=== PATIENT | female | born 1980 | race Caucasian/White ===

== ENCOUNTER 2017-11-20 10:48 | Day surgery (SDC) | payer MEDICAID ==
[~2017-11-20 10:48] MED LIST: ARIP30TA7 PO; BUSP10TA11 PO; GABA600T2 PO; LISI-600 PO; METF500T7 PO; NYST15PO4 TOP
[2017-11-20] MEDS ORDERED: LIDOcaine 2% 5ml jelly ONE (11:16)
[2017-11-20] MEDS ORDERED: TRAM50TA2 PO (14:11)
== END 2017-11-20 11:56 | disposition home or self-care (01) ==
LOC: WOUND CARE 10:48
PROVIDERS: ATTEND Surgery
DX: T81.89XD Other complications of procedures, not elsewhere classified, subsequent encounter (principal); L98.491 Non-pressure chronic ulcer of skin of other sites limited to breakdown of skin; M19.90 Unspecified osteoarthritis, unspecified site; I25.10 Atherosclerotic heart disease of native coronary artery without angina pectoris; I10 Essential (primary) hypertension; E66.9 Obesity, unspecified; F41.9 Anxiety disorder, unspecified; F32.9 Major depressive disorder, single episode, unspecified; F20.9 Schizophrenia, unspecified; F10.10 Alcohol abuse, uncomplicated; F17.200 Nicotine dependence, unspecified, uncomplicated; Z86.73 Personal history of transient ischemic attack (TIA), and cerebral infarction without residual deficits; Y83.8 Other surgical procedures as the cause of abnormal reaction of the patient, or of later complication, without mention of misadventure at the time of the procedure
CPT/HCPCS: 97597; A6021; A6206; A6213

== ENCOUNTER 2017-12-04 10:44 | Outpatient (CLI) | payer MEDICAID ==
[~2017-12-04 10:44] MED LIST changes: +TRAM50TA2 PO
== END 2017-12-04 11:35 | disposition home or self-care (01) ==
LOC: WOUND CARE 10:44 → EDSTATUS 11:00 → WOUND CARE 11:35
PROVIDERS: ATTEND Surgery
DX: T81.89XD Other complications of procedures, not elsewhere classified, subsequent encounter (principal); L98.491 Non-pressure chronic ulcer of skin of other sites limited to breakdown of skin; M19.90 Unspecified osteoarthritis, unspecified site; I25.10 Atherosclerotic heart disease of native coronary artery without angina pectoris; I10 Essential (primary) hypertension; E66.9 Obesity, unspecified; F41.9 Anxiety disorder, unspecified; F32.9 Major depressive disorder, single episode, unspecified; F20.9 Schizophrenia, unspecified; F10.10 Alcohol abuse, uncomplicated; F17.200 Nicotine dependence, unspecified, uncomplicated; Z86.73 Personal history of transient ischemic attack (TIA), and cerebral infarction without residual deficits; Y83.8 Other surgical procedures as the cause of abnormal reaction of the patient, or of later complication, without mention of misadventure at the time of the procedure
CPT/HCPCS: 99215; A6213; A6223

== ENCOUNTER 2018-01-29 10:49 | Outpatient (CLI) | payer MEDICAID | END 2018-01-29 12:17 | disposition home or self-care (01) | LOC: WOUND CARE 10:49 → EDSTATUS 11:00 → WOUND CARE 12:17 | PROVIDERS: ATTEND Surgery | DX: T81.89XD Other complications of procedures, not elsewhere classified, subsequent encounter (principal); L98.491 Non-pressure chronic ulcer of skin of other sites limited to breakdown of skin; M19.90 Unspecified osteoarthritis, unspecified site; I25.10 Atherosclerotic heart disease of native coronary artery without angina pectoris; I10 Essential (primary) hypertension; E66.9 Obesity, unspecified; F41.9 Anxiety disorder, unspecified; F32.9 Major depressive disorder, single episode, unspecified; F20.9 Schizophrenia, unspecified; F10.10 Alcohol abuse, uncomplicated; F17.200 Nicotine dependence, unspecified, uncomplicated; Z86.73 Personal history of transient ischemic attack (TIA), and cerebral infarction without residual deficits; Y83.8 Other surgical procedures as the cause of abnormal reaction of the patient, or of later complication, without mention of misadventure at the time of the procedure | CPT/HCPCS: 99215; A6021; A6206; A6212; A6213 ==

== ENCOUNTER 2018-02-26 10:50 | Day surgery (SDC) | payer MEDICAID ==
[2018-02-26] MEDS ORDERED: LIDOcaine 2% 5ml jelly ONE (11:13)
== END 2018-02-26 12:02 | disposition home or self-care (01) ==
LOC: WOUND CARE 10:50
PROVIDERS: ATTEND Surgery
DX: T81.89XD Other complications of procedures, not elsewhere classified, subsequent encounter (principal); L98.491 Non-pressure chronic ulcer of skin of other sites limited to breakdown of skin; M19.90 Unspecified osteoarthritis, unspecified site; I25.10 Atherosclerotic heart disease of native coronary artery without angina pectoris; I10 Essential (primary) hypertension; E66.9 Obesity, unspecified; F41.9 Anxiety disorder, unspecified; F32.9 Major depressive disorder, single episode, unspecified; F20.9 Schizophrenia, unspecified; F10.10 Alcohol abuse, uncomplicated; F17.200 Nicotine dependence, unspecified, uncomplicated; Z86.73 Personal history of transient ischemic attack (TIA), and cerebral infarction without residual deficits; Y83.8 Other surgical procedures as the cause of abnormal reaction of the patient, or of later complication, without mention of misadventure at the time of the procedure
CPT/HCPCS: 97597; 97598; A6021; A6212

== ENCOUNTER 2018-03-03 16:19 | Emergency (ER) | payer MEDICAID ==
[~2018-03-03] VITALS: Ht 160 cm; Wt 191.0 kg
[2018-03-03] MEDS ORDERED: CefTRIAXone 2gm/D5W 50ml 50 ML IV ONE (18:20)
[2018-03-03] MEDS ORDERED: CEPH-572 PO (18:47)
[2018-03-03 18:53] LABS: BASOPHILS % (AUTO) 0.3 % (0-1); EOSINOPHILS # (AUTO) 0.4 X10'3 (0-0.9); EOSINOPHILS % (AUTO) 3.2 % (0-6); HEMATOCRIT 25.9 % (35.0-45.0); HEMOGLOBIN 8.4 g/dl (12.0-16.0); LYMPHOCYTES # (AUTO) 1.6 X10'3 (1.1-4.8); MEAN CORPUSCULAR HEMOGLOBIN 27.2 PG (27.0-31.0); MEAN CORPUSCULAR HGB CONC 32.4 % (33.0-36.5); MEAN CORPUSCULAR VOLUME 83.9 FL (78-98); MEAN PLATELET VOLUME 7.3 FL (7.4-10.4); MONOCYTES # (AUTO) 0.7 X10'3 (0-0.9); MONOCYTES % (AUTO) 5.5 % (2-12); NEUTROPHILS # (AUTO) 9.9 X10'3 (1.8-7.7); PLATELET COUNT 404 X10'3 (140-440); RED BLOOD COUNT 3.08 X10'6 (4.20-5.60); RED CELL DISTRIBUTION WIDTH 19.9 % (11.5-14.5); WHITE BLOOD COUNT 12.6 X10'3 (4.5-11.0)
[2018-03-03 19:02] LABS: ANION GAP 12 (8-16); BLOOD UREA NITROGEN 16 MG/DL (7-18); BUN/CREATININE RATIO 14.2 (6.6-38.0); CALCIUM 8.8 MG/DL (8.5-10.1); CHLORIDE 102 MMOL/L (99-107); CREATININE 1.13 MG/DL (0.40-0.90); GLUCOSE 126 MG/DL (70-104); POTASSIUM 3.7 MMOL/L (3.5-5.1); SODIUM 140 MMOL/L (135-145); TOTAL CARBON DIOXIDE 26.1 MMOL/L (24-32); eGFR 53 ML/MIN
[2018-03-03 19:03] VITALS: BP 161/92
== END 2018-03-03 22:14 | disposition home or self-care (01) ==
LOC: ER 16:19
DX: L03.115 Cellulitis of right lower limb (principal); F17.210 Nicotine dependence, cigarettes, uncomplicated; D64.9 Anemia, unspecified; I10 Essential (primary) hypertension; Z98.890 Other specified postprocedural states; Z79.899 Other long term (current) drug therapy
CPT/HCPCS: 36415; 80048; 85025; 93971; 96365; 99285; J0696

== ENCOUNTER 2018-04-21 10:11 | Day surgery (SDC) | payer MEDICAID ==
[2018-04-21] MEDS ORDERED: LIDOcaine 2% 5ml jelly ONE (11:47)
[2018-04-21] MEDS ORDERED: CARI4.5C PO (16:46)
[2018-04-21] MEDS ORDERED: HYDR-569 PO (16:46)
== END 2018-04-21 12:57 | disposition home or self-care (01) ==
LOC: WOUND CARE 10:11
PROVIDERS: ATTEND Surgery
DX: T81.31XD Disruption of external operation (surgical) wound, not elsewhere classified, subsequent encounter (principal); L98.491 Non-pressure chronic ulcer of skin of other sites limited to breakdown of skin; M19.90 Unspecified osteoarthritis, unspecified site; I25.10 Atherosclerotic heart disease of native coronary artery without angina pectoris; I10 Essential (primary) hypertension; E66.9 Obesity, unspecified; F41.9 Anxiety disorder, unspecified; F32.9 Major depressive disorder, single episode, unspecified; F20.9 Schizophrenia, unspecified; F10.10 Alcohol abuse, uncomplicated; F17.200 Nicotine dependence, unspecified, uncomplicated; Z86.73 Personal history of transient ischemic attack (TIA), and cerebral infarction without residual deficits; Y83.8 Other surgical procedures as the cause of abnormal reaction of the patient, or of later complication, without mention of misadventure at the time of the procedure
CPT/HCPCS: 11042; 87070; 87075; 87102; 87176; 97605; A4461; A6243; A6266

== ENCOUNTER 2018-04-23 10:35 | Day surgery (SDC) | payer MEDICAID ==
[~2018-04-23 10:35] MED LIST changes: +CARI4.5C PO; +HYDR-569 PO
[2018-04-23] MEDS ORDERED: LIDOcaine 2% 5ml jelly ONE (11:20)
== END 2018-04-23 12:27 | disposition home or self-care (01) ==
LOC: WOUND CARE 10:35
PROVIDERS: ATTEND Surgery
DX: T81.31XD Disruption of external operation (surgical) wound, not elsewhere classified, subsequent encounter (principal); L98.491 Non-pressure chronic ulcer of skin of other sites limited to breakdown of skin; M19.90 Unspecified osteoarthritis, unspecified site; I25.10 Atherosclerotic heart disease of native coronary artery without angina pectoris; I10 Essential (primary) hypertension; E66.9 Obesity, unspecified; F41.9 Anxiety disorder, unspecified; F32.9 Major depressive disorder, single episode, unspecified; F20.9 Schizophrenia, unspecified; F10.10 Alcohol abuse, uncomplicated; F17.200 Nicotine dependence, unspecified, uncomplicated; Z86.73 Personal history of transient ischemic attack (TIA), and cerebral infarction without residual deficits; Y83.8 Other surgical procedures as the cause of abnormal reaction of the patient, or of later complication, without mention of misadventure at the time of the procedure
CPT/HCPCS: 97597; 97598; A6212; 97605; A4456

== ENCOUNTER 2018-05-01 10:58 | Day surgery (SDC) | payer MEDICAID ==
[2018-05-01] MEDS ORDERED: LIDOcaine 2% 5ml jelly ONE (12:07)
== END 2018-05-01 13:43 | disposition home or self-care (01) ==
LOC: WOUND CARE 10:58
PROVIDERS: ATTEND Surgery
DX: T81.31XD Disruption of external operation (surgical) wound, not elsewhere classified, subsequent encounter (principal); L98.491 Non-pressure chronic ulcer of skin of other sites limited to breakdown of skin; M19.90 Unspecified osteoarthritis, unspecified site; I25.10 Atherosclerotic heart disease of native coronary artery without angina pectoris; I10 Essential (primary) hypertension; E66.9 Obesity, unspecified; F41.9 Anxiety disorder, unspecified; F32.9 Major depressive disorder, single episode, unspecified; F20.9 Schizophrenia, unspecified; F10.10 Alcohol abuse, uncomplicated; F17.200 Nicotine dependence, unspecified, uncomplicated; Z86.73 Personal history of transient ischemic attack (TIA), and cerebral infarction without residual deficits; Y83.8 Other surgical procedures as the cause of abnormal reaction of the patient, or of later complication, without mention of misadventure at the time of the procedure
CPT/HCPCS: 11045; 97606

== ENCOUNTER 2018-05-03 15:54 | Emergency (ER) | payer MEDICAID ==
[~2018-05-03] VITALS: Ht 160 cm; Wt 195.0 kg
[2018-05-03 16:17] LABS: BASOPHILS % (AUTO) 0.4 % (0-1); EOSINOPHILS # (AUTO) 0.5 X10'3 (0-0.9); EOSINOPHILS % (AUTO) 4.3 % (0-6); HEMOGLOBIN 7.7 g/dl (12.0-16.0); LYMPHOCYTES # (AUTO) 2.4 X10'3 (1.1-4.8); LYMPHOCYTES % (AUTO) 20.8 % (21-51); MEAN CORPUSCULAR HEMOGLOBIN 27.3 PG (27.0-31.0); MEAN CORPUSCULAR HGB CONC 32.1 % (33.0-36.5); MEAN CORPUSCULAR VOLUME 85.3 FL (78-98); MEAN PLATELET VOLUME 6.6 FL (7.4-10.4); MONOCYTES # (AUTO) 0.7 X10'3 (0-0.9); NEUTROPHILS # (AUTO) 7.8 X10'3 (1.8-7.7); NEUTROPHILS % (AUTO) 68.5 % (42-75); PLATELET COUNT 533 X10'3 (140-440); RED BLOOD COUNT 2.82 X10'6 (4.20-5.60); RED CELL DISTRIBUTION WIDTH 19.1 % (11.5-14.5); WHITE BLOOD COUNT 11.4 X10'3 (4.5-11.0)
[2018-05-03 16:26] LABS: PARTIAL THROMBOPLASTIN TIME 29 SECONDS (22-32); PROTHROMBIN TIME 9.9 SECONDS (9.0-12.0)
[2018-05-03 16:31] LABS: ALANINE AMINOTRANSFERASE 11 U/L (12-78); ALBUMIN 2.9 G/DL (3.4-5.0); ALBUMIN/GLOBULIN RATIO 0.6 (1.1-1.5); ALKALINE PHOSPHATASE 89 IU/L (46-116); ANION GAP 10 (8-16); ASPARTATE AMINO TRANSFERASE 5 U/L (10-37); BILIRUBIN,TOTAL 0.3 MG/DL (0.1-1.0); BLOOD UREA NITROGEN 15 MG/DL (7-18); BUN/CREATININE RATIO 13.2 (6.6-38.0); CALCIUM 8.8 MG/DL (8.5-10.1); CHLORIDE 102 MMOL/L (99-107); CREATININE 1.14 MG/DL (0.40-0.90); GLUCOSE 113 MG/DL (70-104); POTASSIUM 3.8 MMOL/L (3.5-5.1); SODIUM 139 MMOL/L (135-145); TOTAL CARBON DIOXIDE 26.6 MMOL/L (24-32); TOTAL PROTEIN 7.6 G/DL (6.4-8.2); eGFR 53 ML/MIN
[2018-05-03 16:54] LABS: PLATELET ESTIMATE INCREASED
[2018-05-03 16:55] LABS: ANISOCYTOSIS 2+; HYPOCHROMASIA 1+; POLYCHROMASIA 2+
[2018-05-03 18:08] LABS: CLARITY,URINE SLIGHTLY CLOUDY (Clear); COLOR,URINE YELLOW (Yellow); GLUCOSE, URINE NEGATIVE (Neg); KETONES,URINE NEGATIVE (Neg); LEUKOCYTE ESTERASE ,URINE TRACE (Neg); NITRITES, URINE NEGATIVE (Neg); OCCULT BLOOD,URINE LARGE (Neg); PH,URINE 5.5 (4.8-8.0); PROTEIN,URINE NEGATIVE (Neg); UROBILINOGEN,URINE 0.2 E.U/dL (0.2-1.0)
[2018-05-03 18:09] LABS: UA COLLECTION TYPE NON-SPECIFIED
[2018-05-03 18:14] LABS: BACTERIA,URINE 1+ /HPF (Neg); COARSE GRANULAR CAST 0-3 /LPF (NEGATIVE); MUCUS STRANDS FEW /LPF (Neg); RBC,URINE 50-100 /HPF (0-2); SQUAMOUS EPITHELIAL CELL,UR FEW /LPF (FEW)
[2018-05-03] MEDS ORDERED: vancomycin/NS 1 GM ADD-VANTAGE 250 ML X 1 DOSE IV ONE (18:35)
[2018-05-03] MEDS ORDERED: ondansetron 4mg rapidly disintigrating tab PO ONE (19:10)
[2018-05-03] MEDS ORDERED: HYDROcodone/acetaminophen 10/325mg tab PO ONE (19:10)
[2018-05-03] MEDS ORDERED: piperacillin/tazo 3.375gm/50ml 50 ML IV ONE (20:00)
[2018-05-03] MEDS ORDERED: BACDS PO (21:19)
[2018-05-03] MEDS ORDERED: CEPH500C2 PO (21:19)
[2018-05-03 22:28] VITALS: BP 105/55
== END 2018-05-03 22:31 | disposition home or self-care (01) ==
LOC: ER 15:54
DX: T81.4XXA Infection following a procedure, initial encounter (principal); S31.109D Unspecified open wound of abdominal wall, unspecified quadrant without penetration into peritoneal cavity, subsequent encounter; I25.10 Atherosclerotic heart disease of native coronary artery without angina pectoris; F17.200 Nicotine dependence, unspecified, uncomplicated; F31.9 Bipolar disorder, unspecified; I10 Essential (primary) hypertension; Z98.890 Other specified postprocedural states; Z79.2 Long term (current) use of antibiotics; Z79.899 Other long term (current) drug therapy; X58.XXXD Exposure to other specified factors, subsequent encounter
CPT/HCPCS: 36415; 71045; 80053; 81001; 83605; 84145; 85025; 85610; 85730; 87040; 87088; 96365; 96366; 96368; 99285; A6253; A6258; A6446; A6449; J2543; J3370; J7030

== ENCOUNTER 2018-05-06 11:06 | Day surgery (SDC) | payer MEDICAID ==
[~2018-05-06 11:06] MED LIST changes: +BACDS PO; +CEPH500C2 PO
[2018-05-06] MEDS ORDERED: LIDOcaine 2% 5ml jelly ONE ×2 (12:14)
== END 2018-05-06 13:53 | disposition home or self-care (01) ==
LOC: WOUND CARE 11:06
PROVIDERS: ATTEND Surgery
DX: T81.31XD Disruption of external operation (surgical) wound, not elsewhere classified, subsequent encounter (principal); L98.491 Non-pressure chronic ulcer of skin of other sites limited to breakdown of skin; M19.90 Unspecified osteoarthritis, unspecified site; I25.10 Atherosclerotic heart disease of native coronary artery without angina pectoris; I10 Essential (primary) hypertension; E66.9 Obesity, unspecified; F41.9 Anxiety disorder, unspecified; F32.9 Major depressive disorder, single episode, unspecified; F20.9 Schizophrenia, unspecified; F10.10 Alcohol abuse, uncomplicated; F17.200 Nicotine dependence, unspecified, uncomplicated; Z86.73 Personal history of transient ischemic attack (TIA), and cerebral infarction without residual deficits; Y83.8 Other surgical procedures as the cause of abnormal reaction of the patient, or of later complication, without mention of misadventure at the time of the procedure
CPT/HCPCS: 11045; 97606

== ENCOUNTER 2018-05-16 11:02 | Day surgery (SDC) | payer MEDICAID ==
[~2018-05-16 11:02] MED LIST changes: -BACDS PO
[2018-05-16] MEDS ORDERED: LIDOcaine 2% 5ml jelly ONE (11:53)
[2018-05-20] MEDS ORDERED: NAPR-1144 (15:34)
[2018-05-20] MEDS ORDERED: Nystatin (15:34)
[2018-05-20] MEDS ORDERED: LISI1TAB13 (15:34)
[2018-05-20] MEDS ORDERED: DOCU-267 (15:34)
[2018-05-20] MEDS ORDERED: HYDR-3973 (15:34)
[2018-05-20] MEDS ORDERED: SENN8.6T19 (15:34)
== END 2018-05-16 13:15 | disposition home or self-care (01) ==
LOC: WOUND CARE 11:02
PROVIDERS: ATTEND Surgery
DX: T81.31XD Disruption of external operation (surgical) wound, not elsewhere classified, subsequent encounter (principal); L98.492 Non-pressure chronic ulcer of skin of other sites with fat layer exposed; M19.90 Unspecified osteoarthritis, unspecified site; I25.10 Atherosclerotic heart disease of native coronary artery without angina pectoris; I10 Essential (primary) hypertension; E66.9 Obesity, unspecified; F41.9 Anxiety disorder, unspecified; F32.9 Major depressive disorder, single episode, unspecified; F20.9 Schizophrenia, unspecified; F10.10 Alcohol abuse, uncomplicated; F17.200 Nicotine dependence, unspecified, uncomplicated; Z86.73 Personal history of transient ischemic attack (TIA), and cerebral infarction without residual deficits; Z79.2 Long term (current) use of antibiotics; Z79.899 Other long term (current) drug therapy; Y83.8 Other surgical procedures as the cause of abnormal reaction of the patient, or of later complication, without mention of misadventure at the time of the procedure
CPT/HCPCS: 11045; 97606; A4456

== ENCOUNTER 2018-05-21 11:47 | Day surgery (SDC) | payer MEDICAID ==
[2018-05-21] VITALS (12 sets, daily range): BP systolic 114–132; BP diastolic 36–72
[~2018-05-21] VITALS: Ht 160 cm; Wt 183.3 kg
[~2018-05-21 11:47] MED LIST changes: -ARIP30TA7 PO; -BUSP10TA11 PO; -CEPH500C2 PO; +DOCU-267; +DOCUMENT DATE & TIME OF BETA-BLOCKER PO ONE; +HYDR-3973; -HYDR-569 PO; -LISI-600 PO; +LISI1TAB13; +NAPR-1144; -NYST15PO4 TOP; +Nystatin; +SENN8.6T19; -TRAM50TA2 PO; +ceFAZolin inj. 3,000 MG in normal saline 100ml IV soln 100 ML IV ONE; +famotidine 20mg tablet PO ONE; +ringers solution, lacted 1,000 ML IV SCH
[2018-05-21 12:44] LABS: BASOPHILS # (AUTO) 0.1 X10'3 (0-0.2); BASOPHILS % (AUTO) 0.9 % (0-1); EOSINOPHILS # (AUTO) 0.1 X10'3 (0-0.9); EOSINOPHILS % (AUTO) 1.3 % (0-6); LYMPHOCYTES # (AUTO) 1.7 X10'3 (1.1-4.8); LYMPHOCYTES % (AUTO) 17.4 % (21-51); MEAN CORPUSCULAR HEMOGLOBIN 27.1 PG (27.0-31.0); MEAN CORPUSCULAR HGB CONC 31.9 % (33.0-36.5); MEAN CORPUSCULAR VOLUME 84.9 FL (78-98); MEAN PLATELET VOLUME 6.7 FL (7.4-10.4); MONOCYTES # (AUTO) 0.7 X10'3 (0-0.9); MONOCYTES % (AUTO) 7.3 % (2-12); NEUTROPHILS # (AUTO) 7.4 X10'3 (1.8-7.7); NEUTROPHILS % (AUTO) 73.1 % (42-75); PRE OP HEMATOCRIT 23.3 % (35.0-45.0); PRE OP PLATELET COUNT 438 X10'3 (140-440); RED BLOOD COUNT 2.75 X10'6 (4.20-5.60); RED CELL DISTRIBUTION WIDTH 18.8 % (11.5-14.5)
[2018-05-21 12:48] LABS: PRE OP HEMOGLOBIN 7.4 g/dL (12.0-16.0)
[2018-05-21 13:00] LABS: ALBUMIN/GLOBULIN RATIO 0.6 (1.1-1.5); ALKALINE PHOSPHATASE 104 IU/L (46-116); ANISOCYTOSIS 2+; BLOOD UREA NITROGEN 15 MG/DL (7-18); BUN/CREATININE RATIO 15.8 (6.6-38.0); CALCIUM 9.1 MG/DL (8.5-10.1); CHLORIDE 100 MMOL/L (99-107); CREATININE 0.95 MG/DL (0.40-0.90); PLATELET ESTIMATE NORMAL; PRE OP ALT 10 U/L (30-65); PRE OP ANION GAP 10 (8-16); PRE OP AST 6 U/L (10-37); PRE OP BILIRUB, TOTAL 0.2 MG/DL (0.0-1.0); PRE OP GLUCOSE 117 MG/DL (70-104); PRE OP POTASSIUM 3.9 MMOL/L (3.4-5.1); PRE OP SODIUM 135 MMOL/L (135-145); TOTAL CARBON DIOXIDE 25.5 MMOL/L (24-32); TOTAL PROTEIN 8.3 G/DL (6.4-8.2); eGFR 65 ML/MIN
[2018-05-21] MEDS ORDERED: LIDOcaine 1% (10mg/ml) 2ml vial ONE (13:07)
[2018-05-21] MEDS ORDERED: albuterol 2.5 MG/3 ML nebule NEB PRN (14:15)
[2018-05-21] MEDS ORDERED: ringers solution, lacted 1,000 ML IV SCH (14:49)
[2018-05-21] MEDS ORDERED: ondansetron/PF 4mg/2ml inj IV PRN (14:50)
[2018-05-21] MEDS ORDERED: fentaNYL/PF 50MCG/1 ML 2ML syringe IV PRN ×2 (14:50)
[2018-05-21] MEDS ORDERED: hydrALAZINE 20mg/ml inj. IV PRN (14:50)
[2018-05-21] MEDS ORDERED: morphine 4 MG/ML inj SYRINge IV PRN ×2 (14:50)
[2018-05-21] MEDS ORDERED: labetalol 5mg/ml 20ml inj. IV PRN (14:50)
[2018-05-21] MEDS ORDERED: ceFAZolin 1000mg inj ONE ×2 (15:16→15:26)
[2018-05-21] MEDS ORDERED: midazolam 2 mg/2 ml injection ONE (15:43)
[2018-05-21] MEDS ORDERED: dexamethasone sod phosphate 10mg/ml inj ONE (15:45)
[2018-05-21] MEDS ORDERED: sevoflurane 250ml liquid IH ONE (15:45)
[2018-05-21] MEDS ORDERED: LIDOcaine 2% (20mg/ml) 5ml vial ONE (15:45)
[2018-05-21] MEDS ORDERED: neostigmine methylsulfate 1 MG/ML 10ml vial ONE (15:45)
[2018-05-21] MEDS ORDERED: propofol inj 20 ML IV ONE ×2 (15:45)
[2018-05-21] MEDS ORDERED: succinylcholine 20mg/ml inj IV ONE (15:45)
[2018-05-21] MEDS ORDERED: naproxen 500mg tablet PO PRN (17:25)
[2018-05-21] MEDS ORDERED: sennosides 8.6mg tablet PO PRN (17:30)
[2018-05-21] MEDS: docusate sod 100mg capsule PO SCH (20:42)
[2018-05-21] MEDS: HYDROcodone/acetaminophen 10/325mg tab PO PRN (20:42)
[2018-05-21] MEDS: gabapentin 300mg capsule PO SCH (20:42)
[2018-05-21] MEDS: nystatin 15 GM powder TP SCH (20:42)
[2018-05-21] MEDS ORDERED: non-formulary drug (Gabapentin 1 TAB) PO SCH (21:00)
[2018-05-22 00:27] VITALS: BP 126/51
[2018-05-22] MEDS: HYDROcodone/acetaminophen 10/325mg tab PO PRN ×2 (02:36→08:25)
[2018-05-22 04:23] VITALS: BP 131/65
[2018-05-22 07:08] VITALS: BP 116/47
[2018-05-22] MEDS ORDERED: CARIPRAZINE HYDROCHLORIDE PO SCH (08:00)
[2018-05-22] MEDS ORDERED: lisinopril 20mg tablet PO SCH (08:00)
[2018-05-22] MEDS ORDERED: CARIPRAZINE 4.5 MG PO SCH (08:00)
[2018-05-22] MEDS ORDERED: non-formulary drug (Metformin Hcl* (Metformin ER*) 1 TAB) PO SCH (08:00)
[2018-05-22] MEDS ORDERED: metFORMIN 500mg tablet PO SCH (08:00)
[2018-05-22] MEDS: docusate sod 100mg capsule PO SCH ×2 (08:00→08:21)
[2018-05-22] MEDS ORDERED: LORazepam 0.5 MG tablet PO PRN (08:05)
[2018-05-22] MEDS ORDERED: mag hydrox/Alum hydrox/simeth 30ml oral suspension PO PRN (08:20)
[2018-05-22] MEDS ORDERED: HYDROcodone/acetaminophen 10/325mg tab PO PRN (08:20)
[2018-05-22] MEDS ORDERED: magnesium hydroxide 30ml (MOM) UD suspension PO PRN (08:20)
[2018-05-22] MEDS: gabapentin 300mg capsule PO SCH ×2 (08:20→13:20)
[2018-05-22] MEDS ORDERED: ondansetron/PF 4mg/2ml inj IV PRN (08:20)
[2018-05-22] MEDS ORDERED: HYDROcodone/acetaminophen 5mg/325mg tablet PO PRN (08:20)
[2018-05-22] MEDS ORDERED: morphine 4 MG/ML inj SYRINge IV PRN ×2 (08:20)
[2018-05-22] MEDS ORDERED: acetaminophen 325mg tablet PO PRN ×2 (08:20)
[2018-05-22] MEDS: nystatin 15 GM powder TP SCH (08:25)
[2018-05-22 11:23] VITALS: BP_SYST 129; BP_SYST 136; BP_DIAS 44; BP_DIAS 75
[2018-05-23] MEDS ORDERED: enoxaparin 40mg/0.4ml syringe SUBCUT SCH (08:00)
== END 2018-05-22 16:08 | disposition home or self-care (01) ==
LOC: PAS 11:47 → SUR 3N 18:09 → PAS 05-22 16:08
PROVIDERS: ATTEND Surgery
DX: T81.4XXA Infection following a procedure, initial encounter (principal); E66.01 Morbid (severe) obesity due to excess calories; I10 Essential (primary) hypertension; F41.8 Other specified anxiety disorders; F25.9 Schizoaffective disorder, unspecified; G47.33 Obstructive sleep apnea (adult) (pediatric); E11.9 Type 2 diabetes mellitus without complications; G89.29 Other chronic pain; M19.90 Unspecified osteoarthritis, unspecified site; F32.9 Major depressive disorder, single episode, unspecified; J44.9 Chronic obstructive pulmonary disease, unspecified; F17.210 Nicotine dependence, cigarettes, uncomplicated; I45.19 Other right bundle-branch block; Z72.89 Other problems related to lifestyle; Z86.73 Personal history of transient ischemic attack (TIA), and cerebral infarction without residual deficits; Z68.45 Body mass index [BMI] 70 or greater, adult; Z79.84 Long term (current) use of oral hypoglycemic drugs; Z79.891 Long term (current) use of opiate analgesic; Z79.899 Other long term (current) drug therapy; Z98.890 Other specified postprocedural states; Z82.3 Family history of stroke; Z82.49 Family history of ischemic heart disease and other diseases of the circulatory system
CPT/HCPCS: 11005; 36415; 80053; 82948; 83036; 85025; 86870; 86885; 86900; 86901; 86902; 86905; 86922; 87070; 93005; 94640; 94660; 94760; J0330; J0690; J1100; J2001; J2250; J2704; J2710; J3490; J7030; J7120; A7000

== ENCOUNTER 2018-06-06 08:20 | Day surgery (SDC) | payer MEDICAID ==
[~2018-06-06 08:20] MED LIST changes: -DOCUMENT DATE & TIME OF BETA-BLOCKER PO ONE; -ceFAZolin inj. 3,000 MG in normal saline 100ml IV soln 100 ML IV ONE; -famotidine 20mg tablet PO ONE; -ringers solution, lacted 1,000 ML IV SCH
[2018-06-06] MEDS ORDERED: LIDOcaine 2% 5ml jelly ONE ×2 (09:50→10:08)
== END 2018-06-06 11:05 | disposition home or self-care (01) ==
LOC: WOUND CARE 08:20
PROVIDERS: ATTEND Surgery
DX: T81.31XD Disruption of external operation (surgical) wound, not elsewhere classified, subsequent encounter (principal); L98.492 Non-pressure chronic ulcer of skin of other sites with fat layer exposed; M19.90 Unspecified osteoarthritis, unspecified site; I25.10 Atherosclerotic heart disease of native coronary artery without angina pectoris; I10 Essential (primary) hypertension; E66.9 Obesity, unspecified; F41.9 Anxiety disorder, unspecified; F32.9 Major depressive disorder, single episode, unspecified; F20.9 Schizophrenia, unspecified; F10.10 Alcohol abuse, uncomplicated; F17.200 Nicotine dependence, unspecified, uncomplicated; Z86.73 Personal history of transient ischemic attack (TIA), and cerebral infarction without residual deficits; Z79.2 Long term (current) use of antibiotics; Z79.899 Other long term (current) drug therapy; Y83.8 Other surgical procedures as the cause of abnormal reaction of the patient, or of later complication, without mention of misadventure at the time of the procedure
CPT/HCPCS: 11045; 97605; 97606; 97608; A4456

== ENCOUNTER 2018-06-13 09:31 | Day surgery (SDC) | payer MEDICAID ==
[2018-06-13] MEDS ORDERED: LIDOcaine 2% 5ml jelly ONE (11:03)
== END 2018-06-13 12:30 | disposition home or self-care (01) ==
LOC: WOUND CARE 09:31
PROVIDERS: ATTEND Surgery
DX: T81.31XD Disruption of external operation (surgical) wound, not elsewhere classified, subsequent encounter (principal); L98.492 Non-pressure chronic ulcer of skin of other sites with fat layer exposed; M19.90 Unspecified osteoarthritis, unspecified site; I25.10 Atherosclerotic heart disease of native coronary artery without angina pectoris; I10 Essential (primary) hypertension; E66.9 Obesity, unspecified; F41.9 Anxiety disorder, unspecified; F32.9 Major depressive disorder, single episode, unspecified; F20.9 Schizophrenia, unspecified; F10.10 Alcohol abuse, uncomplicated; F17.200 Nicotine dependence, unspecified, uncomplicated; Z86.73 Personal history of transient ischemic attack (TIA), and cerebral infarction without residual deficits; Z79.2 Long term (current) use of antibiotics; Z79.899 Other long term (current) drug therapy; Y83.8 Other surgical procedures as the cause of abnormal reaction of the patient, or of later complication, without mention of misadventure at the time of the procedure
CPT/HCPCS: 11042; A6243

== ENCOUNTER 2018-06-30 10:31 | Outpatient (CLI) | payer MEDICAID ==
[2018-06-30] MEDS ORDERED: COLL30OI TP (15:46)
[2018-06-30] MEDS ORDERED: AMOX-318 (15:46)
[2018-06-30] MEDS ORDERED: FLUC100T PO (15:47)
[2018-06-30] MEDS ORDERED: NYST30CR2 TP (15:48)
[2018-06-30] MEDS ORDERED: LACTC PO (15:48)
== END 2018-06-30 12:58 | disposition home or self-care (01) ==
LOC: WOUND CARE 10:31
PROVIDERS: ATTEND Surgery
DX: T81.31XD Disruption of external operation (surgical) wound, not elsewhere classified, subsequent encounter (principal); L98.492 Non-pressure chronic ulcer of skin of other sites with fat layer exposed; L89.892 Pressure ulcer of other site, stage 2; L97.221 Non-pressure chronic ulcer of left calf limited to breakdown of skin; L97.111 Non-pressure chronic ulcer of right thigh limited to breakdown of skin; M19.90 Unspecified osteoarthritis, unspecified site; I25.10 Atherosclerotic heart disease of native coronary artery without angina pectoris; I10 Essential (primary) hypertension; E66.9 Obesity, unspecified; F41.9 Anxiety disorder, unspecified; F32.9 Major depressive disorder, single episode, unspecified; F20.9 Schizophrenia, unspecified; F10.10 Alcohol abuse, uncomplicated; F17.200 Nicotine dependence, unspecified, uncomplicated; Z86.73 Personal history of transient ischemic attack (TIA), and cerebral infarction without residual deficits; Z79.2 Long term (current) use of antibiotics; Z79.899 Other long term (current) drug therapy; Y83.8 Other surgical procedures as the cause of abnormal reaction of the patient, or of later complication, without mention of misadventure at the time of the procedure
CPT/HCPCS: 36415; 83036; 99215; A4456

== ENCOUNTER 2018-07-16 06:50 | Day surgery (SDC) | payer MEDICAID ==
[2018-07-15 15:42] LABS: BASOPHILS % (AUTO) 0.4 % (0-1); EOSINOPHILS # (AUTO) 0.4 X10'3 (0-0.9); EOSINOPHILS % (AUTO) 3.7 % (0-6); LYMPHOCYTES # (AUTO) 1.8 X10'3 (1.1-4.8); LYMPHOCYTES % (AUTO) 15.8 % (21-51); MEAN CORPUSCULAR HEMOGLOBIN 26.8 PG (27.0-31.0); MEAN CORPUSCULAR HGB CONC 32.1 % (33.0-36.5); MEAN CORPUSCULAR VOLUME 83.5 FL (78-98); MEAN PLATELET VOLUME 7.5 FL (7.4-10.4); MONOCYTES # (AUTO) 0.6 X10'3 (0-0.9); MONOCYTES % (AUTO) 4.8 % (2-12); NEUTROPHILS # (AUTO) 8.7 X10'3 (1.8-7.7); NEUTROPHILS % (AUTO) 75.3 % (42-75); PRE OP HEMATOCRIT 27.2 % (35.0-45.0); PRE OP PLATELET COUNT 371 X10'3 (140-440); RED BLOOD COUNT 3.26 X10'6 (4.20-5.60); RED CELL DISTRIBUTION WIDTH 20.5 % (11.5-14.5)
[2018-07-15 15:47] LABS: PRE OP HEMOGLOBIN 8.7 g/dL (12.0-16.0)
[2018-07-15 15:50] LABS: HEMOGLOBIN A1C 5.4 % (4.5-6.2)
[2018-07-15 15:57] LABS: ALBUMIN 3.3 G/DL (3.4-5.0); ALBUMIN/GLOBULIN RATIO 0.8 (1.1-1.5); ALKALINE PHOSPHATASE 93 IU/L (46-116); BLOOD UREA NITROGEN 16 MG/DL (7-18); BUN/CREATININE RATIO 18.8 (6.6-38.0); CALCIUM 8.9 MG/DL (8.5-10.1); CHLORIDE 102 MMOL/L (99-107); CREATININE 0.85 MG/DL (0.40-0.90); PRE OP ALT 11 U/L (30-65); PRE OP ANION GAP 9 (8-16); PRE OP AST 8 U/L (10-37); PRE OP BILIRUB, TOTAL 0.3 MG/DL (0.0-1.0); PRE OP GLUCOSE 116 MG/DL (70-104); PRE OP POTASSIUM 3.6 MMOL/L (3.4-5.1); PRE OP SODIUM 136 MMOL/L (135-145); TOTAL PROTEIN 7.5 G/DL (6.4-8.2); eGFR 74 ML/MIN
[2018-07-15 16:14] LABS: HCG SERUM QL NEGATIVE
[2018-07-15 16:20] LABS: ANISOCYTOSIS 2+; HYPOCHROMASIA 1+; MICROCYTOSIS 1+; PLATELET ESTIMATE NORMAL
[2018-07-15 16:21] LABS: POLYCHROMASIA 1+
[~2018-07-16] VITALS: Ht 160 cm; Wt 182.7 kg
[2018-07-16] VITALS (13 sets, daily range): BP systolic 103–135; BP diastolic 53–74
[~2018-07-16 06:50] MED LIST changes: +BUSP30TA3 PO; +COLL30OI TP; -DOCU-267; +DOCU-267 PO; -HYDR-3973; -LISI1TAB13; +LISI1TAB13 PO; -NAPR-1144; +NAPR-1144 PO; +NYST30CR2 TP; -Nystatin; -SENN8.6T19; +SENN8.6T19 PO; +TRAZ150T78 PO; +albuterol 2.5 MG/3 ML nebule NEB ONE; +ceFAZolin inj. 3,000 MG in normal saline 100ml IV soln 100 ML IV ONE; +famotidine 20mg tablet PO ONE; +ringers solution, lacted 1,000 ML IV SCH
[2018-07-16] MEDS ORDERED: sevoflurane 250ml liquid IH ONE (10:33)
[2018-07-16] MEDS ORDERED: midazolam 2 mg/2 ml injection ONE (10:34)
[2018-07-16] MEDS ORDERED: fentaNYL/PF 50MCG/1 ML 2ML syringe ONE (10:34)
[2018-07-16] MEDS ORDERED: propofol inj 20 ML IV ONE ×2 (10:36→10:46)
[2018-07-16] MEDS ORDERED: rocuronium 10mg/ml inj IV ONE (10:37)
[2018-07-16] MEDS ORDERED: LIDOcaine 2% (20mg/ml) 5ml vial ONE (10:50)
[2018-07-16] MEDS ORDERED: meperidine/PF 25mg/ml syringe IV PRN ×3 (11:00)
[2018-07-16] MEDS ORDERED: ondansetron/PF 4mg/2ml inj IV PRN (11:00)
[2018-07-16] MEDS ORDERED: morphine 4 MG/ML inj SYRINge IV PRN ×2 (11:00)
[2018-07-16] MEDS ORDERED: ringers solution, lacted 1,000 ML IV SCH (11:00)
[2018-07-16] MEDS ORDERED: proCHLORperazine 10 MG/2 ml inj IV PRN (11:00)
[2018-07-16] MEDS ORDERED: ceFAZolin 1000mg inj ONE (11:17)
[2018-07-16] MEDS ORDERED: glycopyrrolate 0.2mg/ml inj ONE (11:23)
[2018-07-16] MEDS ORDERED: neostigmine methylsulfate 1 MG/ML 10ml vial ONE (11:23)
== END 2018-07-16 13:33 | disposition home or self-care (01) ==
LOC: PAS 06:50
PROVIDERS: ATTEND Surgery
DX: T81.89XA Other complications of procedures, not elsewhere classified, initial encounter (principal); Y83.8 Other surgical procedures as the cause of abnormal reaction of the patient, or of later complication, without mention of misadventure at the time of the procedure; Y92.89 Other specified places as the place of occurrence of the external cause; E66.01 Morbid (severe) obesity due to excess calories; G47.33 Obstructive sleep apnea (adult) (pediatric); F17.210 Nicotine dependence, cigarettes, uncomplicated; I10 Essential (primary) hypertension; E11.9 Type 2 diabetes mellitus without complications; M19.90 Unspecified osteoarthritis, unspecified site; F32.9 Major depressive disorder, single episode, unspecified; F41.8 Other specified anxiety disorders; J44.9 Chronic obstructive pulmonary disease, unspecified; F20.89 Other schizophrenia; G89.29 Other chronic pain; F10.10 Alcohol abuse, uncomplicated; Z68.45 Body mass index [BMI] 70 or greater, adult; Z87.442 Personal history of urinary calculi; Z79.891 Long term (current) use of opiate analgesic; Z79.2 Long term (current) use of antibiotics; Z86.73 Personal history of transient ischemic attack (TIA), and cerebral infarction without residual deficits; Z79.4 Long term (current) use of insulin; Z79.899 Other long term (current) drug therapy; Z98.890 Other specified postprocedural states; Z82.3 Family history of stroke; Z82.49 Family history of ischemic heart disease and other diseases of the circulatory system
CPT/HCPCS: 11042; 11045; 36415; 80053; 82948; 83036; 84703; 85025; 86870; 86880; 86885; 86900; 86901; 86902; 86905; 86922; A6253; A6446; J0690; J2001; J2250; J2704; J2710; J3010; J3490; J7030; J7120; A7000

== ENCOUNTER 2018-07-21 10:30 | Day surgery (SDC) | payer MEDICAID ==
[2017-07-03 20:05] VITALS: BP_SYST 90
[~2018-07-21 10:30] MED LIST changes: -albuterol 2.5 MG/3 ML nebule NEB ONE; -ceFAZolin inj. 3,000 MG in normal saline 100ml IV soln 100 ML IV ONE; -famotidine 20mg tablet PO ONE; -ringers solution, lacted 1,000 ML IV SCH
[2018-07-21] MEDS ORDERED: LIDOcaine/PRILOcaine 5gm cream TP ONE ×2 (11:50)
== END 2018-07-21 13:08 | disposition home or self-care (01) ==
LOC: WOUND CARE 10:30
PROVIDERS: ATTEND Surgery
DX: T81.31XD Disruption of external operation (surgical) wound, not elsewhere classified, subsequent encounter (principal); L98.492 Non-pressure chronic ulcer of skin of other sites with fat layer exposed; L89.893 Pressure ulcer of other site, stage 3; L97.221 Non-pressure chronic ulcer of left calf limited to breakdown of skin; L97.111 Non-pressure chronic ulcer of right thigh limited to breakdown of skin; M19.90 Unspecified osteoarthritis, unspecified site; I25.10 Atherosclerotic heart disease of native coronary artery without angina pectoris; I10 Essential (primary) hypertension; E66.9 Obesity, unspecified; F41.9 Anxiety disorder, unspecified; F32.9 Major depressive disorder, single episode, unspecified; F20.9 Schizophrenia, unspecified; F10.10 Alcohol abuse, uncomplicated; F17.200 Nicotine dependence, unspecified, uncomplicated; Z86.73 Personal history of transient ischemic attack (TIA), and cerebral infarction without residual deficits; Z79.2 Long term (current) use of antibiotics; Z79.899 Other long term (current) drug therapy; Y83.8 Other surgical procedures as the cause of abnormal reaction of the patient, or of later complication, without mention of misadventure at the time of the procedure
CPT/HCPCS: 86860; 86870; 97597; 97598; A6021; A6212; A6222

== ENCOUNTER 2018-07-28 09:59 | Day surgery (SDC) | payer MEDICAID ==
[2018-07-28] MEDS ORDERED: nystatin 15 GM powder TP ONE (12:35)
== END 2018-07-28 13:23 | disposition home or self-care (01) ==
LOC: WOUND CARE 09:59
PROVIDERS: ATTEND Surgery
DX: T81.31XD Disruption of external operation (surgical) wound, not elsewhere classified, subsequent encounter (principal); L98.492 Non-pressure chronic ulcer of skin of other sites with fat layer exposed; L97.221 Non-pressure chronic ulcer of left calf limited to breakdown of skin; L97.111 Non-pressure chronic ulcer of right thigh limited to breakdown of skin; M19.90 Unspecified osteoarthritis, unspecified site; I25.10 Atherosclerotic heart disease of native coronary artery without angina pectoris; I10 Essential (primary) hypertension; E66.9 Obesity, unspecified; F41.9 Anxiety disorder, unspecified; F32.9 Major depressive disorder, single episode, unspecified; F20.9 Schizophrenia, unspecified; F10.10 Alcohol abuse, uncomplicated; F17.200 Nicotine dependence, unspecified, uncomplicated; Z86.73 Personal history of transient ischemic attack (TIA), and cerebral infarction without residual deficits; Z79.2 Long term (current) use of antibiotics; Z79.899 Other long term (current) drug therapy; Y83.8 Other surgical procedures as the cause of abnormal reaction of the patient, or of later complication, without mention of misadventure at the time of the procedure
CPT/HCPCS: 87070; 87075; 87077; 87102; 87186; 97597; A6021; A6206; A6212; A6243; 97605

== ENCOUNTER 2018-08-07 10:45 | Outpatient (CLI) | payer MEDICAID ==
[2018-08-07] MEDS ORDERED: LIDOcaine/PRILOcaine 5gm cream TP ONE (12:44)
== END 2018-08-07 14:09 | disposition home or self-care (01) ==
LOC: WOUND CARE 10:45 → EDSTATUS 11:00 → WOUND CARE 14:09
PROVIDERS: ATTEND Surgery
DX: T81.31XD Disruption of external operation (surgical) wound, not elsewhere classified, subsequent encounter (principal); L98.492 Non-pressure chronic ulcer of skin of other sites with fat layer exposed; L97.221 Non-pressure chronic ulcer of left calf limited to breakdown of skin; L97.111 Non-pressure chronic ulcer of right thigh limited to breakdown of skin; M19.90 Unspecified osteoarthritis, unspecified site; I25.10 Atherosclerotic heart disease of native coronary artery without angina pectoris; I10 Essential (primary) hypertension; E66.9 Obesity, unspecified; L89.893 Pressure ulcer of other site, stage 3; F41.9 Anxiety disorder, unspecified; F32.9 Major depressive disorder, single episode, unspecified; F20.9 Schizophrenia, unspecified; F10.10 Alcohol abuse, uncomplicated; F17.200 Nicotine dependence, unspecified, uncomplicated; Z86.73 Personal history of transient ischemic attack (TIA), and cerebral infarction without residual deficits; Z79.2 Long term (current) use of antibiotics; Z79.899 Other long term (current) drug therapy; Y83.8 Other surgical procedures as the cause of abnormal reaction of the patient, or of later complication, without mention of misadventure at the time of the procedure
CPT/HCPCS: 87070; 87075; 87077; 87102; 87186; 97606; A6021; A6212; A6222

== ENCOUNTER 2018-08-14 09:45 | Day surgery (SDC) | payer MEDICAID ==
[2018-08-14] MEDS ORDERED: LIDOcaine/PRILOcaine 5gm cream TP ONE (12:49)
== END 2018-08-14 13:45 | disposition home or self-care (01) ==
LOC: WOUND CARE 09:45
PROVIDERS: ATTEND Surgery
DX: T81.31XD Disruption of external operation (surgical) wound, not elsewhere classified, subsequent encounter (principal); L98.492 Non-pressure chronic ulcer of skin of other sites with fat layer exposed; L97.221 Non-pressure chronic ulcer of left calf limited to breakdown of skin; L97.111 Non-pressure chronic ulcer of right thigh limited to breakdown of skin; M19.90 Unspecified osteoarthritis, unspecified site; I25.10 Atherosclerotic heart disease of native coronary artery without angina pectoris; I10 Essential (primary) hypertension; E66.9 Obesity, unspecified; L89.893 Pressure ulcer of other site, stage 3; F41.9 Anxiety disorder, unspecified; F32.9 Major depressive disorder, single episode, unspecified; F20.9 Schizophrenia, unspecified; F10.10 Alcohol abuse, uncomplicated; F17.200 Nicotine dependence, unspecified, uncomplicated; Z86.73 Personal history of transient ischemic attack (TIA), and cerebral infarction without residual deficits; Z79.2 Long term (current) use of antibiotics; Z79.899 Other long term (current) drug therapy; Y83.8 Other surgical procedures as the cause of abnormal reaction of the patient, or of later complication, without mention of misadventure at the time of the procedure
CPT/HCPCS: 97597; A6021; A6212

== ENCOUNTER 2018-08-22 09:58 | Day surgery (SDC) | payer MEDICAID ==
[2018-08-22] MEDS ORDERED: LIDOcaine 2% 5ml jelly TOP ONE (14:00)
== END 2018-08-22 12:35 | disposition home or self-care (01) ==
LOC: WOUND CARE 09:58
PROVIDERS: ATTEND Surgery
DX: T81.31XD Disruption of external operation (surgical) wound, not elsewhere classified, subsequent encounter (principal); L98.492 Non-pressure chronic ulcer of skin of other sites with fat layer exposed; L97.221 Non-pressure chronic ulcer of left calf limited to breakdown of skin; L97.111 Non-pressure chronic ulcer of right thigh limited to breakdown of skin; M19.90 Unspecified osteoarthritis, unspecified site; I25.10 Atherosclerotic heart disease of native coronary artery without angina pectoris; I10 Essential (primary) hypertension; E66.9 Obesity, unspecified; L89.893 Pressure ulcer of other site, stage 3; F41.9 Anxiety disorder, unspecified; F32.9 Major depressive disorder, single episode, unspecified; F20.9 Schizophrenia, unspecified; F10.10 Alcohol abuse, uncomplicated; F17.200 Nicotine dependence, unspecified, uncomplicated; Z86.73 Personal history of transient ischemic attack (TIA), and cerebral infarction without residual deficits; Z79.2 Long term (current) use of antibiotics; Z79.899 Other long term (current) drug therapy; Y83.8 Other surgical procedures as the cause of abnormal reaction of the patient, or of later complication, without mention of misadventure at the time of the procedure
CPT/HCPCS: 97597; 97598; A6021; A6206; A6212

== ENCOUNTER 2018-08-29 10:23 | Day surgery (SDC) | payer MEDICAID | END 2018-08-29 12:20 | disposition home or self-care (01) | LOC: WOUND CARE 10:23 | PROVIDERS: ATTEND Surgery | DX: T81.31XD Disruption of external operation (surgical) wound, not elsewhere classified, subsequent encounter (principal); L98.492 Non-pressure chronic ulcer of skin of other sites with fat layer exposed; L97.221 Non-pressure chronic ulcer of left calf limited to breakdown of skin; L97.111 Non-pressure chronic ulcer of right thigh limited to breakdown of skin; M19.90 Unspecified osteoarthritis, unspecified site; I25.10 Atherosclerotic heart disease of native coronary artery without angina pectoris; I10 Essential (primary) hypertension; E66.9 Obesity, unspecified; L89.893 Pressure ulcer of other site, stage 3; F41.9 Anxiety disorder, unspecified; F32.9 Major depressive disorder, single episode, unspecified; F20.9 Schizophrenia, unspecified; F10.10 Alcohol abuse, uncomplicated; F17.200 Nicotine dependence, unspecified, uncomplicated; Z86.73 Personal history of transient ischemic attack (TIA), and cerebral infarction without residual deficits; Z79.2 Long term (current) use of antibiotics; Z79.899 Other long term (current) drug therapy; Y83.8 Other surgical procedures as the cause of abnormal reaction of the patient, or of later complication, without mention of misadventure at the time of the procedure | CPT/HCPCS: 97597; 97606; A4456 ==

== ENCOUNTER 2018-09-05 10:22 | Outpatient (CLI) | payer MEDICAID ==
[~2018-09-05 10:22] MED LIST changes: +ARIP30TA7 PO
== END 2018-09-05 11:34 | disposition home or self-care (01) ==
LOC: WOUND CARE 10:22 → EDSTATUS 10:30 → WOUND CARE 11:34
PROVIDERS: ATTEND Surgery
DX: T81.31XD Disruption of external operation (surgical) wound, not elsewhere classified, subsequent encounter (principal); L98.492 Non-pressure chronic ulcer of skin of other sites with fat layer exposed; L97.221 Non-pressure chronic ulcer of left calf limited to breakdown of skin; L97.111 Non-pressure chronic ulcer of right thigh limited to breakdown of skin; M19.90 Unspecified osteoarthritis, unspecified site; I25.10 Atherosclerotic heart disease of native coronary artery without angina pectoris; I10 Essential (primary) hypertension; E66.9 Obesity, unspecified; L89.893 Pressure ulcer of other site, stage 3; F41.9 Anxiety disorder, unspecified; F32.9 Major depressive disorder, single episode, unspecified; F20.9 Schizophrenia, unspecified; F10.10 Alcohol abuse, uncomplicated; F17.200 Nicotine dependence, unspecified, uncomplicated; Z86.73 Personal history of transient ischemic attack (TIA), and cerebral infarction without residual deficits; Z79.2 Long term (current) use of antibiotics; Z79.899 Other long term (current) drug therapy; Y83.8 Other surgical procedures as the cause of abnormal reaction of the patient, or of later complication, without mention of misadventure at the time of the procedure
CPT/HCPCS: 97606; A6206; A6212

== ENCOUNTER 2018-09-10 08:58 | Day surgery (SDC) | payer MEDICAID ==
[~2018-09-10] VITALS: Ht 160 cm; Wt 179.6 kg
[2018-09-10] VITALS (11 sets, daily range): BP systolic 99–120; BP diastolic 39–76
[~2018-09-10 08:58] MED LIST changes: -CARI4.5C PO; +ceFAZolin 1,000 MG in NS 100ML IVPB IV ONE; +ceFAZolin inj. 3,000 MG in normal saline 100ml IV soln 100 ML IV ONE; +cefazolin/dext.iso 2gm/100ml 100 ML IV ONE; +famotidine 20mg tablet PO ONE; +ringers solution, lacted 1,000 ML IV SCH
[2018-09-10 10:37] LABS: ALBUMIN 3.5 G/DL (3.4-5.0); ALBUMIN/GLOBULIN RATIO 0.7 (1.1-1.5); ALKALINE PHOSPHATASE 104 IU/L (46-116); BLOOD UREA NITROGEN 19 MG/DL (7-18); BUN/CREATININE RATIO 20.2 (6.6-38.0); CALCIUM 9.6 MG/DL (8.5-10.1); CHLORIDE 99 MMOL/L (99-107); CREATININE 0.94 MG/DL (0.40-0.90); PRE OP ALT 14 U/L (30-65); PRE OP ANION GAP 11 (8-16); PRE OP AST 12 U/L (10-37); PRE OP BILIRUB, TOTAL 0.2 MG/DL (0.0-1.0); PRE OP GLUCOSE 104 MG/DL (70-104); PRE OP SODIUM 138 MMOL/L (135-145); TOTAL CARBON DIOXIDE 28.5 MMOL/L (24-32); TOTAL PROTEIN 8.8 G/DL (6.4-8.2); eGFR 66 ML/MIN
[2018-09-10 10:39] LABS: BASOPHILS # (AUTO) 0.2 X10'3 (0-0.2); EOSINOPHILS # (AUTO) 0.3 X10'3 (0-0.9); EOSINOPHILS % (AUTO) 2.6 % (0-6); LYMPHOCYTES # (AUTO) 1.8 X10'3 (1.1-4.8); LYMPHOCYTES % (AUTO) 17.2 % (21-51); MEAN CORPUSCULAR HEMOGLOBIN 26.1 PG (27.0-31.0); MEAN CORPUSCULAR HGB CONC 32.2 % (33.0-36.5); MEAN CORPUSCULAR VOLUME 81.2 FL (78-98); MEAN PLATELET VOLUME 7.6 FL (7.4-10.4); MONOCYTES # (AUTO) 0.4 X10'3 (0-0.9); MONOCYTES % (AUTO) 3.9 % (2-12); NEUTROPHILS # (AUTO) 7.8 X10'3 (1.8-7.7); NEUTROPHILS % (AUTO) 74.4 % (42-75); PRE OP HEMATOCRIT 28.4 % (35.0-45.0); PRE OP PLATELET COUNT 449 X10'3 (140-440); RED CELL DISTRIBUTION WIDTH 18.9 % (11.5-14.5)
[2018-09-10 10:43] LABS: BASOPHILS % (AUTO) 1.4 % (0-1); PRE OP HEMOGLOBIN 9.1 g/dL (12.0-16.0)
[2018-09-10 10:44] LABS: PRE OP POTASSIUM 4.6 MMOL/L (3.4-5.1)
[2018-09-10] MEDS ORDERED: ceFAZolin 1000mg inj ONE (11:53)
[2018-09-10] MEDS ORDERED: bacitracin 15gm ointment TP ONE (11:53)
[2018-09-10] MEDS ORDERED: propofol 10mg/ml 20ml vial IV ONE (12:03)
[2018-09-10] MEDS ORDERED: sevoflurane 250ml liquid IH ONE (12:03)
[2018-09-10] MEDS ORDERED: fentaNYL/PF 50MCG/1 ML 2ML syringe ONE (12:05)
[2018-09-10] MEDS ORDERED: propofol inj 20 ML IV ONE (12:05)
[2018-09-10] MEDS ORDERED: midazolam 2 mg/2 ml injection ONE (12:05)
[2018-09-10] MEDS ORDERED: ringers solution, lacted 1,000 ML IV SCH (12:41)
[2018-09-10] MEDS ORDERED: proCHLORperazine 10 MG/2 ml inj IV PRN (12:45)
[2018-09-10] MEDS ORDERED: meperidine/PF 25mg/ml syringe IV PRN ×3 (12:45)
[2018-09-10] MEDS ORDERED: ondansetron/PF 4mg/2ml inj IV PRN (12:45)
[2018-09-10] MEDS ORDERED: morphine 4 MG/ML inj SYRINge IV PRN ×2 (12:45)
== END 2018-09-10 17:01 | disposition home or self-care (01) ==
LOC: PAS 08:58
PROVIDERS: ATTEND Surgery
DX: T81.89XA Other complications of procedures, not elsewhere classified, initial encounter (principal); Y83.8 Other surgical procedures as the cause of abnormal reaction of the patient, or of later complication, without mention of misadventure at the time of the procedure; Y92.89 Other specified places as the place of occurrence of the external cause; E66.01 Morbid (severe) obesity due to excess calories; G47.33 Obstructive sleep apnea (adult) (pediatric); F17.210 Nicotine dependence, cigarettes, uncomplicated; E11.9 Type 2 diabetes mellitus without complications; F25.8 Other schizoaffective disorders; I10 Essential (primary) hypertension; M19.90 Unspecified osteoarthritis, unspecified site; G89.29 Other chronic pain; F32.9 Major depressive disorder, single episode, unspecified; F41.8 Other specified anxiety disorders; Z99.81 Dependence on supplemental oxygen; Z68.45 Body mass index [BMI] 70 or greater, adult; Z72.89 Other problems related to lifestyle; Z79.84 Long term (current) use of oral hypoglycemic drugs; Z86.73 Personal history of transient ischemic attack (TIA), and cerebral infarction without residual deficits; Z86.74 Personal history of sudden cardiac arrest; Z79.891 Long term (current) use of opiate analgesic; Z79.899 Other long term (current) drug therapy; Z98.890 Other specified postprocedural states; Z82.3 Family history of stroke; Z82.49 Family history of ischemic heart disease and other diseases of the circulatory system
CPT/HCPCS: 11042; 36415; 80053; 85025; 97605; J0690; J2250; J2270; J2704; J3010; J7120; A7000; J7030

== ENCOUNTER 2018-09-12 10:39 | Outpatient (CLI) | payer MEDICAID ==
[~2018-09-12 10:39] MED LIST changes: -ceFAZolin 1,000 MG in NS 100ML IVPB IV ONE; -ceFAZolin inj. 3,000 MG in normal saline 100ml IV soln 100 ML IV ONE; -cefazolin/dext.iso 2gm/100ml 100 ML IV ONE; -famotidine 20mg tablet PO ONE; -ringers solution, lacted 1,000 ML IV SCH
== END 2018-09-12 12:55 | disposition home or self-care (01) ==
LOC: WOUND CARE 10:39
PROVIDERS: ATTEND Surgery
DX: T81.89XD Other complications of procedures, not elsewhere classified, subsequent encounter (principal); L98.492 Non-pressure chronic ulcer of skin of other sites with fat layer exposed; L97.221 Non-pressure chronic ulcer of left calf limited to breakdown of skin; L97.111 Non-pressure chronic ulcer of right thigh limited to breakdown of skin; M19.90 Unspecified osteoarthritis, unspecified site; I25.10 Atherosclerotic heart disease of native coronary artery without angina pectoris; I10 Essential (primary) hypertension; E66.9 Obesity, unspecified; L89.893 Pressure ulcer of other site, stage 3; F41.9 Anxiety disorder, unspecified; F32.9 Major depressive disorder, single episode, unspecified; F20.9 Schizophrenia, unspecified; F10.10 Alcohol abuse, uncomplicated; F17.200 Nicotine dependence, unspecified, uncomplicated; Z86.73 Personal history of transient ischemic attack (TIA), and cerebral infarction without residual deficits; Z79.2 Long term (current) use of antibiotics; Z79.899 Other long term (current) drug therapy; Y83.8 Other surgical procedures as the cause of abnormal reaction of the patient, or of later complication, without mention of misadventure at the time of the procedure
CPT/HCPCS: 97606; A4456; A6021; A6212

== ENCOUNTER 2018-09-19 09:56 | Day surgery (SDC) | payer MEDICAID ==
[2018-09-19] MEDS ORDERED: LIDOcaine/PRILOcaine 5gm cream TP ONE (11:10)
== END 2018-09-19 12:30 | disposition home or self-care (01) ==
LOC: WOUND CARE 09:56
PROVIDERS: ATTEND Surgery
DX: T81.89XD Other complications of procedures, not elsewhere classified, subsequent encounter (principal); L98.492 Non-pressure chronic ulcer of skin of other sites with fat layer exposed; L97.221 Non-pressure chronic ulcer of left calf limited to breakdown of skin; L97.111 Non-pressure chronic ulcer of right thigh limited to breakdown of skin; L97.121 Non-pressure chronic ulcer of left thigh limited to breakdown of skin; L89.893 Pressure ulcer of other site, stage 3; M19.90 Unspecified osteoarthritis, unspecified site; I25.10 Atherosclerotic heart disease of native coronary artery without angina pectoris; I10 Essential (primary) hypertension; E66.9 Obesity, unspecified; F41.9 Anxiety disorder, unspecified; F32.9 Major depressive disorder, single episode, unspecified; F20.9 Schizophrenia, unspecified; F10.10 Alcohol abuse, uncomplicated; F17.200 Nicotine dependence, unspecified, uncomplicated; Z86.73 Personal history of transient ischemic attack (TIA), and cerebral infarction without residual deficits; Z79.2 Long term (current) use of antibiotics; Z79.899 Other long term (current) drug therapy; Y83.8 Other surgical procedures as the cause of abnormal reaction of the patient, or of later complication, without mention of misadventure at the time of the procedure
CPT/HCPCS: 97597; A4456

== ENCOUNTER 2018-09-24 10:38 | Day surgery (SDC) | payer MEDICAID | END 2018-09-24 12:51 | disposition home or self-care (01) | LOC: WOUND CARE 10:38 | PROVIDERS: ATTEND Surgery | DX: T81.89XD Other complications of procedures, not elsewhere classified, subsequent encounter (principal); L98.492 Non-pressure chronic ulcer of skin of other sites with fat layer exposed; L97.221 Non-pressure chronic ulcer of left calf limited to breakdown of skin; L97.111 Non-pressure chronic ulcer of right thigh limited to breakdown of skin; L97.121 Non-pressure chronic ulcer of left thigh limited to breakdown of skin; L89.893 Pressure ulcer of other site, stage 3; M19.90 Unspecified osteoarthritis, unspecified site; I25.10 Atherosclerotic heart disease of native coronary artery without angina pectoris; I10 Essential (primary) hypertension; E66.9 Obesity, unspecified; F41.9 Anxiety disorder, unspecified; F32.9 Major depressive disorder, single episode, unspecified; F20.9 Schizophrenia, unspecified; F10.10 Alcohol abuse, uncomplicated; F17.200 Nicotine dependence, unspecified, uncomplicated; Z86.73 Personal history of transient ischemic attack (TIA), and cerebral infarction without residual deficits; Z79.2 Long term (current) use of antibiotics; Z79.899 Other long term (current) drug therapy; Y83.8 Other surgical procedures as the cause of abnormal reaction of the patient, or of later complication, without mention of misadventure at the time of the procedure | CPT/HCPCS: 97597; A6021 ==

== ENCOUNTER 2018-09-26 12:10 | Emergency (ER) | payer MEDICAID ==
[~2018-09-26] VITALS: Ht 160 cm; Wt 188.0 kg
[2018-09-26 12:18] VITALS: BP 137/65
[2018-09-26] MEDS ORDERED: CLIN150C2 PO (12:42)
[2018-09-26] MEDS ORDERED: METR500T4 PO (12:42)
== END 2018-09-26 14:17 | disposition home or self-care (01) ==
LOC: ER 12:10
DX: L03.116 Cellulitis of left lower limb (principal); I10 Essential (primary) hypertension; Z79.84 Long term (current) use of oral hypoglycemic drugs; Z79.899 Other long term (current) drug therapy
CPT/HCPCS: 99284

== ENCOUNTER 2018-10-03 10:14 | Day surgery (SDC) | payer MEDICAID ==
[~2018-10-03 10:14] MED LIST changes: +CLIN150C2 PO; +METR500T4 PO
[2018-10-03] MEDS ORDERED: LIDOcaine 2% 5ml jelly MM ONE (13:25)
== END 2018-10-03 12:12 | disposition home or self-care (01) ==
LOC: WOUND CARE 10:14
PROVIDERS: ATTEND Surgery
DX: T81.89XD Other complications of procedures, not elsewhere classified, subsequent encounter (principal); L98.492 Non-pressure chronic ulcer of skin of other sites with fat layer exposed; L97.221 Non-pressure chronic ulcer of left calf limited to breakdown of skin; L97.111 Non-pressure chronic ulcer of right thigh limited to breakdown of skin; L97.121 Non-pressure chronic ulcer of left thigh limited to breakdown of skin; L89.893 Pressure ulcer of other site, stage 3; M19.90 Unspecified osteoarthritis, unspecified site; I25.10 Atherosclerotic heart disease of native coronary artery without angina pectoris; I10 Essential (primary) hypertension; E66.9 Obesity, unspecified; F41.9 Anxiety disorder, unspecified; F32.9 Major depressive disorder, single episode, unspecified; F20.9 Schizophrenia, unspecified; F10.10 Alcohol abuse, uncomplicated; F17.200 Nicotine dependence, unspecified, uncomplicated; Z86.73 Personal history of transient ischemic attack (TIA), and cerebral infarction without residual deficits; Z79.2 Long term (current) use of antibiotics; Z79.899 Other long term (current) drug therapy; Y83.8 Other surgical procedures as the cause of abnormal reaction of the patient, or of later complication, without mention of misadventure at the time of the procedure
CPT/HCPCS: 97597; A6266

== ENCOUNTER 2018-10-13 10:10 | Outpatient (CLI) | payer MEDICAID ==
[~2018-10-13 10:10] MED LIST changes: -METR500T4 PO
== END 2018-10-13 11:55 | disposition home or self-care (01) ==
LOC: WOUND CARE 10:10 → EDSTATUS 10:30 → WOUND CARE 11:55
PROVIDERS: ATTEND Surgery
DX: T81.89XD Other complications of procedures, not elsewhere classified, subsequent encounter (principal); L98.492 Non-pressure chronic ulcer of skin of other sites with fat layer exposed; L97.221 Non-pressure chronic ulcer of left calf limited to breakdown of skin; L97.121 Non-pressure chronic ulcer of left thigh limited to breakdown of skin; L89.893 Pressure ulcer of other site, stage 3; M19.90 Unspecified osteoarthritis, unspecified site; I25.10 Atherosclerotic heart disease of native coronary artery without angina pectoris; I10 Essential (primary) hypertension; E66.9 Obesity, unspecified; F41.9 Anxiety disorder, unspecified; F32.9 Major depressive disorder, single episode, unspecified; F20.9 Schizophrenia, unspecified; F10.10 Alcohol abuse, uncomplicated; F17.200 Nicotine dependence, unspecified, uncomplicated; Z86.73 Personal history of transient ischemic attack (TIA), and cerebral infarction without residual deficits; Z79.2 Long term (current) use of antibiotics; Z79.899 Other long term (current) drug therapy; Y83.8 Other surgical procedures as the cause of abnormal reaction of the patient, or of later complication, without mention of misadventure at the time of the procedure
CPT/HCPCS: 97606; A6266

== ENCOUNTER 2018-10-24 10:50 | Day surgery (SDC) | payer MEDICAID ==
[2018-10-24] MEDS ORDERED: LIDOcaine 2% 5ml jelly MM ONE (13:40)
== END 2018-10-24 12:24 | disposition home or self-care (01) ==
LOC: WOUND CARE 10:50
PROVIDERS: ATTEND Surgery
DX: T81.89XD Other complications of procedures, not elsewhere classified, subsequent encounter (principal); L98.492 Non-pressure chronic ulcer of skin of other sites with fat layer exposed; L97.221 Non-pressure chronic ulcer of left calf limited to breakdown of skin; L97.121 Non-pressure chronic ulcer of left thigh limited to breakdown of skin; L89.893 Pressure ulcer of other site, stage 3; M19.90 Unspecified osteoarthritis, unspecified site; I25.10 Atherosclerotic heart disease of native coronary artery without angina pectoris; I10 Essential (primary) hypertension; E66.9 Obesity, unspecified; F41.9 Anxiety disorder, unspecified; F32.9 Major depressive disorder, single episode, unspecified; F20.9 Schizophrenia, unspecified; F10.10 Alcohol abuse, uncomplicated; F17.200 Nicotine dependence, unspecified, uncomplicated; Z86.73 Personal history of transient ischemic attack (TIA), and cerebral infarction without residual deficits; Z79.2 Long term (current) use of antibiotics; Z79.899 Other long term (current) drug therapy; Y83.8 Other surgical procedures as the cause of abnormal reaction of the patient, or of later complication, without mention of misadventure at the time of the procedure
CPT/HCPCS: 97597; A6266

== ENCOUNTER 2018-11-07 10:20 | Day surgery (SDC) | payer MEDICAID ==
[~2018-11-07 10:20] MED LIST changes: -CLIN150C2 PO
[2018-11-07] MEDS ORDERED: LIDOcaine/PRILOcaine 5gm cream TP ONE (11:06)
--- NOTE | 2018-11-07 12:00 | NUR ---
Patient ambulated with walker from [facility] and was admitted to outpatient wound care for physician visit with Eric Mccord MD. Dressing removed, wound cleansed. Patient assessed for changes in conditions, medications and medical history. 1110 - Dr. Mccord at bedside accompanied by RN. Wound assessed, time out performed by MD/RN. Wound debrided as detailed in the physician progress/procedure note. Plan of care discussed with patient. Dressings placed per MD orders. Pt instructed that they should not be disconnected from suction for more than 2 hours at a time. If they are not able to get the suction back on they need to remove the dressing and take all of the foam out of the wound, place hydrogel gauze on/in the wound, and change the dressing daily until someone can replace the dressing. Pt instructed to call the Wound Center or their Home Health Agency immediately if they notice a change in the color or amount of the fluid in the canister, their wound looks more red than usual or has a foul smell, the skin around their wound looks reddened or irritated, the dressing feels or appears loose, they experience pain or the alarm will not turn off. Pt instructed to call 911 or go to the ED if their canister fills rapidly with blood. Patient instructed on the signs and symptoms of infection and to call the Wound Center if any occur or to go to the ED if we are closed: Increased pain in wound Increase in drainage from the wound Redness in the skin surrounding the wound Bleeding from the wound Temperature of 101 or greater Patient instructed that the weight of their body puts a large amount of pressure on their wounds. This pressure keeps the new tissue from growing and inhibits new blood vessels from forming. Explained that, if they continue to bear weight on a body part that has a wound, the time it takes to heal the wound increases, the wound may get worse or the wound may not heal at all. Patient verbalized understanding of all discharge instructions and plan of care and ambulated with walker out to [facility] in stable condition with no sign or symptom of distress at time of discharge.
== END 2018-11-07 12:10 | disposition home or self-care (01) ==
LOC: WOUND CARE 10:20
PROVIDERS: ATTEND Surgery
DX: T81.89XD Other complications of procedures, not elsewhere classified, subsequent encounter (principal); L98.492 Non-pressure chronic ulcer of skin of other sites with fat layer exposed; L97.221 Non-pressure chronic ulcer of left calf limited to breakdown of skin; L97.121 Non-pressure chronic ulcer of left thigh limited to breakdown of skin; L89.893 Pressure ulcer of other site, stage 3; M19.90 Unspecified osteoarthritis, unspecified site; I25.10 Atherosclerotic heart disease of native coronary artery without angina pectoris; I10 Essential (primary) hypertension; E66.9 Obesity, unspecified; F41.9 Anxiety disorder, unspecified; F32.9 Major depressive disorder, single episode, unspecified; F20.9 Schizophrenia, unspecified; F10.10 Alcohol abuse, uncomplicated; F17.200 Nicotine dependence, unspecified, uncomplicated; Z86.73 Personal history of transient ischemic attack (TIA), and cerebral infarction without residual deficits; Z79.2 Long term (current) use of antibiotics; Z79.899 Other long term (current) drug therapy; Z79.84 Long term (current) use of oral hypoglycemic drugs; Y83.8 Other surgical procedures as the cause of abnormal reaction of the patient, or of later complication, without mention of misadventure at the time of the procedure
CPT/HCPCS: 87070; 87075; 87077; 87102; 87186; 97597; A6266; A4456

== ENCOUNTER 2018-11-14 10:15 | Outpatient (CLI) | payer MEDICAID ==
[~2018-11-14 10:15] MED LIST changes: +GABA600T13 PO; -GABA600T2 PO
--- NOTE | 2018-11-14 14:44 | NUR ---
Patient ambulated independently from [facility] and was admitted to outpatient wound care for physician visit. Dressings and wound vac removed, wound cleansed. Patient assessed for changes in conditions, medications and medical history. Dr. Mccord at bedside accompanied by RN. Wound assessed and no debridement was done. Plan of care discussed with patient. Dressings placed per MD orders. Patient instructed on the signs and symptoms of infection and to call the Wound Center if any occur or to go to the ED if we are closed: Increased pain in wound Increase in drainage from the wound Redness in the skin surrounding the wound Bleeding from the wound Temperature of 101 or greater Pt instructed that they should not be disconnected from suction for more than 2 hours at a time. If they are not able to get the suction back on they need to remove the dressing and take all of the foam out of the wound, place hydrogel gauze on/in the wound, and change the dressing daily until someone can replace the dressing. Pt instructed to call the Wound Center or their Home Health Agency immediately if they notice a change in the color or amount of the fluid in the canister, their wound looks more red than usual or has a foul smell, the skin around their wound looks reddened or irritated, the dressing feels or appears loose, they experience pain or the alarm will not turn off. Pt instructed to call 911 or go to the ED if their canister fills rapidly with blood. Patient verbalized understanding of all discharge instructions and plan of care and ambulated independently out to [facility] in stable condition with no sign or symptom of distress at time of discharge Addendum: 11/14/18 at 1450 by Brooklynn Anderson RN Amended: Links added.
== END 2018-11-14 12:44 | disposition home or self-care (01) ==
LOC: WOUND CARE 10:15 → EDSTATUS 10:30 → WOUND CARE 12:44
PROVIDERS: ATTEND Surgery
DX: T81.89XD Other complications of procedures, not elsewhere classified, subsequent encounter (principal); L98.492 Non-pressure chronic ulcer of skin of other sites with fat layer exposed; L97.221 Non-pressure chronic ulcer of left calf limited to breakdown of skin; L89.893 Pressure ulcer of other site, stage 3; M19.90 Unspecified osteoarthritis, unspecified site; I25.10 Atherosclerotic heart disease of native coronary artery without angina pectoris; I10 Essential (primary) hypertension; E66.9 Obesity, unspecified; F41.9 Anxiety disorder, unspecified; F32.9 Major depressive disorder, single episode, unspecified; F20.9 Schizophrenia, unspecified; F10.10 Alcohol abuse, uncomplicated; F17.200 Nicotine dependence, unspecified, uncomplicated; Z86.73 Personal history of transient ischemic attack (TIA), and cerebral infarction without residual deficits; Z79.2 Long term (current) use of antibiotics; Z79.899 Other long term (current) drug therapy; Z79.84 Long term (current) use of oral hypoglycemic drugs; Y83.8 Other surgical procedures as the cause of abnormal reaction of the patient, or of later complication, without mention of misadventure at the time of the procedure
CPT/HCPCS: 97606; A6266; A4456

== ENCOUNTER 2018-11-21 10:48 | Day surgery (SDC) | payer MEDICAID ==
[2018-11-21] MEDS ORDERED: LIDOcaine 2% 5ml jelly ONE ×2 (11:22→11:23)
--- NOTE | 2018-11-21 13:22 | NUR ---
Patient ambulated independently from [facility] and was admitted to outpatient wound care for physician visit. Dressings and wound vac removed, wound cleansed and lidocaine applied per order. Patient assessed for changes in conditions, medications and medical history. Dr. Mccord at bedside accompanied by RN. Wound assessed, time out performed by MD/RN. Wound debrided as detailed in the physician progress/procedure note. Plan of care discussed with patient. Dressings and wound vac placed per MD orders. Patient instructed on the signs and symptoms of infection and to call the Wound Center if any occur or to go to the ED if we are closed: Increased pain in wound Increase in drainage from the wound Redness in the skin surrounding the wound Bleeding from the wound Temperature of 101 or greater Pt instructed that they should not be disconnected from suction for more than 2 hours at a time. If they are not able to get the suction back on they need to remove the dressing and take all of the foam out of the wound, place hydrogel gauze on/in the wound, and change the dressing daily until someone can replace the dressing. Pt instructed to call the Wound Center or their Home Health Agency immediately if they notice a change in the color or amount of the fluid in the canister, their wound looks more red than usual or has a foul smell, the skin around their wound looks reddened or irritated, the dressing feels or appears loose, they experience pain or the alarm will not turn off. Pt instructed to call 911 or go to the ED if their canister fills rapidly with blood. Patient verbalized understanding of all discharge instructions and plan of care and ambulated independently out to [facility] in stable condition with no sign or symptom of distress at time of discharge. Addendum: 11/21/18 at 1324 by Brooklynn Anderson RN Amended: Links added.
== END 2018-11-21 13:27 | disposition home or self-care (01) ==
LOC: WOUND CARE 10:48
PROVIDERS: ATTEND Surgery
DX: T81.89XD Other complications of procedures, not elsewhere classified, subsequent encounter (principal); L98.492 Non-pressure chronic ulcer of skin of other sites with fat layer exposed; L97.221 Non-pressure chronic ulcer of left calf limited to breakdown of skin; L89.893 Pressure ulcer of other site, stage 3; M19.90 Unspecified osteoarthritis, unspecified site; I25.10 Atherosclerotic heart disease of native coronary artery without angina pectoris; I10 Essential (primary) hypertension; E66.9 Obesity, unspecified; F41.9 Anxiety disorder, unspecified; F32.9 Major depressive disorder, single episode, unspecified; F20.9 Schizophrenia, unspecified; F10.10 Alcohol abuse, uncomplicated; F17.200 Nicotine dependence, unspecified, uncomplicated; Z86.73 Personal history of transient ischemic attack (TIA), and cerebral infarction without residual deficits; Z79.2 Long term (current) use of antibiotics; Z79.899 Other long term (current) drug therapy; Z79.84 Long term (current) use of oral hypoglycemic drugs; Y83.8 Other surgical procedures as the cause of abnormal reaction of the patient, or of later complication, without mention of misadventure at the time of the procedure
CPT/HCPCS: 97597; 97605; A6266

== ENCOUNTER 2018-11-28 10:20 | Day surgery (SDC) | payer MEDICAID ==
[2018-11-28] MEDS ORDERED: LIDOcaine 2% 5ml jelly ONE (10:52)
--- NOTE | 2018-11-28 12:36 | NUR ---
Patient ambulated with walker from [facility] and was admitted to outpatient wound care for physician visit with Eric Mccord MD. Dressing removed, wound cleansed and lidocaine applied per order. Patient assessed for changes in conditions, medications and medical history. 1105 - Dr. Mccord at bedside accompanied by RN. Wound assessed, time out performed by MD/RN. Wound debrided as detailed in the physician progress/procedure note. Plan of care discussed with patient. Dressings placed per MD orders. Pt instructed that they should not be disconnected from suction for more than 2 hours at a time. If they are not able to get the suction back on they need to remove the dressing and take all of the foam out of the wound, place hydrogel gauze on/in the wound, and change the dressing daily until someone can replace the dressing. Pt instructed to call the Wound Center or their Home Health Agency immediately if they notice a change in the color or amount of the fluid in the canister, their wound looks more red than usual or has a foul smell, the skin around their wound looks reddened or irritated, the dressing feels or appears loose, they experience pain or the alarm will not turn off. Pt instructed to call 911 or go to the ED if their canister fills rapidly with blood. Patient instructed on the signs and symptoms of infection and to call the Wound Center if any occur or to go to the ED if we are closed: Increased pain in wound Increase in drainage from the wound Redness in the skin surrounding the wound Bleeding from the wound Temperature of 101 or greater Patient instructed that the weight of their body puts a large amount of pressure on their wounds. This pressure keeps the new tissue from growing and inhibits new blood vessels from forming. Explained that, if they continue to bear weight on a body part that has a wound, the time it takes to heal the wound increases, the wound may get worse or the wound may not heal at all. Patient verbalized understanding of all discharge instructions and plan of care and ambulated with walker out to [facility] in stable condition with no sign or symptom of distress at time of discharge.
== END 2018-11-28 12:00 | disposition home or self-care (01) ==
LOC: WOUND CARE 10:20
PROVIDERS: ATTEND Surgery
DX: T81.89XD Other complications of procedures, not elsewhere classified, subsequent encounter (principal); L98.492 Non-pressure chronic ulcer of skin of other sites with fat layer exposed; L97.221 Non-pressure chronic ulcer of left calf limited to breakdown of skin; L89.893 Pressure ulcer of other site, stage 3; M19.90 Unspecified osteoarthritis, unspecified site; I25.10 Atherosclerotic heart disease of native coronary artery without angina pectoris; I10 Essential (primary) hypertension; E66.9 Obesity, unspecified; F41.9 Anxiety disorder, unspecified; F32.9 Major depressive disorder, single episode, unspecified; F20.9 Schizophrenia, unspecified; F10.10 Alcohol abuse, uncomplicated; F17.200 Nicotine dependence, unspecified, uncomplicated; Z86.73 Personal history of transient ischemic attack (TIA), and cerebral infarction without residual deficits; Z79.2 Long term (current) use of antibiotics; Z79.899 Other long term (current) drug therapy; Z79.84 Long term (current) use of oral hypoglycemic drugs; Y83.8 Other surgical procedures as the cause of abnormal reaction of the patient, or of later complication, without mention of misadventure at the time of the procedure
CPT/HCPCS: 97597; A6266; A4456

== ENCOUNTER 2018-12-12 10:00 | Day surgery (SDC) | payer MEDICAID ==
[2018-12-12] MEDS ORDERED: LIDOcaine 2% 5ml jelly ONE (11:22)
--- NOTE | 2018-12-12 13:00 | NUR ---
Patient ambulated with walker from [facility] and was admitted to outpatient wound care for physician visit with Eric Mccord MD. Dressing removed, wound cleansed and lidocaine applied per order. Patient assessed for changes in conditions, medications and medical history. 1130 - Dr. Mccord at bedside accompanied by RN. Wound assessed, time out performed by MD/RN. Wound debrided as detailed in the physician progress/procedure note. Plan of care discussed with patient. Dressings placed per MD orders. Pt instructed that they should not be disconnected from suction for more than 2 hours at a time. If they are not able to get the suction back on they need to remove the dressing and take all of the foam out of the wound, place hydrogel gauze on/in the wound, and change the dressing daily until someone can replace the dressing. Pt instructed to call the Wound Center or their Home Health Agency immediately if they notice a change in the color or amount of the fluid in the canister, their wound looks more red than usual or has a foul smell, the skin around their wound looks reddened or irritated, the dressing feels or appears loose, they experience pain or the alarm will not turn off. Pt instructed to call 911 or go to the ED if their canister fills rapidly with blood. Patient instructed on the signs and symptoms of infection and to call the Wound Center if any occur or to go to the ED if we are closed: Increased pain in wound Increase in drainage from the wound Redness in the skin surrounding the wound Bleeding from the wound Temperature of 101 or greater Patient instructed that the weight of their body puts a large amount of pressure on their wounds. This pressure keeps the new tissue from growing and inhibits new blood vessels from forming. Explained that, if they continue to bear weight on a body part that has a wound, the time it takes to heal the wound increases, the wound may get worse or the wound may not heal at all. Patient verbalized understanding of all discharge instructions and plan of care and ambulated with walker out to [facility] in stable condition with no sign or symptom of distress at time of discharge. Alyson STEPHENS at [facility] called with update in patient condition; orders faxed.
== END 2018-12-12 12:40 | disposition home or self-care (01) ==
LOC: WOUND CARE 10:00
PROVIDERS: ATTEND Surgery
DX: T81.89XD Other complications of procedures, not elsewhere classified, subsequent encounter (principal); L98.492 Non-pressure chronic ulcer of skin of other sites with fat layer exposed; L97.221 Non-pressure chronic ulcer of left calf limited to breakdown of skin; L89.893 Pressure ulcer of other site, stage 3; M19.90 Unspecified osteoarthritis, unspecified site; I25.10 Atherosclerotic heart disease of native coronary artery without angina pectoris; I10 Essential (primary) hypertension; E66.9 Obesity, unspecified; F41.9 Anxiety disorder, unspecified; F32.9 Major depressive disorder, single episode, unspecified; F20.9 Schizophrenia, unspecified; F10.10 Alcohol abuse, uncomplicated; F17.200 Nicotine dependence, unspecified, uncomplicated; Z86.73 Personal history of transient ischemic attack (TIA), and cerebral infarction without residual deficits; Z79.2 Long term (current) use of antibiotics; Z79.899 Other long term (current) drug therapy; Z79.84 Long term (current) use of oral hypoglycemic drugs; Y83.8 Other surgical procedures as the cause of abnormal reaction of the patient, or of later complication, without mention of misadventure at the time of the procedure
CPT/HCPCS: 97597; A6266; A6021; A6212

== ENCOUNTER 2018-12-22 10:23 | Day surgery (SDC) | payer MEDICAID ==
[2018-12-22] MEDS ORDERED: LIDOcaine/PRILOcaine 5gm cream TP ONE (11:35)
--- NOTE | 2018-12-22 15:35 | NUR ---
Patient ambulated independently from [facility] and was admitted to outpatient wound care for physician visit with Eric Mccord MD. Dressing removed, wound cleansed and Emla cream applied per order. Patient assessed for changes in conditions, medications and medical history. Dr. Mccord at bedside accompanied by RN. Wound assessed, time out performed by MD/RN. Wound debrided as detailed in the physician progress/procedure note. Plan of care discussed with patient. Dressings placed per MD orders. Patient instructed on the signs and symptoms of infection and to call the Wound Center if any occur or to go to the ED if we are closed: Increased pain in wound Increase in drainage from the wound Redness in the skin surrounding the wound Bleeding from the wound Temperature of 101 or greater Patient instructed that the weight of their body puts a large amount of pressure on their wounds. This pressure keeps the new tissue from growing and inhibits new blood vessels from forming. Explained that, if they continue to bear weight on a body part that has a wound, the time it takes to heal the wound increases, the wound may get worse or the wound may not heal at all. Patient verbalized understanding of all discharge instructions and plan of care and ambulated independently out to [facility] in stable condition with no sign or symptom of distress at time of discharge Addendum: 12/22/18 at 1537 by Brooklynn Anderson RN Amended: Links added.
== END 2018-12-22 12:08 | disposition home or self-care (01) ==
LOC: WOUND CARE 10:23
PROVIDERS: ATTEND Surgery
DX: T81.89XD Other complications of procedures, not elsewhere classified, subsequent encounter (principal); L98.492 Non-pressure chronic ulcer of skin of other sites with fat layer exposed; L97.221 Non-pressure chronic ulcer of left calf limited to breakdown of skin; L89.893 Pressure ulcer of other site, stage 3; M19.90 Unspecified osteoarthritis, unspecified site; I25.10 Atherosclerotic heart disease of native coronary artery without angina pectoris; I10 Essential (primary) hypertension; E66.9 Obesity, unspecified; F41.9 Anxiety disorder, unspecified; F32.9 Major depressive disorder, single episode, unspecified; F20.9 Schizophrenia, unspecified; F10.10 Alcohol abuse, uncomplicated; F17.200 Nicotine dependence, unspecified, uncomplicated; Z86.73 Personal history of transient ischemic attack (TIA), and cerebral infarction without residual deficits; Z79.2 Long term (current) use of antibiotics; Z79.899 Other long term (current) drug therapy; Z79.84 Long term (current) use of oral hypoglycemic drugs; Y83.8 Other surgical procedures as the cause of abnormal reaction of the patient, or of later complication, without mention of misadventure at the time of the procedure
CPT/HCPCS: 97597; A6243

== ENCOUNTER 2019-01-02 10:13 | Day surgery (SDC) | payer MEDICAID ==
[2019-01-02] MEDS ORDERED: LIDOcaine/PRILOcaine 5gm cream TP ONE (11:05)
== END 2019-01-02 11:57 | disposition home or self-care (01) ==
LOC: WOUND CARE 10:13
PROVIDERS: ATTEND Surgery
DX: T81.89XD Other complications of procedures, not elsewhere classified, subsequent encounter (principal); L98.492 Non-pressure chronic ulcer of skin of other sites with fat layer exposed; L97.221 Non-pressure chronic ulcer of left calf limited to breakdown of skin; L89.893 Pressure ulcer of other site, stage 3; M19.90 Unspecified osteoarthritis, unspecified site; I25.10 Atherosclerotic heart disease of native coronary artery without angina pectoris; I10 Essential (primary) hypertension; E66.9 Obesity, unspecified; F41.9 Anxiety disorder, unspecified; F32.9 Major depressive disorder, single episode, unspecified; F20.9 Schizophrenia, unspecified; F10.10 Alcohol abuse, uncomplicated; F17.200 Nicotine dependence, unspecified, uncomplicated; Z86.73 Personal history of transient ischemic attack (TIA), and cerebral infarction without residual deficits; Z79.2 Long term (current) use of antibiotics; Z79.899 Other long term (current) drug therapy; Z79.84 Long term (current) use of oral hypoglycemic drugs; Y83.8 Other surgical procedures as the cause of abnormal reaction of the patient, or of later complication, without mention of misadventure at the time of the procedure
CPT/HCPCS: 97597; A6266; A6021; A6206; A6243

== ENCOUNTER 2019-01-16 10:31 | Day surgery (SDC) | payer MEDICAID ==
[2019-01-16] MEDS ORDERED: LIDOcaine/PRILOcaine 5gm cream TP ONE (11:15)
--- NOTE | 2019-01-16 13:23 | NUR ---
Patient ambulated independently with a walker and was admitted to outpatient wound care for physician visit with Eric Mccord MD. Dressing removed, wound cleansed and lidocaine applied per order. Patient assessed for changes in conditions, medications and medical history. Dr. Mccord at bedside accompanied by RN. Wound assessed, time out performed by MD/RN. Wound debrided as detailed in the physician progress/procedure note. Plan of care discussed with patient. Dressings placed per MD orders. Patient instructed on the signs and symptoms of infection and to call the Wound Center if any occur or to go to the ED if we are closed: Increased pain in wound Increase in drainage from the wound Redness in the skin surrounding the wound Bleeding from the wound Temperature of 101 or greater Patient instructed that the weight of their body puts a large amount of pressure on their wounds. This pressure keeps the new tissue from growing and inhibits new blood vessels from forming. Explained that, if they continue to bear weight on a body part that has a wound, the time it takes to heal the wound increases, the wound may get worse or the wound may not heal at all. Patient verbalized understanding of all discharge instructions and plan of care and ambulated independently [facility] in stable condition with no sign or symptom of distress at time of discharge. Addendum: 01/16/19 at 1324 by Brooklynn Anderson RN Amended: Links added.
== END 2019-01-16 11:55 | disposition home or self-care (01) ==
LOC: WOUND CARE 10:31
PROVIDERS: ATTEND Surgery
DX: T81.89XD Other complications of procedures, not elsewhere classified, subsequent encounter (principal); L98.492 Non-pressure chronic ulcer of skin of other sites with fat layer exposed; L97.221 Non-pressure chronic ulcer of left calf limited to breakdown of skin; L89.893 Pressure ulcer of other site, stage 3; M19.90 Unspecified osteoarthritis, unspecified site; I25.10 Atherosclerotic heart disease of native coronary artery without angina pectoris; I10 Essential (primary) hypertension; E66.9 Obesity, unspecified; F41.9 Anxiety disorder, unspecified; F32.9 Major depressive disorder, single episode, unspecified; F20.9 Schizophrenia, unspecified; F10.10 Alcohol abuse, uncomplicated; F17.200 Nicotine dependence, unspecified, uncomplicated; Z86.73 Personal history of transient ischemic attack (TIA), and cerebral infarction without residual deficits; Z79.2 Long term (current) use of antibiotics; Z79.899 Other long term (current) drug therapy; Z79.84 Long term (current) use of oral hypoglycemic drugs; Y83.8 Other surgical procedures as the cause of abnormal reaction of the patient, or of later complication, without mention of misadventure at the time of the procedure
CPT/HCPCS: 97597; A6266; A6212; A6243

== ENCOUNTER 2019-01-30 10:07 | Day surgery (SDC) | payer MEDICAID ==
[2019-01-30] MEDS ORDERED: LIDOcaine/PRILOcaine 5gm cream TP ONE (11:09)
[2019-01-30] MEDS ORDERED: cadexomer iodine 40gm GEL.GM TP ONE (11:29)
[2019-01-30] MEDS ORDERED: [UNRECOGNIZED DRUG - OTHER] TOP (14:24)
--- NOTE | 2019-01-30 14:24 | NUR ---
1030 Patient ambulated safely into [facility]. Patient admitted to outpatient wound care clinic for follow-up visit with physician. Patient placed in isolation per isolation protocol. Dressing removed, wound cleansed. Patient assessed for changes in conditions, medications and medical history. Patient showed no s/s of distress at time of assessment. 1120 at bedside accompanied by RN. Wounds assessed, time out performed and debridement done today as detailed in the physician progress/procedure note. Plan of care discussed with patient. Dressings placed per MD orders. Patient instructed on the signs and symptoms of infection and to call the Wound Center if any occur or to go to the ED if we are closed: Increased pain in wound Increase in drainage from the wound Redness in the skin surrounding the wound Bleeding from the wound Temperature of 101 or greater Patient instructed that the weight of their body puts a large amount of pressure on their wounds. This pressure keeps the new tissue from growing and inhibits new blood vessels from forming. Explained that, if they continue to bear weight on a body part that has a wound, the time it takes to heal the wound increases, the wound may get worse or the wound may not heal at all. Patient verbalized understanding of all discharge instructions and plan of care. Patient ambulated independently out to [facility] and is in stable condition with no sign or symptom of distress at time of discharge.
== END 2019-01-30 12:10 | disposition home or self-care (01) ==
LOC: WOUND CARE 10:07
PROVIDERS: ATTEND Surgery
DX: T81.89XD Other complications of procedures, not elsewhere classified, subsequent encounter (principal); L98.492 Non-pressure chronic ulcer of skin of other sites with fat layer exposed; L97.221 Non-pressure chronic ulcer of left calf limited to breakdown of skin; L89.893 Pressure ulcer of other site, stage 3; M19.90 Unspecified osteoarthritis, unspecified site; I25.10 Atherosclerotic heart disease of native coronary artery without angina pectoris; I10 Essential (primary) hypertension; E66.9 Obesity, unspecified; F41.9 Anxiety disorder, unspecified; F32.9 Major depressive disorder, single episode, unspecified; F20.9 Schizophrenia, unspecified; F10.10 Alcohol abuse, uncomplicated; F17.200 Nicotine dependence, unspecified, uncomplicated; Z86.73 Personal history of transient ischemic attack (TIA), and cerebral infarction without residual deficits; Z79.2 Long term (current) use of antibiotics; Z79.899 Other long term (current) drug therapy; Z79.84 Long term (current) use of oral hypoglycemic drugs; Y83.8 Other surgical procedures as the cause of abnormal reaction of the patient, or of later complication, without mention of misadventure at the time of the procedure
CPT/HCPCS: 97597; A6266; A6021; A6206; A6212; A6243

== ENCOUNTER 2019-02-12 10:07 | Day surgery (SDC) | payer MEDICAID ==
[~2019-02-12 10:07] MED LIST changes: -COLL30OI TP; +[UNRECOGNIZED DRUG - OTHER] TOP
[2019-02-12] MEDS ORDERED: LIDOcaine/PRILOcaine 5gm cream TP ONE (11:50)
[2019-02-12] MEDS ORDERED: LIDOcaine 1%/PF 5ML 10 MG/ML VIAL ONE ×2 (12:41→12:50)
[2019-02-12] MEDS ORDERED: silver sulfadiazine cream 50gm TP ONE (13:32)
--- NOTE | 2019-02-12 14:56 | NUR ---
1030 [facility]. Patient admitted to outpatient wound care clinic for follow-up visit with physician. Patient placed in isolation per isolation protocol. Dressing removed, wound cleansed. Patient assessed for changes in conditions, medications and medical history. Patient showed no s/s of distress at time of assessment. 1230 at bedside accompanied by RN. Wounds assessed, time out performed and I&D of the left abdominal wound done as detailed in the physician progress/procedure note. Procedure tolerated well with mnimal bleeding. Plan of care discussed with patient. 1 continuous strip of Iodoform packing placed MD. Dressings place per MD orders. Patient to return on Saturday for follow-up with Dr Mccord. Patient instructed on the signs and symptoms of infection and to call the Wound Center if any occur or to go to the ED if we are closed: Increased pain in wound Increase in drainage from the wound Redness in the skin surrounding the wound Bleeding from the wound Temperature of 101 or greater Patient instructed that the weight of their body puts a large amount of pressure on their wounds. This pressure keeps the new tissue from growing and inhibits new blood vessels from forming. Explained that, if they continue to bear weight on a body part that has a wound, the time it takes to heal the wound increases, the wound may get worse or the wound may not heal at all. Patient verbalized understanding of all discharge instructions and plan of care. Patient ambulated independently out to [facility] and is in stable condition with no sign or symptom of distress at time of discharge.
== END 2019-02-12 13:57 | disposition home or self-care (01) ==
LOC: WOUND CARE 10:07
PROVIDERS: ATTEND Surgery
DX: T81.89XD Other complications of procedures, not elsewhere classified, subsequent encounter (principal); L98.492 Non-pressure chronic ulcer of skin of other sites with fat layer exposed; L97.221 Non-pressure chronic ulcer of left calf limited to breakdown of skin; L89.893 Pressure ulcer of other site, stage 3; M19.90 Unspecified osteoarthritis, unspecified site; I25.10 Atherosclerotic heart disease of native coronary artery without angina pectoris; I10 Essential (primary) hypertension; E66.9 Obesity, unspecified; F41.9 Anxiety disorder, unspecified; F32.9 Major depressive disorder, single episode, unspecified; F20.9 Schizophrenia, unspecified; F10.10 Alcohol abuse, uncomplicated; F17.200 Nicotine dependence, unspecified, uncomplicated; Z86.73 Personal history of transient ischemic attack (TIA), and cerebral infarction without residual deficits; Z79.2 Long term (current) use of antibiotics; Z79.899 Other long term (current) drug therapy; Z79.84 Long term (current) use of oral hypoglycemic drugs; Y83.8 Other surgical procedures as the cause of abnormal reaction of the patient, or of later complication, without mention of misadventure at the time of the procedure
CPT/HCPCS: 10180; A6223; A6449; J2001; A6021; A6206; A6243

== ENCOUNTER 2019-02-16 10:27 | Outpatient (CLI) | payer MEDICAID ==
[2019-02-16] MEDS ORDERED: silver sulfadiazine cream 50gm TP ONE (13:01)
[2019-02-16] MEDS ORDERED: cadexomer iodine 40gm GEL.GM TP ONE (13:01)
--- NOTE | 2019-02-16 13:15 | NUR ---
Patient ambulated with walker from [facility] and was admitted to outpatient wound care for physician visit with Eric Mccord MD. Placed in contact isolation precautions per hospital policy. Dressing removed, wound cleansed. Patient assessed for changes in conditions, medications and medical history. 1225 - Dr. Mccord at bedside accompanied by RN. Wound assessed by MD, orders written. Plan of care discussed with patient. Dressings placed per MD orders. Patient instructed on the signs and symptoms of infection and to call the Wound Center if any occur or to go to the ED if we are closed: Increased pain in wound Increase in drainage from the wound Redness in the skin surrounding the wound Bleeding from the wound Temperature of 101 or greater Patient instructed that the weight of their body puts a large amount of pressure on their wounds. This pressure keeps the new tissue from growing and inhibits new blood vessels from forming. Explained that, if they continue to bear weight on a body part that has a wound, the time it takes to heal the wound increases, the wound may get worse or the wound may not heal at all. Patient verbalized understanding of all discharge instructions and plan of care and ambulated with walker out to [facility] in stable condition with no sign or symptom of distress at time of discharge.
== END 2019-02-16 13:36 | disposition home or self-care (01) ==
LOC: WOUND CARE 10:27 → EDSTATUS 10:30 → WOUND CARE 13:36
PROVIDERS: ATTEND Surgery
DX: T81.89XD Other complications of procedures, not elsewhere classified, subsequent encounter (principal); L98.492 Non-pressure chronic ulcer of skin of other sites with fat layer exposed; L97.221 Non-pressure chronic ulcer of left calf limited to breakdown of skin; L89.893 Pressure ulcer of other site, stage 3; M19.90 Unspecified osteoarthritis, unspecified site; I25.10 Atherosclerotic heart disease of native coronary artery without angina pectoris; I10 Essential (primary) hypertension; E66.9 Obesity, unspecified; F41.9 Anxiety disorder, unspecified; F32.9 Major depressive disorder, single episode, unspecified; F20.9 Schizophrenia, unspecified; F10.10 Alcohol abuse, uncomplicated; F17.200 Nicotine dependence, unspecified, uncomplicated; Z86.73 Personal history of transient ischemic attack (TIA), and cerebral infarction without residual deficits; Z79.2 Long term (current) use of antibiotics; Z79.899 Other long term (current) drug therapy; Z79.84 Long term (current) use of oral hypoglycemic drugs; Y83.8 Other surgical procedures as the cause of abnormal reaction of the patient, or of later complication, without mention of misadventure at the time of the procedure
CPT/HCPCS: A6223; G0463; A6021; A6243

== ENCOUNTER 2019-02-27 10:30 | Outpatient (CLI) | payer MEDICAID ==
[2019-02-27] MEDS ORDERED: LIDOcaine/PRILOcaine 5gm cream TP ONE (11:28)
--- NOTE | 2019-02-27 12:58 | NUR ---
Patient ambulated independently from [facility] with a walker. Patient admitted to outpatient wound care for physician visit with Eric Mccord MD. Dressings and wound vac removed, wound cleansed and lidocaine applied per order. Patient assessed for changes in conditions, medications and medical history. Dr. Mccord at bedside accompanied by RN. Wound assessed and no debridement was done. Plan of care discussed with patient. Dressings and wound vac reapplied. Patient instructed on the signs and symptoms of infection and to call the Wound Center if any occur or to go to the ED if we are closed: Increased pain in wound Increase in drainage from the wound Redness in the skin surrounding the wound Bleeding from the wound Temperature of 101 or greater Pt instructed that they should not be disconnected from suction for more than 2 hours at a time. If they are not able to get the suction back on they need to remove the dressing and take all of the foam out of the wound, place hydrogel gauze on/in the wound, and change the dressing daily until someone can replace the dressing. Pt instructed to call the Wound Center or their Home Health Agency immediately if they notice a change in the color or amount of the fluid in the canister, their wound looks more red than usual or has a foul smell, the skin around their wound looks reddened or irritated, the dressing feels or appears loose, they experience pain or the alarm will not turn off. Pt instructed to call 911 or go to the ED if their canister fills rapidly with blood. Patient instructed that the weight of their body puts a large amount of pressure on their wounds. This pressure keeps the new tissue from growing and inhibits new blood vessels from forming. Explained that, if they continue to bear weight on a body part that has a wound, the time it takes to heal the wound increases, the wound may get worse or the wound may not heal at all. Patient verbalized understanding of all discharge instructions and plan of care and ambulated independently out to [facility] in stable condition with no sign or symptom of distress at time of discharge. Addendum: 02/27/19 at 1301 by Brooklynn Anderson RN Amended: Links added.
== END 2019-02-27 12:45 | disposition home or self-care (01) ==
LOC: WOUND CARE 10:30 → EDSTATUS 10:30 → WOUND CARE 12:45
PROVIDERS: ATTEND Surgery
DX: T81.89XD Other complications of procedures, not elsewhere classified, subsequent encounter (principal); L98.492 Non-pressure chronic ulcer of skin of other sites with fat layer exposed; L97.221 Non-pressure chronic ulcer of left calf limited to breakdown of skin; L89.893 Pressure ulcer of other site, stage 3; M19.90 Unspecified osteoarthritis, unspecified site; I25.10 Atherosclerotic heart disease of native coronary artery without angina pectoris; I10 Essential (primary) hypertension; E66.9 Obesity, unspecified; F41.9 Anxiety disorder, unspecified; F32.9 Major depressive disorder, single episode, unspecified; F20.9 Schizophrenia, unspecified; F10.10 Alcohol abuse, uncomplicated; F17.200 Nicotine dependence, unspecified, uncomplicated; Z86.73 Personal history of transient ischemic attack (TIA), and cerebral infarction without residual deficits; Z79.2 Long term (current) use of antibiotics; Z79.899 Other long term (current) drug therapy; Z79.84 Long term (current) use of oral hypoglycemic drugs; Y83.8 Other surgical procedures as the cause of abnormal reaction of the patient, or of later complication, without mention of misadventure at the time of the procedure
CPT/HCPCS: 97605; A6021; A6206; A6243

== ENCOUNTER 2019-03-13 10:16 | Day surgery (SDC) | payer MEDICAID ==
--- NOTE | 2019-03-13 12:30 | NUR ---
Patient ambulated with walker from [facility] and was admitted to outpatient wound care for physician visit with Eric Mccord MD. Dressing removed, wound cleansed and lidocaine applied per order. Patient assessed for changes in conditions, medications and medical history. 1140 - Dr. Mccrod at bedside accompanied by RN. Wound assessed, time out performed by MD/RN. Wound debrided as detailed in the physician progress/procedure note. Plan of care discussed with patient. Dressings placed per MD orders. Pt instructed that they should not be disconnected from suction for more than 2 hours at a time. If they are not able to get the suction back on they need to remove the dressing and take all of the foam out of the wound, place hydrogel gauze on/in the wound, and change the dressing daily until someone can replace the dressing. Pt instructed to call the Wound Center or their Home Health Agency immediately if they notice a change in the color or amount of the fluid in the canister, their wound looks more red than usual or has a foul smell, the skin around their wound looks reddened or irritated, the dressing feels or appears loose, they experience pain or the alarm will not turn off. Pt instructed to call 911 or go to the ED if their canister fills rapidly with blood. Patient instructed on the signs and symptoms of infection and to call the Wound Center if any occur or to go to the ED if we are closed: Increased pain in wound Increase in drainage from the wound Redness in the skin surrounding the wound Bleeding from the wound Temperature of 101 or greater Patient instructed that the weight of their body puts a large amount of pressure on their wounds. This pressure keeps the new tissue from growing and inhibits new blood vessels from forming. Explained that, if they continue to bear weight on a body part that has a wound, the time it takes to heal the wound increases, the wound may get worse or the wound may not heal at all. Patient verbalized understanding of all discharge instructions and plan of care and ambulated with walker out to [facility] in stable condition with no sign or symptom of distress at time of discharge.
[2019-03-13] MEDS ORDERED: ACET-3067 PO (14:38)
== END 2019-03-13 12:46 | disposition home or self-care (01) ==
LOC: WOUND CARE 10:16
PROVIDERS: ATTEND Surgery
DX: T81.89XD Other complications of procedures, not elsewhere classified, subsequent encounter (principal); L98.492 Non-pressure chronic ulcer of skin of other sites with fat layer exposed; L97.221 Non-pressure chronic ulcer of left calf limited to breakdown of skin; L89.893 Pressure ulcer of other site, stage 3; M19.90 Unspecified osteoarthritis, unspecified site; I25.10 Atherosclerotic heart disease of native coronary artery without angina pectoris; I10 Essential (primary) hypertension; E66.9 Obesity, unspecified; F41.9 Anxiety disorder, unspecified; F32.9 Major depressive disorder, single episode, unspecified; F20.9 Schizophrenia, unspecified; F10.10 Alcohol abuse, uncomplicated; F17.200 Nicotine dependence, unspecified, uncomplicated; Z86.73 Personal history of transient ischemic attack (TIA), and cerebral infarction without residual deficits; Z79.2 Long term (current) use of antibiotics; Z79.899 Other long term (current) drug therapy; Z79.84 Long term (current) use of oral hypoglycemic drugs; Y83.8 Other surgical procedures as the cause of abnormal reaction of the patient, or of later complication, without mention of misadventure at the time of the procedure
CPT/HCPCS: 97597; 97598; A6021; A6206; A6243

== ENCOUNTER 2019-03-27 10:30 | Outpatient (CLI) | payer MEDICAID ==
[~2019-03-27 10:30] MED LIST changes: +ACET-3067 PO
[2019-03-27] MEDS ORDERED: LIDOcaine/PRILOcaine 5gm cream TP ONE (11:18)
--- NOTE | 2019-03-27 14:26 | NUR ---
Patient ambulated independently from lob with a walker. Patient was admitted to outpatient wound care for physician visit with Eric Mccord MD. Dressings and wound vac removed, wounds cleansed and Emla cream applied per order. Patient assessed for changes in conditions, medications and medical history. Dr. Mccord at bedside accompanied by RN. Wounds assessed and no debridement was done. Plan of care discussed with patient. Dressings and wound vac placed per MD orders. Patient instructed on the signs and symptoms of infection and to call the Wound Center if any occur or to go to the ED if we are closed: Increased pain in wound Increase in drainage from the wound Redness in the skin surrounding the wound Bleeding from the wound Temperature of 101 or greater Pt instructed that they should not be disconnected from suction for more than 2 hours at a time. If they are not able to get the suction back on they need to remove the dressing and take all of the foam out of the wound, place hydrogel gauze on/in the wound, and change the dressing daily until someone can replace the dressing. Pt instructed to call the Wound Center or their Home Health Agency immediately if they notice a change in the color or amount of the fluid in the canister, their wound looks more red than usual or has a foul smell, the skin around their wound looks reddened or irritated, the dressing feels or appears loose, they experience pain or the alarm will not turn off. Pt instructed to call 911 or go to the ED if their canister fills rapidly with blood. Patient instructed that the weight of their body puts a large amount of pressure on their wounds. This pressure keeps the new tissue from growing and inhibits new blood vessels from forming. Explained that, if they continue to bear weight on a body part that has a wound, the time it takes to heal the wound increases, the wound may get worse or the wound may not heal at all. Patient verbalized understanding of all discharge instructions and plan of care and ambulated independently out to [facility] in stable condition with no sign or symptom of distress at time of discharge. Addendum: 03/27/19 at 1429 by Brooklynn Anderson RN Amended: Links added.
== END 2019-03-27 12:40 | disposition home or self-care (01) ==
LOC: EDSTATUS 10:30 → WOUND CARE 10:30
PROVIDERS: ATTEND Surgery
DX: T81.89XD Other complications of procedures, not elsewhere classified, subsequent encounter (principal); L98.492 Non-pressure chronic ulcer of skin of other sites with fat layer exposed; L97.221 Non-pressure chronic ulcer of left calf limited to breakdown of skin; L89.893 Pressure ulcer of other site, stage 3; M19.90 Unspecified osteoarthritis, unspecified site; I25.10 Atherosclerotic heart disease of native coronary artery without angina pectoris; I10 Essential (primary) hypertension; E66.9 Obesity, unspecified; F41.9 Anxiety disorder, unspecified; F32.9 Major depressive disorder, single episode, unspecified; F20.9 Schizophrenia, unspecified; F10.10 Alcohol abuse, uncomplicated; F17.200 Nicotine dependence, unspecified, uncomplicated; Z86.73 Personal history of transient ischemic attack (TIA), and cerebral infarction without residual deficits; Z79.2 Long term (current) use of antibiotics; Z79.899 Other long term (current) drug therapy; Z79.84 Long term (current) use of oral hypoglycemic drugs; Y83.8 Other surgical procedures as the cause of abnormal reaction of the patient, or of later complication, without mention of misadventure at the time of the procedure
CPT/HCPCS: 97605; 97606; 97608; A6021; A6196; A6206

== ENCOUNTER 2019-04-10 10:12 | Outpatient (CLI) | payer MEDICAID ==
--- NOTE | 2019-04-10 15:50 | NUR ---
Patient ambulated independently from [facility] with a walker. Patient admitted to outpatient wound care for physician visit with Eric Mccord MD. Dressings and wound vac removed, wounds cleansed and lidocaine applied per order. Patient assessed for changes in conditions, medications and medical history. Dr. Mccord at bedside accompanied by RN. Wound assessed and no debridement was done. Plan of care discussed with patient. Dressings and wound vac placed per MD orders. Patient instructed on the signs and symptoms of infection and to call the Wound Center if any occur or to go to the ED if we are closed: Increased pain in wound Increase in drainage from the wound Redness in the skin surrounding the wound Bleeding from the wound Temperature of 101 or greater Pt instructed that they should not be disconnected from suction for more than 2 hours at a time. If they are not able to get the suction back on they need to remove the dressing and take all of the foam out of the wound, place hydrogel gauze on/in the wound, and change the dressing daily until someone can replace the dressing. Pt instructed to call the Wound Center or their Home Health Agency immediately if they notice a change in the color or amount of the fluid in the canister, their wound looks more red than usual or has a foul smell, the skin around their wound looks reddened or irritated, the dressing feels or appears loose, they experience pain or the alarm will not turn off. Pt instructed to call 911 or go to the ED if their canister fills rapidly with blood. Patient instructed that the weight of their body puts a large amount of pressure on their wounds. This pressure keeps the new tissue from growing and inhibits new blood vessels from forming. Explained that, if they continue to bear weight on a body part that has a wound, the time it takes to heal the wound increases, the wound may get worse or the wound may not heal at all. Patient verbalized understanding of all discharge instructions and plan of care and ambulated independently out to [facility] in stable condition with no sign or symptom of distress at time of discharge. Addendum: 04/10/19 at 1552 by Brooklynn Anderson RN Amended: Links added.
== END 2019-04-10 12:45 | disposition home or self-care (01) ==
LOC: WOUND CARE 10:12 → EDSTATUS 10:30 → WOUND CARE 12:45
PROVIDERS: ATTEND Surgery
DX: T81.89XD Other complications of procedures, not elsewhere classified, subsequent encounter (principal); L98.492 Non-pressure chronic ulcer of skin of other sites with fat layer exposed; L97.221 Non-pressure chronic ulcer of left calf limited to breakdown of skin; L89.893 Pressure ulcer of other site, stage 3; M19.90 Unspecified osteoarthritis, unspecified site; I25.10 Atherosclerotic heart disease of native coronary artery without angina pectoris; I10 Essential (primary) hypertension; E66.9 Obesity, unspecified; F41.9 Anxiety disorder, unspecified; F32.9 Major depressive disorder, single episode, unspecified; F20.9 Schizophrenia, unspecified; F10.10 Alcohol abuse, uncomplicated; F17.200 Nicotine dependence, unspecified, uncomplicated; Z86.73 Personal history of transient ischemic attack (TIA), and cerebral infarction without residual deficits; Z79.2 Long term (current) use of antibiotics; Z79.899 Other long term (current) drug therapy; Z79.84 Long term (current) use of oral hypoglycemic drugs; Y83.8 Other surgical procedures as the cause of abnormal reaction of the patient, or of later complication, without mention of misadventure at the time of the procedure
CPT/HCPCS: 97605; A6021; A6206; A6243

== ENCOUNTER 2019-05-15 10:10 | Day surgery (SDC) | payer MEDICAID ==
--- NOTE | 2019-05-15 12:11 | NUR ---
Patient ambulated independently from lobby with a walker. Patient admitted to outpatient wound care for physician visit with Eric Mccord MD. Dressing removed, wound cleansed and Emla cream applied per order. Patient assessed for changes in conditions, medications and medical history. Dr. Mccord at bedside accompanied by RN. Wound assessed, time out performed by MD/RN. Wound debrided as detailed in the physician progress/procedure note. Plan of care discussed with patient. Dressings placed per MD orders. Patient instructed on the signs and symptoms of infection and to call the Wound Center if any occur or to go to the ED if we are closed: Increased pain in wound Increase in drainage from the wound Redness in the skin surrounding the wound Bleeding from the wound Temperature of 101 or greater Patient instructed that the weight of their body puts a large amount of pressure on their wounds. This pressure keeps the new tissue from growing and inhibits new blood vessels from forming. Explained that, if they continue to bear weight on a body part that has a wound, the time it takes to heal the wound increases, the wound may get worse or the wound may not heal at all. Patient verbalized understanding of all discharge instructions and plan of care and ambulated independently with walker to lobby in stable condition with no sign or symptom of distress at time of discharge. Addendum: 05/15/19 at 1213 by Brooklynn Anderson RN Amended: Links added.
== END 2019-05-15 11:36 | disposition home or self-care (01) ==
LOC: WOUND CARE 10:10
PROVIDERS: ATTEND Surgery
DX: T81.89XD Other complications of procedures, not elsewhere classified, subsequent encounter (principal); L98.492 Non-pressure chronic ulcer of skin of other sites with fat layer exposed; L89.893 Pressure ulcer of other site, stage 3; L97.221 Non-pressure chronic ulcer of left calf limited to breakdown of skin; M19.90 Unspecified osteoarthritis, unspecified site; I25.10 Atherosclerotic heart disease of native coronary artery without angina pectoris; I10 Essential (primary) hypertension; E66.9 Obesity, unspecified; F41.9 Anxiety disorder, unspecified; F32.9 Major depressive disorder, single episode, unspecified; F20.9 Schizophrenia, unspecified; F10.10 Alcohol abuse, uncomplicated; F17.200 Nicotine dependence, unspecified, uncomplicated; Z86.73 Personal history of transient ischemic attack (TIA), and cerebral infarction without residual deficits; Z79.2 Long term (current) use of antibiotics; Z79.899 Other long term (current) drug therapy; Z79.84 Long term (current) use of oral hypoglycemic drugs; Y83.8 Other surgical procedures as the cause of abnormal reaction of the patient, or of later complication, without mention of misadventure at the time of the procedure
CPT/HCPCS: 97597; 97598; A6021; A6243

== ENCOUNTER 2019-05-22 11:07 | Day surgery (SDC) | payer MEDICAID ==
[2019-05-22] MEDS ORDERED: nystatin 15 GM powder TP ONE (11:51)
--- NOTE | 2019-05-22 13:31 | NUR ---
Patient ambulated independently from lobby with a walker. Patient admitted to outpatient wound care for physician visit with Eric Mccord MD. Dressing removed, wound cleansed and Emla cream applied per order. Patient assessed for changes in conditions, medications and medical history. Dr. Mccord at bedside accompanied by RN. Wound assessed, time out performed by MD/RN. Wound debrided as detailed in the physician progress/procedure note. Plan of care discussed with patient. Dressings placed per MD orders. Patient instructed on the signs and symptoms of infection and to call the Wound Center if any occur or to go to the ED if we are closed: Increased pain in wound Increase in drainage from the wound Redness in the skin surrounding the wound Bleeding from the wound Temperature of 101 or greater Patient instructed that the weight of their body puts a large amount of pressure on their wounds. This pressure keeps the new tissue from growing and inhibits new blood vessels from forming. Explained that, if they continue to bear weight on a body part that has a wound, the time it takes to heal the wound increases, the wound may get worse or the wound may not heal at all. Patient verbalized understanding of all discharge instructions and plan of care. Patient left in stable condition with no sign or symptom of distress at time of discharge. Addendum: 05/22/19 at 1332 by Brooklynn Anderson RN Amended: Links added.
== END 2019-05-22 12:06 | disposition home or self-care (01) ==
LOC: WOUND CARE 11:07
PROVIDERS: ATTEND Surgery
DX: T81.89XD Other complications of procedures, not elsewhere classified, subsequent encounter (principal); L98.492 Non-pressure chronic ulcer of skin of other sites with fat layer exposed; L89.893 Pressure ulcer of other site, stage 3; L97.221 Non-pressure chronic ulcer of left calf limited to breakdown of skin; M19.90 Unspecified osteoarthritis, unspecified site; I25.10 Atherosclerotic heart disease of native coronary artery without angina pectoris; I10 Essential (primary) hypertension; E66.9 Obesity, unspecified; F41.9 Anxiety disorder, unspecified; F32.9 Major depressive disorder, single episode, unspecified; F20.9 Schizophrenia, unspecified; F10.10 Alcohol abuse, uncomplicated; F17.200 Nicotine dependence, unspecified, uncomplicated; Z86.73 Personal history of transient ischemic attack (TIA), and cerebral infarction without residual deficits; Z79.2 Long term (current) use of antibiotics; Z79.899 Other long term (current) drug therapy; Z79.84 Long term (current) use of oral hypoglycemic drugs; Y83.8 Other surgical procedures as the cause of abnormal reaction of the patient, or of later complication, without mention of misadventure at the time of the procedure
CPT/HCPCS: 97597; 97598; A6223; A4663; A6021; A6243

== ENCOUNTER 2019-06-12 10:30 | Day surgery (SDC) | payer MEDICAID ==
[~2019-06-12 10:30] MED LIST changes: -LISI1TAB13 PO; +LISI1TAB29 PO; +METF500T20 PO; -METF500T7 PO
[2019-06-12] MEDS ORDERED: SULF1TAB49 PO (14:32)
[2019-06-12] MEDS ORDERED: CEPH500C5 PO (14:32)
== END 2019-06-12 12:00 | disposition home or self-care (01) ==
LOC: WOUND CARE 10:30
PROVIDERS: ATTEND Surgery
DX: T81.89XD Other complications of procedures, not elsewhere classified, subsequent encounter (principal); L98.492 Non-pressure chronic ulcer of skin of other sites with fat layer exposed; L89.893 Pressure ulcer of other site, stage 3; L97.221 Non-pressure chronic ulcer of left calf limited to breakdown of skin; M19.90 Unspecified osteoarthritis, unspecified site; I25.10 Atherosclerotic heart disease of native coronary artery without angina pectoris; I10 Essential (primary) hypertension; E66.9 Obesity, unspecified; F41.9 Anxiety disorder, unspecified; F32.9 Major depressive disorder, single episode, unspecified; F20.9 Schizophrenia, unspecified; F10.10 Alcohol abuse, uncomplicated; F17.200 Nicotine dependence, unspecified, uncomplicated; Z86.73 Personal history of transient ischemic attack (TIA), and cerebral infarction without residual deficits; Z79.2 Long term (current) use of antibiotics; Z79.899 Other long term (current) drug therapy; Z79.84 Long term (current) use of oral hypoglycemic drugs; Y83.8 Other surgical procedures as the cause of abnormal reaction of the patient, or of later complication, without mention of misadventure at the time of the procedure
CPT/HCPCS: 97597; A4663; A6243

== ENCOUNTER 2019-06-12 12:16 | Emergency (ER) | payer MEDICAID ==
[~2019-06-12] VITALS: Ht 160 cm; Wt 180.0 kg
[2019-06-12 13:06] LABS: BASOPHILS # (AUTO) 0.1 X10'3 (0-0.2); BASOPHILS % (AUTO) 0.7 % (0-1); EOSINOPHILS # (AUTO) 0.3 X10'3 (0-0.9); EOSINOPHILS % (AUTO) 2.4 % (0-6); HEMATOCRIT 27.8 % (35.0-45.0); HEMOGLOBIN 8.8 g/dl (12.0-16.0); LYMPHOCYTES # (AUTO) 2.5 X10'3 (1.1-4.8); LYMPHOCYTES % (AUTO) 17.6 % (21-51); MEAN CORPUSCULAR HEMOGLOBIN 26.2 PG (27.0-31.0); MEAN CORPUSCULAR HGB CONC 31.8 g/dL (33.0-36.5); MEAN CORPUSCULAR VOLUME 82.5 FL (78-98); MONOCYTES # (AUTO) 0.6 X10'3 (0-0.9); NEUTROPHILS # (AUTO) 10.8 X10'3 (1.8-7.7); NEUTROPHILS % (AUTO) 75.3 % (42-75); PLATELET COUNT 449 X10'3 (140-440); RED BLOOD COUNT 3.37 X10'6 (4.20-5.60); RED CELL DISTRIBUTION WIDTH 18.3 % (11.5-14.5); WHITE BLOOD COUNT 14.3 X10'3 (4.5-11.0)
[2019-06-12 13:19] LABS: PARTIAL THROMBOPLASTIN TIME 29 SECONDS (22-32)
[2019-06-12 13:29] LABS: ALANINE AMINOTRANSFERASE 15 U/L (12-78); ALBUMIN 3.4 G/DL (3.4-5.0); ALBUMIN/GLOBULIN RATIO 0.7 (1.1-1.5); ALKALINE PHOSPHATASE 86 IU/L (46-116); ANION GAP 12 (8-16); ASPARTATE AMINO TRANSFERASE 11 U/L (10-37); BILIRUBIN,TOTAL 0.3 MG/DL (0.1-1.0); BLOOD UREA NITROGEN 21 MG/DL (7-18); BUN/CREATININE RATIO 19.1 (6.6-38.0); CALCIUM 8.5 MG/DL (8.5-10.1); CHLORIDE 104 MMOL/L (99-107); GLUCOSE 100 MG/DL (70-104); POTASSIUM 3.7 MMOL/L (3.5-5.1); SODIUM 140 MMOL/L (135-145); TOTAL CARBON DIOXIDE 24.3 MMOL/L (24-32); TOTAL PROTEIN 8.3 G/DL (6.4-8.2); eGFR 55 ML/MIN
[2019-06-12 13:41] VITALS: BP_DIAS 75
[2019-06-12] MEDS ORDERED: CEPH500C5 PO (14:32)
[2019-06-12] MEDS ORDERED: SULF1TAB49 PO (14:32)
[2019-06-12 14:43] VITALS: BP_SYST 114
== END 2019-06-12 14:45 | disposition home or self-care (01) ==
LOC: ER 12:16
DX: L03.116 Cellulitis of left lower limb (principal); R42 Dizziness and giddiness; I10 Essential (primary) hypertension; F41.9 Anxiety disorder, unspecified; F31.9 Bipolar disorder, unspecified; F20.9 Schizophrenia, unspecified; R79.1 Abnormal coagulation profile; Z98.890 Other specified postprocedural states; Z79.84 Long term (current) use of oral hypoglycemic drugs; Z79.899 Other long term (current) drug therapy
CPT/HCPCS: 36415; 71045; 80053; 83605; 84145; 84484; 85025; 85610; 85730; 87040; 93005; 99284

== ENCOUNTER 2019-06-26 10:32 | Day surgery (SDC) | payer MEDICAID ==
[2019-06-26] MEDS ORDERED: LIDOcaine 2% 5ml jelly ONE ×2 (11:26)
== END 2019-06-26 12:00 | disposition home or self-care (01) ==
LOC: WOUND CARE 10:32
PROVIDERS: ATTEND Surgery
DX: T81.89XD Other complications of procedures, not elsewhere classified, subsequent encounter (principal); L98.492 Non-pressure chronic ulcer of skin of other sites with fat layer exposed; L89.893 Pressure ulcer of other site, stage 3; L97.221 Non-pressure chronic ulcer of left calf limited to breakdown of skin; M19.90 Unspecified osteoarthritis, unspecified site; I25.10 Atherosclerotic heart disease of native coronary artery without angina pectoris; I10 Essential (primary) hypertension; E66.9 Obesity, unspecified; F41.9 Anxiety disorder, unspecified; F32.9 Major depressive disorder, single episode, unspecified; F20.9 Schizophrenia, unspecified; F10.10 Alcohol abuse, uncomplicated; F17.200 Nicotine dependence, unspecified, uncomplicated; Z86.73 Personal history of transient ischemic attack (TIA), and cerebral infarction without residual deficits; Z79.2 Long term (current) use of antibiotics; Z79.899 Other long term (current) drug therapy; Z79.84 Long term (current) use of oral hypoglycemic drugs; Y83.8 Other surgical procedures as the cause of abnormal reaction of the patient, or of later complication, without mention of misadventure at the time of the procedure
CPT/HCPCS: 97597; 97598; A4663; A6021; A6154; A6243

== ENCOUNTER 2019-07-17 10:35 | Day surgery (SDC) | payer MEDICAID ==
[2019-07-17] MEDS ORDERED: LIDOcaine 2% 5ml jelly ONE (11:42)
== END 2019-07-17 13:05 | disposition home or self-care (01) ==
LOC: WOUND CARE 10:35
PROVIDERS: ATTEND Surgery
DX: T81.89XD Other complications of procedures, not elsewhere classified, subsequent encounter (principal); L98.492 Non-pressure chronic ulcer of skin of other sites with fat layer exposed; L89.893 Pressure ulcer of other site, stage 3; L97.222 Non-pressure chronic ulcer of left calf with fat layer exposed; M19.90 Unspecified osteoarthritis, unspecified site; I25.10 Atherosclerotic heart disease of native coronary artery without angina pectoris; I10 Essential (primary) hypertension; E66.9 Obesity, unspecified; F41.9 Anxiety disorder, unspecified; F32.9 Major depressive disorder, single episode, unspecified; F20.9 Schizophrenia, unspecified; F10.10 Alcohol abuse, uncomplicated; F17.200 Nicotine dependence, unspecified, uncomplicated; Z86.73 Personal history of transient ischemic attack (TIA), and cerebral infarction without residual deficits; Z79.2 Long term (current) use of antibiotics; Z79.899 Other long term (current) drug therapy; Z79.84 Long term (current) use of oral hypoglycemic drugs; Z68.45 Body mass index [BMI] 70 or greater, adult; Y83.8 Other surgical procedures as the cause of abnormal reaction of the patient, or of later complication, without mention of misadventure at the time of the procedure
CPT/HCPCS: 97597; 97598; A4663; A6021; A6154; A6243

== ENCOUNTER 2019-07-21 11:06 | Emergency (ER) | payer MEDICAID ==
[~2019-07-21] VITALS: Ht 160 cm; Wt 180.0 kg
[2019-07-21] MEDS ORDERED: normal saline 1000ML IV soln IV ONE (11:40)
[2019-07-21 12:08] LABS: BASOPHILS # (AUTO) 0.1 X10'3 (0-0.2); BASOPHILS % (AUTO) 0.7 % (0-1); EOSINOPHILS # (AUTO) 0.3 X10'3 (0-0.9); EOSINOPHILS % (AUTO) 3.4 % (0-6); HEMATOCRIT 23.5 % (35.0-45.0); HEMOGLOBIN 7.3 g/dl (12.0-16.0); LYMPHOCYTES # (AUTO) 1.4 X10'3 (1.1-4.8); LYMPHOCYTES % (AUTO) 18.4 % (21-51); MEAN CORPUSCULAR HEMOGLOBIN 25.2 PG (27.0-31.0); MEAN CORPUSCULAR HGB CONC 30.8 g/dL (33.0-36.5); MEAN CORPUSCULAR VOLUME 81.8 FL (78-98); MONOCYTES # (AUTO) 0.4 X10'3 (0-0.9); MONOCYTES % (AUTO) 5.2 % (2-12); NEUTROPHILS # (AUTO) 5.7 X10'3 (1.8-7.7); NEUTROPHILS % (AUTO) 72.3 % (42-75); PLATELET COUNT 401 X10'3 (140-440); RED BLOOD COUNT 2.88 X10'6 (4.20-5.60); RED CELL DISTRIBUTION WIDTH 18.4 % (11.5-14.5); WHITE BLOOD COUNT 7.9 X10'3 (4.5-11.0)
--- NOTE | 2019-07-21 12:14 | NUR ---
VASCULAR AT BEDSIDE
[2019-07-21 12:21] LABS: ALANINE AMINOTRANSFERASE 12 U/L (12-78); ALBUMIN/GLOBULIN RATIO 0.6 (1.1-1.5); ALKALINE PHOSPHATASE 81 IU/L (46-116); ANION GAP 9 (8-16); ASPARTATE AMINO TRANSFERASE 4 U/L (10-37); BILIRUBIN,TOTAL 0.2 MG/DL (0.1-1.0); BLOOD UREA NITROGEN 24 MG/DL (7-18); BUN/CREATININE RATIO 19.5 (6.6-38.0); CHLORIDE 107 MMOL/L (99-107); CREATININE 1.23 MG/DL (0.40-0.90); GLUCOSE 113 MG/DL (70-104); MAGNESIUM 1.8 MG/DL (1.5-2.4); POTASSIUM 4.1 MMOL/L (3.5-5.1); SODIUM 143 MMOL/L (135-145); TOTAL CARBON DIOXIDE 26.7 MMOL/L (24-32); TOTAL PROTEIN 7.8 G/DL (6.4-8.2); eGFR 48 ML/MIN
[2019-07-21 12:25] LABS: PARTIAL THROMBOPLASTIN TIME 28 SECONDS (22-32)
[2019-07-21 12:41] LABS: CLARITY,URINE SLIGHTLY CLOUDY (Clear); COLOR,URINE YELLOW (Yellow); GLUCOSE, URINE NEGATIVE (Neg); KETONES,URINE NEGATIVE (Neg); LEUKOCYTE ESTERASE ,URINE NEGATIVE (Neg); NITRITES, URINE NEGATIVE (Neg); OCCULT BLOOD,URINE NEGATIVE (Neg); PH,URINE 5.5 (4.8-8.0); PROTEIN,URINE NEGATIVE (Neg); UROBILINOGEN,URINE 0.2 E.U/dL (0.2-1.0)
[2019-07-21 12:42] LABS: UA COLLECTION TYPE CLN CATCH MIDSTREAM; URINE HCG NEGATIVE (NEG)
[2019-07-21 12:48] LABS: SQUAMOUS EPITHELIAL CELL,UR MANY /LPF (FEW)
[2019-07-21 12:51] LABS: BACTERIA,URINE 2+ /HPF (Neg); RBC,URINE NONE SEEN /HPF (0-2)
[2019-07-21 12:56] LABS: TRANSITIONAL EPI CELLS,URINE FEW /HPF
[2019-07-21 13:09] LABS: ANISOCYTOSIS 2+; PLATELET ESTIMATE NORMAL
[2019-07-21 13:16] LABS: HYPOCHROMASIA 1+
[2019-07-21] MEDS ORDERED: CEPH250T PO (15:07)
[2019-07-21] MEDS ORDERED: SULF1TAB49 PO (15:07)
[2019-07-21] MEDS ORDERED: cephalexin 250mg capsule PO ONE (15:10)
[2019-07-21] MEDS ORDERED: sulfamethoxazole/trimethoprim DS (800/160mg) tablet PO ONE (15:10)
[2019-07-21 15:44] VITALS: BP 123/64
== END 2019-07-21 15:46 | disposition home or self-care (01) ==
LOC: ER 11:07
DX: L03.116 Cellulitis of left lower limb (principal); I10 Essential (primary) hypertension; F41.9 Anxiety disorder, unspecified; F31.9 Bipolar disorder, unspecified; F20.9 Schizophrenia, unspecified; R79.1 Abnormal coagulation profile; Z98.890 Other specified postprocedural states; Z79.84 Long term (current) use of oral hypoglycemic drugs; Z79.899 Other long term (current) drug therapy
CPT/HCPCS: 36415; 80053; 81001; 81025; 83605; 83735; 84145; 85025; 85610; 85730; 87040; 93971; 99284; J7030

== ENCOUNTER 2019-07-31 10:00 | Outpatient (CLI) | payer MEDICAID | END 2019-07-31 12:15 | disposition home or self-care (01) | LOC: WOUND CARE 10:00 → EDSTATUS 10:30 → WOUND CARE 12:15 | PROVIDERS: ATTEND Surgery | DX: T81.89XD Other complications of procedures, not elsewhere classified, subsequent encounter (principal); L98.492 Non-pressure chronic ulcer of skin of other sites with fat layer exposed; L89.893 Pressure ulcer of other site, stage 3; L97.222 Non-pressure chronic ulcer of left calf with fat layer exposed; M19.90 Unspecified osteoarthritis, unspecified site; I25.10 Atherosclerotic heart disease of native coronary artery without angina pectoris; I10 Essential (primary) hypertension; E66.9 Obesity, unspecified; F41.9 Anxiety disorder, unspecified; F32.9 Major depressive disorder, single episode, unspecified; F20.9 Schizophrenia, unspecified; F10.10 Alcohol abuse, uncomplicated; F17.200 Nicotine dependence, unspecified, uncomplicated; Z86.73 Personal history of transient ischemic attack (TIA), and cerebral infarction without residual deficits; Z79.2 Long term (current) use of antibiotics; Z79.899 Other long term (current) drug therapy; Z79.84 Long term (current) use of oral hypoglycemic drugs; Z68.45 Body mass index [BMI] 70 or greater, adult; Y83.8 Other surgical procedures as the cause of abnormal reaction of the patient, or of later complication, without mention of misadventure at the time of the procedure | CPT/HCPCS: A4663; A6021; A6243; G0463 ==

== ENCOUNTER 2019-08-21 10:30 | Outpatient (CLI) | payer MEDICAID | END 2019-08-21 12:20 | disposition home or self-care (01) | LOC: EDSTATUS 10:30 → WOUND CARE 10:30 | PROVIDERS: ATTEND Surgery | DX: T81.89XD Other complications of procedures, not elsewhere classified, subsequent encounter (principal); L98.492 Non-pressure chronic ulcer of skin of other sites with fat layer exposed; L89.893 Pressure ulcer of other site, stage 3; L97.222 Non-pressure chronic ulcer of left calf with fat layer exposed; M19.90 Unspecified osteoarthritis, unspecified site; I25.10 Atherosclerotic heart disease of native coronary artery without angina pectoris; I10 Essential (primary) hypertension; E66.9 Obesity, unspecified; F41.9 Anxiety disorder, unspecified; F32.9 Major depressive disorder, single episode, unspecified; F20.9 Schizophrenia, unspecified; F10.10 Alcohol abuse, uncomplicated; F17.200 Nicotine dependence, unspecified, uncomplicated; Z86.73 Personal history of transient ischemic attack (TIA), and cerebral infarction without residual deficits; Z79.2 Long term (current) use of antibiotics; Z79.899 Other long term (current) drug therapy; Z79.84 Long term (current) use of oral hypoglycemic drugs; Z68.45 Body mass index [BMI] 70 or greater, adult; Y83.8 Other surgical procedures as the cause of abnormal reaction of the patient, or of later complication, without mention of misadventure at the time of the procedure | CPT/HCPCS: A6021; A6154; A6243; G0463 ==

== ENCOUNTER 2019-09-15 10:00 | Outpatient (CLI) | payer MEDICAID | END 2019-09-15 11:33 | disposition home or self-care (01) | LOC: WOUND CARE 10:00 → EDSTATUS 10:30 → WOUND CARE 11:33 | PROVIDERS: ATTEND Surgery | DX: T81.89XD Other complications of procedures, not elsewhere classified, subsequent encounter (principal); L98.492 Non-pressure chronic ulcer of skin of other sites with fat layer exposed; L89.893 Pressure ulcer of other site, stage 3; L97.222 Non-pressure chronic ulcer of left calf with fat layer exposed; M19.90 Unspecified osteoarthritis, unspecified site; I25.10 Atherosclerotic heart disease of native coronary artery without angina pectoris; I10 Essential (primary) hypertension; E66.9 Obesity, unspecified; F41.9 Anxiety disorder, unspecified; F32.9 Major depressive disorder, single episode, unspecified; F20.9 Schizophrenia, unspecified; F10.10 Alcohol abuse, uncomplicated; F17.200 Nicotine dependence, unspecified, uncomplicated; Z86.73 Personal history of transient ischemic attack (TIA), and cerebral infarction without residual deficits; Z79.2 Long term (current) use of antibiotics; Z79.899 Other long term (current) drug therapy; Z79.84 Long term (current) use of oral hypoglycemic drugs; Z68.45 Body mass index [BMI] 70 or greater, adult; Y83.8 Other surgical procedures as the cause of abnormal reaction of the patient, or of later complication, without mention of misadventure at the time of the procedure | CPT/HCPCS: A4663; A6021; A6154; A6212; A6243; G0463 ==

== ENCOUNTER 2019-10-06 10:20 | Day surgery (SDC) | payer MEDICAID | END 2019-10-06 12:20 | disposition home or self-care (01) | LOC: WOUND CARE 10:20 | PROVIDERS: ATTEND Surgery | DX: T81.89XD Other complications of procedures, not elsewhere classified, subsequent encounter (principal); L98.492 Non-pressure chronic ulcer of skin of other sites with fat layer exposed; L89.893 Pressure ulcer of other site, stage 3; L97.222 Non-pressure chronic ulcer of left calf with fat layer exposed; M19.90 Unspecified osteoarthritis, unspecified site; I25.10 Atherosclerotic heart disease of native coronary artery without angina pectoris; I10 Essential (primary) hypertension; E66.9 Obesity, unspecified; F41.9 Anxiety disorder, unspecified; F20.9 Schizophrenia, unspecified; F10.10 Alcohol abuse, uncomplicated; F17.200 Nicotine dependence, unspecified, uncomplicated; F32.9 Major depressive disorder, single episode, unspecified; Z86.73 Personal history of transient ischemic attack (TIA), and cerebral infarction without residual deficits; Z79.2 Long term (current) use of antibiotics; Z79.899 Other long term (current) drug therapy; Z79.84 Long term (current) use of oral hypoglycemic drugs; Z68.45 Body mass index [BMI] 70 or greater, adult; Y83.8 Other surgical procedures as the cause of abnormal reaction of the patient, or of later complication, without mention of misadventure at the time of the procedure | CPT/HCPCS: 97597; A4663; A6021; A6154; A6212; A6243 ==

== ENCOUNTER 2019-11-06 10:20 | Day surgery (SDC) | payer MEDICAID | END 2019-11-06 12:15 | disposition home or self-care (01) | LOC: WOUND CARE 10:20 | PROVIDERS: ATTEND Surgery | DX: T81.89XD Other complications of procedures, not elsewhere classified, subsequent encounter (principal); L98.492 Non-pressure chronic ulcer of skin of other sites with fat layer exposed; L97.228 Non-pressure chronic ulcer of left calf with other specified severity; M19.90 Unspecified osteoarthritis, unspecified site; I25.10 Atherosclerotic heart disease of native coronary artery without angina pectoris; I10 Essential (primary) hypertension; E66.9 Obesity, unspecified; F41.9 Anxiety disorder, unspecified; F20.9 Schizophrenia, unspecified; F10.10 Alcohol abuse, uncomplicated; F17.200 Nicotine dependence, unspecified, uncomplicated; F32.9 Major depressive disorder, single episode, unspecified; Z86.73 Personal history of transient ischemic attack (TIA), and cerebral infarction without residual deficits; Z79.2 Long term (current) use of antibiotics; Z79.899 Other long term (current) drug therapy; Z79.84 Long term (current) use of oral hypoglycemic drugs; Z68.45 Body mass index [BMI] 70 or greater, adult; Y83.8 Other surgical procedures as the cause of abnormal reaction of the patient, or of later complication, without mention of misadventure at the time of the procedure | CPT/HCPCS: 97597; A4663; A6021; A6154; A6212; A6243 ==

== ENCOUNTER 2019-11-27 10:20 | Day surgery (SDC) | payer MEDICAID | END 2019-11-27 11:50 | disposition home or self-care (01) | LOC: WOUND CARE 10:20 | PROVIDERS: ATTEND Surgery | DX: T81.89XD Other complications of procedures, not elsewhere classified, subsequent encounter (principal); L98.492 Non-pressure chronic ulcer of skin of other sites with fat layer exposed; L97.222 Non-pressure chronic ulcer of left calf with fat layer exposed; L89.893 Pressure ulcer of other site, stage 3; M19.90 Unspecified osteoarthritis, unspecified site; I25.10 Atherosclerotic heart disease of native coronary artery without angina pectoris; I10 Essential (primary) hypertension; E66.9 Obesity, unspecified; F41.9 Anxiety disorder, unspecified; F20.9 Schizophrenia, unspecified; F10.10 Alcohol abuse, uncomplicated; F17.200 Nicotine dependence, unspecified, uncomplicated; F32.9 Major depressive disorder, single episode, unspecified; Z86.73 Personal history of transient ischemic attack (TIA), and cerebral infarction without residual deficits; Z79.2 Long term (current) use of antibiotics; Z79.899 Other long term (current) drug therapy; Z79.84 Long term (current) use of oral hypoglycemic drugs; Z68.45 Body mass index [BMI] 70 or greater, adult; Y83.8 Other surgical procedures as the cause of abnormal reaction of the patient, or of later complication, without mention of misadventure at the time of the procedure | CPT/HCPCS: A4663; A6021; A6154; A6212; A6243; G0463 ==

== ENCOUNTER 2019-12-25 10:36 | Day surgery (SDC) | payer MEDICAID ==
[2019-12-25] MEDS ORDERED: LIDOcaine 2% 5ml jelly ONE (11:00)
== END 2019-12-25 12:05 | disposition home or self-care (01) ==
LOC: WOUND CARE 10:36
PROVIDERS: ATTEND Surgery
DX: T81.89XD Other complications of procedures, not elsewhere classified, subsequent encounter (principal); L98.492 Non-pressure chronic ulcer of skin of other sites with fat layer exposed; L97.222 Non-pressure chronic ulcer of left calf with fat layer exposed; L89.893 Pressure ulcer of other site, stage 3; M19.90 Unspecified osteoarthritis, unspecified site; I25.10 Atherosclerotic heart disease of native coronary artery without angina pectoris; I10 Essential (primary) hypertension; E66.9 Obesity, unspecified; F41.9 Anxiety disorder, unspecified; F20.9 Schizophrenia, unspecified; F10.10 Alcohol abuse, uncomplicated; F17.200 Nicotine dependence, unspecified, uncomplicated; F32.9 Major depressive disorder, single episode, unspecified; Z86.73 Personal history of transient ischemic attack (TIA), and cerebral infarction without residual deficits; Z79.2 Long term (current) use of antibiotics; Z79.899 Other long term (current) drug therapy; Z79.84 Long term (current) use of oral hypoglycemic drugs; Z68.45 Body mass index [BMI] 70 or greater, adult; Y83.8 Other surgical procedures as the cause of abnormal reaction of the patient, or of later complication, without mention of misadventure at the time of the procedure
CPT/HCPCS: 97597

== ENCOUNTER 2020-01-22 10:30 | Day surgery (SDC) | payer MEDICAID ==
[2020-01-22] MEDS ORDERED: LIDOcaine 2% 5ml jelly ONE (11:00)
== END 2020-01-22 11:44 | disposition home or self-care (01) ==
LOC: WOUND CARE 10:30
PROVIDERS: ATTEND Surgery
DX: T81.89XD Other complications of procedures, not elsewhere classified, subsequent encounter (principal); L98.492 Non-pressure chronic ulcer of skin of other sites with fat layer exposed; L97.222 Non-pressure chronic ulcer of left calf with fat layer exposed; L89.893 Pressure ulcer of other site, stage 3; M19.90 Unspecified osteoarthritis, unspecified site; I25.10 Atherosclerotic heart disease of native coronary artery without angina pectoris; I10 Essential (primary) hypertension; E66.9 Obesity, unspecified; F41.9 Anxiety disorder, unspecified; F20.9 Schizophrenia, unspecified; F10.10 Alcohol abuse, uncomplicated; F17.200 Nicotine dependence, unspecified, uncomplicated; F32.9 Major depressive disorder, single episode, unspecified; Z86.73 Personal history of transient ischemic attack (TIA), and cerebral infarction without residual deficits; Z79.2 Long term (current) use of antibiotics; Z79.899 Other long term (current) drug therapy; Z79.84 Long term (current) use of oral hypoglycemic drugs; Z68.45 Body mass index [BMI] 70 or greater, adult; Y83.8 Other surgical procedures as the cause of abnormal reaction of the patient, or of later complication, without mention of misadventure at the time of the procedure
CPT/HCPCS: 97597

== ENCOUNTER 2020-02-12 10:40 | Outpatient (CLI) | payer MEDICAID | END 2020-02-12 11:15 | disposition home or self-care (01) | LOC: WOUND CARE 10:40 | PROVIDERS: ATTEND Nurse Practitioner | DX: T81.89XD Other complications of procedures, not elsewhere classified, subsequent encounter (principal); L98.492 Non-pressure chronic ulcer of skin of other sites with fat layer exposed; L97.222 Non-pressure chronic ulcer of left calf with fat layer exposed; L89.893 Pressure ulcer of other site, stage 3; M19.90 Unspecified osteoarthritis, unspecified site; I25.10 Atherosclerotic heart disease of native coronary artery without angina pectoris; I10 Essential (primary) hypertension; E66.9 Obesity, unspecified; F41.9 Anxiety disorder, unspecified; F20.9 Schizophrenia, unspecified; F10.10 Alcohol abuse, uncomplicated; F17.200 Nicotine dependence, unspecified, uncomplicated; F32.9 Major depressive disorder, single episode, unspecified; Z86.73 Personal history of transient ischemic attack (TIA), and cerebral infarction without residual deficits; Z79.2 Long term (current) use of antibiotics; Z79.899 Other long term (current) drug therapy; Z79.84 Long term (current) use of oral hypoglycemic drugs; Z68.45 Body mass index [BMI] 70 or greater, adult; Y83.8 Other surgical procedures as the cause of abnormal reaction of the patient, or of later complication, without mention of misadventure at the time of the procedure | CPT/HCPCS: G0463 ==

== ENCOUNTER 2020-03-11 10:00 | Day surgery (SDC) | payer MEDICAID ==
[2020-03-11] MEDS ORDERED: LIDOcaine 2% 5ml jelly ONE (10:09)
== END 2020-03-11 11:06 | disposition home or self-care (01) ==
LOC: WOUND CARE 10:00
PROVIDERS: ATTEND Nurse Practitioner
DX: T81.89XD Other complications of procedures, not elsewhere classified, subsequent encounter (principal); L98.492 Non-pressure chronic ulcer of skin of other sites with fat layer exposed; L97.222 Non-pressure chronic ulcer of left calf with fat layer exposed; M19.90 Unspecified osteoarthritis, unspecified site; I25.10 Atherosclerotic heart disease of native coronary artery without angina pectoris; I10 Essential (primary) hypertension; E66.9 Obesity, unspecified; F41.9 Anxiety disorder, unspecified; F20.9 Schizophrenia, unspecified; F10.10 Alcohol abuse, uncomplicated; F17.200 Nicotine dependence, unspecified, uncomplicated; F32.9 Major depressive disorder, single episode, unspecified; Z86.73 Personal history of transient ischemic attack (TIA), and cerebral infarction without residual deficits; Z79.2 Long term (current) use of antibiotics; Z79.899 Other long term (current) drug therapy; Z79.84 Long term (current) use of oral hypoglycemic drugs; Z68.45 Body mass index [BMI] 70 or greater, adult; Y83.8 Other surgical procedures as the cause of abnormal reaction of the patient, or of later complication, without mention of misadventure at the time of the procedure
CPT/HCPCS: 97597

== ENCOUNTER 2020-03-22 10:40 | Day surgery (SDC) | payer MEDICAID ==
[~2020-03-22 10:40] MED LIST changes: +METF-900 PO; -METF500T20 PO
[2020-03-22] MEDS ORDERED: LIDOcaine 2% 5ml jelly ONE (10:58)
== END 2020-03-22 12:01 | disposition home or self-care (01) ==
LOC: WOUND CARE 10:40
PROVIDERS: ATTEND Nurse Practitioner Family
DX: T81.89XD Other complications of procedures, not elsewhere classified, subsequent encounter (principal); L98.492 Non-pressure chronic ulcer of skin of other sites with fat layer exposed; L97.222 Non-pressure chronic ulcer of left calf with fat layer exposed; M19.90 Unspecified osteoarthritis, unspecified site; I25.10 Atherosclerotic heart disease of native coronary artery without angina pectoris; I10 Essential (primary) hypertension; E66.9 Obesity, unspecified; F41.9 Anxiety disorder, unspecified; F20.9 Schizophrenia, unspecified; F10.10 Alcohol abuse, uncomplicated; F17.200 Nicotine dependence, unspecified, uncomplicated; F32.9 Major depressive disorder, single episode, unspecified; Z86.73 Personal history of transient ischemic attack (TIA), and cerebral infarction without residual deficits; Z79.2 Long term (current) use of antibiotics; Z79.899 Other long term (current) drug therapy; Z79.84 Long term (current) use of oral hypoglycemic drugs; Z68.45 Body mass index [BMI] 70 or greater, adult; Y83.8 Other surgical procedures as the cause of abnormal reaction of the patient, or of later complication, without mention of misadventure at the time of the procedure
CPT/HCPCS: 97597

== ENCOUNTER 2020-04-09 16:09 | Inpatient (IN) | payer MEDICAID ==
[~2020-04-09] VITALS: Ht 160 cm; Wt 188.0 kg
[2020-04-09 17:19] LABS: BASOPHILS % (AUTO) 0.3 % (0-1); EOSINOPHILS # (AUTO) 0.1 X10'3 (0-0.9); EOSINOPHILS % (AUTO) 0.7 % (0-6); HEMATOCRIT 33.6 % (35.0-45.0); HEMOGLOBIN 10.6 g/dl (12.0-16.0); LYMPHOCYTES # (AUTO) 1.1 X10'3 (1.1-4.8); LYMPHOCYTES % (AUTO) 8.1 % (21-51); MEAN CORPUSCULAR HEMOGLOBIN 26.5 PG (27.0-31.0); MEAN CORPUSCULAR HGB CONC 31.5 g/dL (33.0-36.5); MEAN CORPUSCULAR VOLUME 84.2 FL (78-98); MEAN PLATELET VOLUME 7.8 FL (7.4-10.4); MONOCYTES # (AUTO) 0.5 X10'3 (0-0.9); NEUTROPHILS # (AUTO) 11.8 X10'3 (1.8-7.7); NEUTROPHILS % (AUTO) 86.9 % (42-75); PLATELET COUNT 269 X10'3 (140-440); RED BLOOD COUNT 3.99 X10'6 (4.20-5.60); RED CELL DISTRIBUTION WIDTH 18.2 % (11.5-14.5); WHITE BLOOD COUNT 13.5 X10'3 (4.5-11.0)
[2020-04-09 17:21] LABS: PARTIAL THROMBOPLASTIN TIME 32 SECONDS (22-32)
[2020-04-09 17:32] LABS: ALANINE AMINOTRANSFERASE 31 U/L (12-78); ALBUMIN 3.3 G/DL (3.4-5.0); ALBUMIN/GLOBULIN RATIO 0.7 (1.1-1.5); ALKALINE PHOSPHATASE 120 IU/L (46-116); ANION GAP 13 (8-16); ASPARTATE AMINO TRANSFERASE 18 U/L (10-37); BILIRUBIN,TOTAL 0.3 MG/DL (0.1-1.0); BLOOD UREA NITROGEN 16 MG/DL (7-18); BUN/CREATININE RATIO 17.6 (6.6-38.0); CALCIUM 9.3 MG/DL (8.5-10.1); CHLORIDE 106 MMOL/L (99-107); CREATININE 0.91 MG/DL (0.40-0.90); GLUCOSE 122 MG/DL (70-104); MAGNESIUM 1.6 MG/DL (1.5-2.4); POTASSIUM 3.3 MMOL/L (3.5-5.1); SODIUM 140 MMOL/L (135-145); TOTAL CARBON DIOXIDE 21.5 MMOL/L (24-32); TOTAL PROTEIN 7.9 G/DL (6.4-8.2); eGFR 68 ML/MIN
[2020-04-09] MEDS ORDERED: normal saline 1000ML IV soln IVB ONE ×2 (17:40→18:45)
--- NOTE | 2020-04-09 17:50 | NUR ---
SHANT CHANGED TO LEVEL 3 AFTER EVAL FROM PROVIDER
[2020-04-09] MEDS ORDERED: METO-539 PO (17:56)
[2020-04-09] MEDS ORDERED: PALI1.5T PO (17:56)
[2020-04-09] MEDS ORDERED: MIRT15TA PO (17:56)
[2020-04-09] MEDS ORDERED: vancomycin/NS 1 GM ADD-VANTAGE 250 ML IV ONE (18:00)
[2020-04-09] MEDS ORDERED: HYDROcodone/acetaminophen 5mg/325mg tablet PO ONE (18:20)
[2020-04-09] MEDS ORDERED: magnesium 4gm in 100ml NS 100 ML IV PRN (19:20)
[2020-04-09] MEDS ORDERED: morphine 2 MG/ML inj. syringe IV PRN (19:20)
[2020-04-09] MEDS ORDERED: potassium Cl 20 mEq SR tablet PO PRN (19:20)
[2020-04-09] MEDS ORDERED: magnesium Cl slow-release 64mg tablet PO PRN (19:20)
[2020-04-09] MEDS ORDERED: acetaminophen 325mg tablet PO PRN (19:20)
[2020-04-09] MEDS ORDERED: mag hydrox/Alum hydrox/simeth 30ml oral suspension PO PRN (19:20)
[2020-04-09] MEDS ORDERED: potassium CL 10mEq/100ml bag 100 ML IV PRN ×2 (19:20)
[2020-04-09] MEDS ORDERED: magnesium hydroxide 30ml (MOM) UD suspension PO PRN (19:20)
[2020-04-09] MEDS ORDERED: bisacodyl 10mg suppository rectal RC PRN (19:20)
[2020-04-09] MEDS ORDERED: ondansetron/PF 4mg/2ml inj IV PRN (19:20)
[2020-04-09] MEDS: normal saline 1000ml 1,000 ML IV SCH (19:20)
[2020-04-09] MEDS ORDERED: magnesium 2GM in 50ml NS 50 ML IV PRN (19:20)
[2020-04-09] MEDS: docusate sod 100mg capsule PO SCH (19:36)
[2020-04-09] MEDS: K and/or MAG REPLACEMENT MC SCH (20:00)
[2020-04-09] MEDS ORDERED: metoprolol tartrate 25mg tablet PO ONE (20:05)
--- NOTE | 2020-04-09 20:10 | NUR ---
Pt PIV pulled when transferring back into bed. New 20 G PIV established Right AC.
[2020-04-09 20:22] LABS: URINE HCG NEGATIVE (NEG)
[2020-04-09] MEDS ORDERED: CYCL5TAB PO (20:50)
[2020-04-09] MEDS ORDERED: TOP100T PO (20:50)
[2020-04-09] MEDS ORDERED: temazepam 15mg capsule PO PRN (21:00)
[2020-04-09] MEDS: gabapentin 300mg capsule PO SCH (21:23)
[2020-04-09] MEDS: busPIRone 15mg tablet PO SCH (21:24)
[2020-04-09 23:00] VITALS: BP 116/55
--- NOTE | 2020-04-09 23:25 | NUR ---
RC'D VERBAL REPORT FROM SHAWN AND ASSUMED CARE OF PATIENT UPON ARRIVAL TO SURGICAL FLOOR AT 2230. PATIENT TRANSFERED HERSELF INTO THE BED FROM THE [facility]. MRSA SWAB AND 2 RN SKIN CHECK COMPLETED. CALL LIGHT GIVEN TO PATIENT AND ENCOURAGED IT'S USE
[2020-04-10] MEDS: HYDROcodone/acetaminophen 5mg/325mg tablet PO PRN ×2 (00:11→12:43)
--- NOTE | 2020-04-10 00:40 | NUR ---
2 RN SKIN CHECK YIELDED MOIST REDDENED AND FOUL SMELLING SKIN AREAS IN PANUS, AND BEHIND BOTH KNEES. DEEP FOLDS IN THESE AREAS. CALLED DR. JOHNSON FOR NYSTATIN ORDER AND ALSO PATIENT HAS HX OF SLEEP APNEA AND WEARS A CPAP AT NIGHT, THIS WAS ALSO ADDRESSED AND MD PUTTING IN ORDERS.
[2020-04-10] MEDS: nystatin 15 GM powder TP SCH ×3 (00:53→20:00)
[2020-04-10] MEDS: potassium Cl 20 mEq SR tablet PO PRN ×4 (00:53→16:24)
[2020-04-10] MEDS: normal saline 1000ml 1,000 ML IV SCH (02:06)
[2020-04-10] MEDS: VANCOMYCIN 1,500MG inj. 1,500 MG in normal saline 500ml IV soln 500 ML IV SCH ×2 (02:06→09:12)
[2020-04-10 05:11] LABS: BASOPHILS % (AUTO) 0.2 % (0-1); EOSINOPHILS # (AUTO) 0.1 X10'3 (0-0.9); EOSINOPHILS % (AUTO) 0.5 % (0-6); HEMOGLOBIN 8.9 g/dl (12.0-16.0); LYMPHOCYTES # (AUTO) 0.9 X10'3 (1.1-4.8); LYMPHOCYTES % (AUTO) 5.6 % (21-51); MEAN CORPUSCULAR HEMOGLOBIN 27.1 PG (27.0-31.0); MEAN CORPUSCULAR VOLUME 84.8 FL (78-98); MEAN PLATELET VOLUME 7.7 FL (7.4-10.4); MONOCYTES # (AUTO) 0.8 X10'3 (0-0.9); NEUTROPHILS # (AUTO) 14.8 X10'3 (1.8-7.7); NEUTROPHILS % (AUTO) 88.7 % (42-75); PLATELET COUNT 226 X10'3 (140-440); RED CELL DISTRIBUTION WIDTH 18.2 % (11.5-14.5); WHITE BLOOD COUNT 16.7 X10'3 (4.5-11.0)
[2020-04-10 05:34] LABS: ALANINE AMINOTRANSFERASE 22 U/L (12-78); ALBUMIN 2.4 G/DL (3.4-5.0); ALBUMIN/GLOBULIN RATIO 0.6 (1.1-1.5); ALKALINE PHOSPHATASE 107 IU/L (46-116); ANION GAP 12 (8-16); ASPARTATE AMINO TRANSFERASE 11 U/L (10-37); BILIRUBIN,TOTAL 0.8 MG/DL (0.1-1.0); BLOOD UREA NITROGEN 17 MG/DL (7-18); BUN/CREATININE RATIO 16.8 (6.6-38.0); CHLORIDE 110 MMOL/L (99-107); CREATININE 1.01 MG/DL (0.40-0.90); GLUCOSE 146 MG/DL (70-104); MAGNESIUM 1.5 MG/DL (1.5-2.4); POTASSIUM 3.3 MMOL/L (3.5-5.1); SODIUM 142 MMOL/L (135-145); TOTAL CARBON DIOXIDE 20.2 MMOL/L (24-32); TOTAL PROTEIN 6.2 G/DL (6.4-8.2); eGFR 60 ML/MIN
[2020-04-10 05:38] LABS: CALCIUM 7.9 MG/DL (8.5-10.1)
[2020-04-10 06:30] VITALS: BP 131/70
--- NOTE | 2020-04-10 06:40 | NUR ---
Patient in room [facility] 356. I have received report from KAT Hurst and had the opportunity to ask questions and assume patient care.
--- NOTE | 2020-04-10 06:48 | NUR ---
Problems reprioritized. Patient report given, questions answered & plan of care reviewed with CANDICE RN.
[2020-04-10] MEDS: K and/or MAG REPLACEMENT MC SCH ×2 (07:36→20:00)
[2020-04-10] MEDS ORDERED: insulin Lispro (HumaLOG) vial - multi-dose SQ SCH (07:40)
[2020-04-10] MEDS ORDERED: dextrose 50%-water 50ml dispensing syringe IV PRN ×2 (07:40)
[2020-04-10] MEDS ORDERED: glucagon, human recombinant 1mg kit SUBCUT PRN (07:40)
[2020-04-10] MEDS ORDERED: dextrose ORAL solution 15 GM/59 ML bottle PO PRN ×2 (07:40)
[2020-04-10] MEDS ORDERED: enoxaparin 40mg/0.4ml syringe SQ SCH (08:00)
[2020-04-10] MEDS: gabapentin 300mg capsule PO SCH ×2 (09:09→20:46)
[2020-04-10] MEDS: docusate sod 100mg capsule PO SCH ×2 (09:10→20:46)
[2020-04-10] MEDS: ARIPIPRAZOLE 15 MG TABLET PO SCH (09:10)
[2020-04-10] MEDS: busPIRone 15mg tablet PO SCH ×4 (09:10→20:46)
[2020-04-10] MEDS ORDERED: furosemide 20 MG/2 ML vial IV ONE (10:15)
[2020-04-10 11:00] VITALS: BP 117/64
[2020-04-10] MEDS: ceFAZolin 2gm in dextrose, iso 50 ML IV SCH ×2 (16:18→23:38)
--- NOTE | 2020-04-10 18:40 | NUR ---
Problems reprioritized. Patient report given, questions answered & plan of care reviewed with KAT Hurst.
--- NOTE | 2020-04-10 18:52 | NUR ---
Patient in room [facility] 356. I have received report from Padmini STEPHENS and had the opportunity to ask questions and assume patient care.
[2020-04-10 20:00] VITALS: BP 115/63
[2020-04-10] MEDS: lactobacillus rhamnosus 10,000 MMU CELLS/CAPSULE PO SCH (20:46)
[2020-04-10] MEDS: furosemide 20 MG/2 ML vial IV SCH (20:46)
[2020-04-10] MEDS ORDERED: insulin glargine (Lantus) pen - multi-dose SQ SCH (21:00)
[2020-04-10 23:58] VITALS: BP 124/69
[2020-04-11] MEDS ORDERED: VANCOMYCIN LEVEL IV ONE (01:30)
[2020-04-11] MEDS: HYDROcodone/acetaminophen 5mg/325mg tablet PO PRN ×3 (05:23→20:12)
[2020-04-11 05:40] LABS: BASOPHILS % (AUTO) 0.2 % (0-1); EOSINOPHILS # (AUTO) 0.1 X10'3 (0-0.9); EOSINOPHILS % (AUTO) 0.9 % (0-6); HEMATOCRIT 26.9 % (35.0-45.0); HEMOGLOBIN 8.6 g/dl (12.0-16.0); LYMPHOCYTES # (AUTO) 1.4 X10'3 (1.1-4.8); LYMPHOCYTES % (AUTO) 10.2 % (21-51); MEAN CORPUSCULAR HEMOGLOBIN 26.7 PG (27.0-31.0); MEAN CORPUSCULAR HGB CONC 31.8 g/dL (33.0-36.5); MEAN CORPUSCULAR VOLUME 83.9 FL (78-98); MEAN PLATELET VOLUME 7.7 FL (7.4-10.4); MONOCYTES # (AUTO) 0.8 X10'3 (0-0.9); MONOCYTES % (AUTO) 5.4 % (2-12); NEUTROPHILS # (AUTO) 11.7 X10'3 (1.8-7.7); NEUTROPHILS % (AUTO) 83.3 % (42-75); PLATELET COUNT 268 X10'3 (140-440); RED BLOOD COUNT 3.21 X10'6 (4.20-5.60); RED CELL DISTRIBUTION WIDTH 18.1 % (11.5-14.5)
[2020-04-11 05:44] LABS: ALANINE AMINOTRANSFERASE 19 U/L (12-78); ALBUMIN 2.4 G/DL (3.4-5.0); ALBUMIN/GLOBULIN RATIO 0.6 (1.1-1.5); ALKALINE PHOSPHATASE 123 IU/L (46-116); ANION GAP 8 (8-16); ASPARTATE AMINO TRANSFERASE 8 U/L (10-37); BILIRUBIN,TOTAL 0.5 MG/DL (0.1-1.0); BLOOD UREA NITROGEN 14 MG/DL (7-18); BUN/CREATININE RATIO 15.6 (6.6-38.0); CALCIUM 8.1 MG/DL (8.5-10.1); CHLORIDE 107 MMOL/L (99-107); GLUCOSE 116 MG/DL (70-104); MAGNESIUM 1.7 MG/DL (1.5-2.4); PHOSPHORUS 3.2 MG/DL (2.3-4.5); POTASSIUM 3.2 MMOL/L (3.5-5.1); SODIUM 139 MMOL/L (135-145); TOTAL CARBON DIOXIDE 24.2 MMOL/L (24-32); TOTAL PROTEIN 6.7 G/DL (6.4-8.2); VANCOMYCIN,TROUGH 6.2 UG/ML (6.0-14.0); eGFR 69 ML/MIN
--- NOTE | 2020-04-11 06:34 | NUR ---
Problems reprioritized. Patient report given, questions answered & plan of care reviewed with JEM STEPHENS.
--- NOTE | 2020-04-11 06:39 | NUR ---
Patient in room [facility] 356. I have received report from Natali STEPHENS and had the opportunity to ask questions and assume patient care.
--- NOTE | 2020-04-11 06:46 | NUR ---
RECEIVED REPORT FROM JAXSON STEPHENS
[2020-04-11 07:00] VITALS: BP 119/66
[2020-04-11] MEDS: lactobacillus rhamnosus 10,000 MMU CELLS/CAPSULE PO SCH ×2 (07:28→20:10)
[2020-04-11] MEDS: gabapentin 300mg capsule PO SCH ×2 (07:28→20:10)
[2020-04-11] MEDS: docusate sod 100mg capsule PO SCH ×2 (07:29→20:10)
[2020-04-11] MEDS: potassium Cl 20 mEq SR tablet PO PRN ×3 (07:29→20:41)
[2020-04-11] MEDS: busPIRone 15mg tablet PO SCH ×4 (07:29→20:10)
[2020-04-11] MEDS: ceFAZolin 2gm in dextrose, iso 50 ML IV SCH ×3 (07:31→23:49)
[2020-04-11] MEDS: enoxaparin 40mg/0.4ml syringe SUBCUT SCH (07:33)
[2020-04-11] MEDS: furosemide 20 MG/2 ML vial IV SCH ×2 (07:35→20:10)
[2020-04-11] MEDS: nystatin 15 GM powder TP SCH ×2 (08:00→20:23)
[2020-04-11] MEDS: K and/or MAG REPLACEMENT MC SCH ×2 (08:13→20:00)
[2020-04-11] MEDS: ARIPIPRAZOLE 15 MG TABLET PO SCH (08:20)
[2020-04-11 12:00] VITALS: BP 129/71
--- NOTE | 2020-04-11 13:21 | NUR ---
DM Consult: Pt A1C 5.1 and not appropriate for DM ed at this time. Noted 188kg scaled wt this admit which is accurate per RN. Pt PO 100% meals; double eggs at breakfast and meats BIDLD added for additional protein/kcal needs given morbid obesity. Addendum: 04/11/20 at [address] Amended: Links added.
[2020-04-11 15:12] LABS: OCCULT BLOOD STOOL POSITIVE (Neg)
--- NOTE | 2020-04-11 18:25 | NUR ---
Patient in room [facility] 356. I have received report from KAT Adorno and had the opportunity to ask questions and assume patient care.
--- NOTE | 2020-04-11 18:29 | NUR ---
REPORT GIVEN TO TEJ
[2020-04-11 21:58] VITALS: BP 125/71
[2020-04-12] VITALS: BP 115/61
[2020-04-12 06:09] LABS: BASOPHILS # (AUTO) 0.1 X10'3 (0-0.2); BASOPHILS % (AUTO) 0.4 % (0-1); EOSINOPHILS # (AUTO) 0.3 X10'3 (0-0.9); EOSINOPHILS % (AUTO) 2.1 % (0-6); HEMATOCRIT 25.6 % (35.0-45.0); HEMOGLOBIN 8.1 g/dl (12.0-16.0); LYMPHOCYTES # (AUTO) 1.3 X10'3 (1.1-4.8); LYMPHOCYTES % (AUTO) 10.4 % (21-51); MEAN CORPUSCULAR HEMOGLOBIN 26.5 PG (27.0-31.0); MEAN CORPUSCULAR HGB CONC 31.7 g/dL (33.0-36.5); MEAN CORPUSCULAR VOLUME 83.5 FL (78-98); MEAN PLATELET VOLUME 7.6 FL (7.4-10.4); MONOCYTES # (AUTO) 0.8 X10'3 (0-0.9); MONOCYTES % (AUTO) 6.5 % (2-12); NEUTROPHILS # (AUTO) 9.8 X10'3 (1.8-7.7); NEUTROPHILS % (AUTO) 80.6 % (42-75); PLATELET COUNT 276 X10'3 (140-440); RED BLOOD COUNT 3.07 X10'6 (4.20-5.60); RED CELL DISTRIBUTION WIDTH 17.9 % (11.5-14.5); WHITE BLOOD COUNT 12.2 X10'3 (4.5-11.0)
--- NOTE | 2020-04-12 06:25 | NUR ---
Problems reprioritized. Patient report given, questions answered & plan of care reviewed with KAT Barnes.
[2020-04-12 06:46] LABS: ALANINE AMINOTRANSFERASE 18 U/L (12-78); ALBUMIN 2.3 G/DL (3.4-5.0); ALBUMIN/GLOBULIN RATIO 0.5 (1.1-1.5); ALKALINE PHOSPHATASE 151 IU/L (46-116); ANION GAP 8 (8-16); ASPARTATE AMINO TRANSFERASE 10 U/L (10-37); BILIRUBIN,TOTAL 0.4 MG/DL (0.1-1.0); BLOOD UREA NITROGEN 16 MG/DL (7-18); BUN/CREATININE RATIO 18.4 (6.6-38.0); CALCIUM 8.3 MG/DL (8.5-10.1); CHLORIDE 106 MMOL/L (99-107); CREATININE 0.87 MG/DL (0.40-0.90); GLUCOSE 114 MG/DL (70-104); MAGNESIUM 1.9 MG/DL (1.5-2.4); PHOSPHORUS 3.6 MG/DL (2.3-4.5); POTASSIUM 3.5 MMOL/L (3.5-5.1); SODIUM 141 MMOL/L (135-145); TOTAL CARBON DIOXIDE 26.6 MMOL/L (24-32); TOTAL PROTEIN 6.8 G/DL (6.4-8.2); eGFR 71 ML/MIN
[2020-04-12 06:50] LABS: % IRON SATURATION 5 % (11-46); IRON 14 UG/DL (49-151); TOTAL IRON BINDING CAPACITY 255 UG/DL (259-388)
[2020-04-12 07:06] LABS: FERRITIN 209 NG/ML (8-252)
[2020-04-12] MEDS: enoxaparin 40mg/0.4ml syringe SUBCUT SCH ×2 (07:47→09:38)
[2020-04-12] MEDS: gabapentin 300mg capsule PO SCH (07:58)
[2020-04-12] MEDS: furosemide 20 MG/2 ML vial IV SCH (07:58)
[2020-04-12] MEDS: ceFAZolin 2gm in dextrose, iso 50 ML IV SCH (07:58)
[2020-04-12] MEDS: docusate sod 100mg capsule PO SCH (07:58)
[2020-04-12] MEDS: busPIRone 15mg tablet PO SCH ×2 (07:59→14:20)
[2020-04-12] MEDS: lactobacillus rhamnosus 10,000 MMU CELLS/CAPSULE PO SCH (07:59)
[2020-04-12] MEDS: ARIPIPRAZOLE 15 MG TABLET PO SCH (07:59)
[2020-04-12] MEDS: nystatin 15 GM powder TP SCH (07:59)
[2020-04-12] MEDS: K and/or MAG REPLACEMENT MC SCH (08:00)
[2020-04-12] MEDS ORDERED: pantoprazole 40mg Tablet.DR PO SCH (08:00)
[2020-04-12 08:57] VITALS: BP 98/51
[2020-04-12] MEDS: HYDROcodone/acetaminophen 5mg/325mg tablet PO PRN (09:06)
[2020-04-12] MEDS ORDERED: FURO40TA4 PO (09:43)
[2020-04-12] MEDS ORDERED: PANT40TA4 PO (09:43)
[2020-04-12] MEDS ORDERED: CEPH250T PO (09:43)
[2020-04-12 12:40] VITALS: BP 135/74
--- NOTE | 2020-04-12 14:58 | NUR ---
Patient discharged home via [facility] into the care of [facility]. Patient left with all belongings, patient IV's removed, patient not on tele. Patient wound photos in chart. Patient appointment for woundcare made for the 04/14/20 at 1pm. Patient alert, oriented, and appropriate for discharge. Patient provided with teaching and supplies for dressing changes until .
== END 2020-04-12 15:00 | disposition home health service (06) | DRG 383 ==
LOC: ER 16:10 → ED HOLD 19:20 → SUR 3N 22:30
PROVIDERS: ADMIT Family Medicine; ATTEND Internal Medicine
DX: L03.311 Cellulitis of abdominal wall (principal); E11.40 Type 2 diabetes mellitus with diabetic neuropathy, unspecified; E87.2 Acidosis; E66.01 Morbid (severe) obesity due to excess calories; I27.81 Cor pulmonale (chronic); I10 Essential (primary) hypertension; F20.9 Schizophrenia, unspecified; F32.9 Major depressive disorder, single episode, unspecified; F41.9 Anxiety disorder, unspecified; Z86.73 Personal history of transient ischemic attack (TIA), and cerebral infarction without residual deficits; I25.10 Atherosclerotic heart disease of native coronary artery without angina pectoris; D64.9 Anemia, unspecified; L03.116 Cellulitis of left lower limb; E87.6 Hypokalemia; Z68.45 Body mass index [BMI] 70 or greater, adult
CPT/HCPCS: 36415; 80053; 80202; 81025; 82272; 82728; 82948; 83036; 83540; 83550; 83605; 83735; 83880; 84100; 84145; 84443; 85025; 85610; 85730; 87040; 87081; 94660; 94760; 97110; 97116; 97161; 97530; 99291; G0378; J1650; J1815; J1940; J3370; J7030; J7040

== ENCOUNTER 2020-04-14 13:10 | Day surgery (SDC) | payer MEDICAID ==
[~2020-04-14 13:10] MED LIST changes: -ACET-3067 PO; +CEPH250T PO; +CYCL5TAB PO; +FURO40TA4 PO; -LISI1TAB29 PO; -METF-900 PO; +METO-539 PO; +MIRT15TA PO; -NAPR-1144 PO; -NYST30CR2 TP; +PALI1.5T PO; +PANT40TA4 PO; +TOP100T PO; -TRAZ150T78 PO
== END 2020-04-14 14:30 | disposition home or self-care (01) ==
LOC: WOUND CARE 13:10
PROVIDERS: ATTEND Nurse Practitioner
DX: T81.89XD Other complications of procedures, not elsewhere classified, subsequent encounter (principal); L98.492 Non-pressure chronic ulcer of skin of other sites with fat layer exposed; L97.222 Non-pressure chronic ulcer of left calf with fat layer exposed; M19.90 Unspecified osteoarthritis, unspecified site; I25.10 Atherosclerotic heart disease of native coronary artery without angina pectoris; I10 Essential (primary) hypertension; E66.9 Obesity, unspecified; F41.9 Anxiety disorder, unspecified; F20.9 Schizophrenia, unspecified; F10.10 Alcohol abuse, uncomplicated; F17.200 Nicotine dependence, unspecified, uncomplicated; F32.9 Major depressive disorder, single episode, unspecified; Z86.73 Personal history of transient ischemic attack (TIA), and cerebral infarction without residual deficits; Z79.2 Long term (current) use of antibiotics; Z79.899 Other long term (current) drug therapy; Z79.84 Long term (current) use of oral hypoglycemic drugs; Z68.45 Body mass index [BMI] 70 or greater, adult; Y83.8 Other surgical procedures as the cause of abnormal reaction of the patient, or of later complication, without mention of misadventure at the time of the procedure
CPT/HCPCS: 97597

== ENCOUNTER 2020-04-21 13:01 | Day surgery (SDC) | payer MEDICAID ==
[2020-04-21] MEDS ORDERED: LIDOcaine 2% 5ml jelly ONE (13:26)
== END 2020-04-21 13:55 | disposition home or self-care (01) ==
LOC: WOUND CARE 13:01
PROVIDERS: ATTEND Nurse Practitioner
DX: T81.89XD Other complications of procedures, not elsewhere classified, subsequent encounter (principal); L98.492 Non-pressure chronic ulcer of skin of other sites with fat layer exposed; L97.222 Non-pressure chronic ulcer of left calf with fat layer exposed; M19.90 Unspecified osteoarthritis, unspecified site; I25.10 Atherosclerotic heart disease of native coronary artery without angina pectoris; I10 Essential (primary) hypertension; E66.9 Obesity, unspecified; F41.9 Anxiety disorder, unspecified; F20.9 Schizophrenia, unspecified; F10.10 Alcohol abuse, uncomplicated; F17.200 Nicotine dependence, unspecified, uncomplicated; F32.9 Major depressive disorder, single episode, unspecified; Z86.73 Personal history of transient ischemic attack (TIA), and cerebral infarction without residual deficits; Z79.2 Long term (current) use of antibiotics; Z79.899 Other long term (current) drug therapy; Z79.84 Long term (current) use of oral hypoglycemic drugs; Z68.45 Body mass index [BMI] 70 or greater, adult; Y83.8 Other surgical procedures as the cause of abnormal reaction of the patient, or of later complication, without mention of misadventure at the time of the procedure
CPT/HCPCS: 97597

== ENCOUNTER 2020-04-28 11:40 | Day surgery (SDC) | payer MEDICAID ==
[2020-04-28] MEDS ORDERED: LIDOcaine 2% 5ml jelly ONE (12:45)
== END 2020-04-28 13:13 | disposition home or self-care (01) ==
LOC: WOUND CARE 11:40
PROVIDERS: ATTEND Nurse Practitioner
DX: T81.89XD Other complications of procedures, not elsewhere classified, subsequent encounter (principal); L98.492 Non-pressure chronic ulcer of skin of other sites with fat layer exposed; L97.222 Non-pressure chronic ulcer of left calf with fat layer exposed; M19.90 Unspecified osteoarthritis, unspecified site; I25.10 Atherosclerotic heart disease of native coronary artery without angina pectoris; I10 Essential (primary) hypertension; E66.9 Obesity, unspecified; F41.9 Anxiety disorder, unspecified; F20.9 Schizophrenia, unspecified; F10.10 Alcohol abuse, uncomplicated; F32.9 Major depressive disorder, single episode, unspecified; F17.200 Nicotine dependence, unspecified, uncomplicated; Z86.73 Personal history of transient ischemic attack (TIA), and cerebral infarction without residual deficits; Z79.2 Long term (current) use of antibiotics; Z79.899 Other long term (current) drug therapy; Z79.84 Long term (current) use of oral hypoglycemic drugs; Z68.45 Body mass index [BMI] 70 or greater, adult; Y83.8 Other surgical procedures as the cause of abnormal reaction of the patient, or of later complication, without mention of misadventure at the time of the procedure
CPT/HCPCS: 97597

== ENCOUNTER 2020-05-10 10:35 | Day surgery (SDC) | payer MEDICAID | END 2020-05-10 12:33 | disposition home or self-care (01) | LOC: WOUND CARE 10:35 | PROVIDERS: ATTEND Nurse Practitioner | DX: T81.89XD Other complications of procedures, not elsewhere classified, subsequent encounter (principal); L98.492 Non-pressure chronic ulcer of skin of other sites with fat layer exposed; L97.222 Non-pressure chronic ulcer of left calf with fat layer exposed; L03.112 Cellulitis of left axilla; M19.90 Unspecified osteoarthritis, unspecified site; I25.10 Atherosclerotic heart disease of native coronary artery without angina pectoris; I10 Essential (primary) hypertension; E66.9 Obesity, unspecified; F41.9 Anxiety disorder, unspecified; F20.9 Schizophrenia, unspecified; F10.10 Alcohol abuse, uncomplicated; F32.9 Major depressive disorder, single episode, unspecified; F17.200 Nicotine dependence, unspecified, uncomplicated; Z86.73 Personal history of transient ischemic attack (TIA), and cerebral infarction without residual deficits; Z79.2 Long term (current) use of antibiotics; Z79.899 Other long term (current) drug therapy; Z79.84 Long term (current) use of oral hypoglycemic drugs; Z68.45 Body mass index [BMI] 70 or greater, adult; Y83.8 Other surgical procedures as the cause of abnormal reaction of the patient, or of later complication, without mention of misadventure at the time of the procedure | CPT/HCPCS: 97597 ==

== ENCOUNTER 2020-05-17 11:05 | Day surgery (SDC) | payer MEDICAID ==
[~2020-05-17 11:05] MED LIST changes: -FURO40TA4 PO
[2020-05-17] MEDS ORDERED: LIDOcaine 2% 5ml jelly ONE (11:39)
== END 2020-05-17 12:09 | disposition home or self-care (01) ==
LOC: WOUND CARE 11:05
PROVIDERS: ATTEND Nurse Practitioner
DX: T81.89XD Other complications of procedures, not elsewhere classified, subsequent encounter (principal); L98.492 Non-pressure chronic ulcer of skin of other sites with fat layer exposed; L97.222 Non-pressure chronic ulcer of left calf with fat layer exposed; L03.112 Cellulitis of left axilla; M19.90 Unspecified osteoarthritis, unspecified site; I25.10 Atherosclerotic heart disease of native coronary artery without angina pectoris; I10 Essential (primary) hypertension; E66.9 Obesity, unspecified; F41.9 Anxiety disorder, unspecified; F20.9 Schizophrenia, unspecified; F10.10 Alcohol abuse, uncomplicated; F32.9 Major depressive disorder, single episode, unspecified; F17.200 Nicotine dependence, unspecified, uncomplicated; Z86.73 Personal history of transient ischemic attack (TIA), and cerebral infarction without residual deficits; Z79.2 Long term (current) use of antibiotics; Z79.899 Other long term (current) drug therapy; Z79.84 Long term (current) use of oral hypoglycemic drugs; Z68.45 Body mass index [BMI] 70 or greater, adult; Y83.8 Other surgical procedures as the cause of abnormal reaction of the patient, or of later complication, without mention of misadventure at the time of the procedure
CPT/HCPCS: 87070; 87075; 87077; 87102; 87186; 97597

== ENCOUNTER 2020-05-24 11:01 | Day surgery (SDC) | payer MEDICAID ==
[2020-05-24] MEDS ORDERED: LIDOcaine 2% 5ml jelly ONE (11:23)
== END 2020-05-24 12:00 | disposition home or self-care (01) ==
LOC: WOUND CARE 11:01
PROVIDERS: ATTEND Nurse Practitioner
DX: T81.89XD Other complications of procedures, not elsewhere classified, subsequent encounter (principal); E11.622 Type 2 diabetes mellitus with other skin ulcer; L98.492 Non-pressure chronic ulcer of skin of other sites with fat layer exposed; L97.222 Non-pressure chronic ulcer of left calf with fat layer exposed; L03.112 Cellulitis of left axilla; E11.40 Type 2 diabetes mellitus with diabetic neuropathy, unspecified; M19.90 Unspecified osteoarthritis, unspecified site; I25.10 Atherosclerotic heart disease of native coronary artery without angina pectoris; I10 Essential (primary) hypertension; E66.01 Morbid (severe) obesity due to excess calories; F41.9 Anxiety disorder, unspecified; F20.9 Schizophrenia, unspecified; F10.10 Alcohol abuse, uncomplicated; F32.9 Major depressive disorder, single episode, unspecified; F17.200 Nicotine dependence, unspecified, uncomplicated; Z86.73 Personal history of transient ischemic attack (TIA), and cerebral infarction without residual deficits; Z79.2 Long term (current) use of antibiotics; Z79.899 Other long term (current) drug therapy; Z79.84 Long term (current) use of oral hypoglycemic drugs; Z68.45 Body mass index [BMI] 70 or greater, adult; Y83.8 Other surgical procedures as the cause of abnormal reaction of the patient, or of later complication, without mention of misadventure at the time of the procedure
CPT/HCPCS: 97597

== ENCOUNTER 2020-05-31 10:50 | Day surgery (SDC) | payer MEDICAID ==
[2020-05-31] MEDS ORDERED: LIDOcaine 2% 5ml jelly ONE (11:10)
== END 2020-05-31 11:58 | disposition home or self-care (01) ==
LOC: WOUND CARE 10:50
PROVIDERS: ATTEND Nurse Practitioner
DX: T81.89XD Other complications of procedures, not elsewhere classified, subsequent encounter (principal); E11.622 Type 2 diabetes mellitus with other skin ulcer; L98.492 Non-pressure chronic ulcer of skin of other sites with fat layer exposed; L97.222 Non-pressure chronic ulcer of left calf with fat layer exposed; E11.40 Type 2 diabetes mellitus with diabetic neuropathy, unspecified; M19.90 Unspecified osteoarthritis, unspecified site; I25.10 Atherosclerotic heart disease of native coronary artery without angina pectoris; I10 Essential (primary) hypertension; E66.01 Morbid (severe) obesity due to excess calories; F41.9 Anxiety disorder, unspecified; F20.9 Schizophrenia, unspecified; F10.10 Alcohol abuse, uncomplicated; F32.9 Major depressive disorder, single episode, unspecified; F17.200 Nicotine dependence, unspecified, uncomplicated; Z86.73 Personal history of transient ischemic attack (TIA), and cerebral infarction without residual deficits; Z79.2 Long term (current) use of antibiotics; Z79.899 Other long term (current) drug therapy; Z79.84 Long term (current) use of oral hypoglycemic drugs; Z68.45 Body mass index [BMI] 70 or greater, adult; Y83.8 Other surgical procedures as the cause of abnormal reaction of the patient, or of later complication, without mention of misadventure at the time of the procedure
CPT/HCPCS: 97597

== ENCOUNTER 2020-06-23 11:00 | Day surgery (SDC) | payer MEDICAID ==
[2020-06-23] MEDS ORDERED: LIDOcaine 2% 5ml jelly ONE (11:59)
== END 2020-06-23 12:55 | disposition home or self-care (01) ==
LOC: WOUND CARE 11:00
PROVIDERS: ATTEND Nurse Practitioner
DX: T81.89XD Other complications of procedures, not elsewhere classified, subsequent encounter (principal); E11.622 Type 2 diabetes mellitus with other skin ulcer; L98.492 Non-pressure chronic ulcer of skin of other sites with fat layer exposed; L97.222 Non-pressure chronic ulcer of left calf with fat layer exposed; E11.40 Type 2 diabetes mellitus with diabetic neuropathy, unspecified; M19.90 Unspecified osteoarthritis, unspecified site; I25.10 Atherosclerotic heart disease of native coronary artery without angina pectoris; I10 Essential (primary) hypertension; E66.01 Morbid (severe) obesity due to excess calories; F41.9 Anxiety disorder, unspecified; F20.9 Schizophrenia, unspecified; F10.10 Alcohol abuse, uncomplicated; F32.9 Major depressive disorder, single episode, unspecified; F17.200 Nicotine dependence, unspecified, uncomplicated; Z86.73 Personal history of transient ischemic attack (TIA), and cerebral infarction without residual deficits; Z79.2 Long term (current) use of antibiotics; Z79.899 Other long term (current) drug therapy; Z79.84 Long term (current) use of oral hypoglycemic drugs; Z68.45 Body mass index [BMI] 70 or greater, adult; Y83.8 Other surgical procedures as the cause of abnormal reaction of the patient, or of later complication, without mention of misadventure at the time of the procedure
CPT/HCPCS: 97597

== ENCOUNTER 2020-06-30 11:10 | Day surgery (SDC) | payer MEDICAID ==
[2020-06-30] MEDS ORDERED: LIDOcaine 2% 5ml jelly ONE (11:41)
== END 2020-06-30 12:46 | disposition home or self-care (01) ==
LOC: WOUND CARE 11:10
PROVIDERS: ATTEND Nurse Practitioner
DX: T81.89XD Other complications of procedures, not elsewhere classified, subsequent encounter (principal); E11.622 Type 2 diabetes mellitus with other skin ulcer; L98.492 Non-pressure chronic ulcer of skin of other sites with fat layer exposed; L97.222 Non-pressure chronic ulcer of left calf with fat layer exposed; E11.40 Type 2 diabetes mellitus with diabetic neuropathy, unspecified; M19.90 Unspecified osteoarthritis, unspecified site; I25.10 Atherosclerotic heart disease of native coronary artery without angina pectoris; I10 Essential (primary) hypertension; E66.01 Morbid (severe) obesity due to excess calories; F41.9 Anxiety disorder, unspecified; F20.9 Schizophrenia, unspecified; F10.10 Alcohol abuse, uncomplicated; F32.9 Major depressive disorder, single episode, unspecified; F17.200 Nicotine dependence, unspecified, uncomplicated; Z86.73 Personal history of transient ischemic attack (TIA), and cerebral infarction without residual deficits; Z79.2 Long term (current) use of antibiotics; Z79.899 Other long term (current) drug therapy; Z79.84 Long term (current) use of oral hypoglycemic drugs; Z68.45 Body mass index [BMI] 70 or greater, adult; Y83.8 Other surgical procedures as the cause of abnormal reaction of the patient, or of later complication, without mention of misadventure at the time of the procedure
CPT/HCPCS: 97597

== ENCOUNTER 2020-07-12 11:45 | Day surgery (SDC) | payer MEDICAID ==
[~2020-07-12 11:45] MED LIST changes: -PANT40TA4 PO; +PANT40TA54 PO
[2020-07-12] MEDS ORDERED: LIDOcaine 2% 5ml jelly ONE ×2 (12:07)
== END 2020-07-12 12:30 | disposition home or self-care (01) ==
LOC: WOUND CARE 11:45
PROVIDERS: ATTEND Nurse Practitioner
DX: T81.89XD Other complications of procedures, not elsewhere classified, subsequent encounter (principal); E11.622 Type 2 diabetes mellitus with other skin ulcer; L98.492 Non-pressure chronic ulcer of skin of other sites with fat layer exposed; L97.222 Non-pressure chronic ulcer of left calf with fat layer exposed; E11.40 Type 2 diabetes mellitus with diabetic neuropathy, unspecified; M19.90 Unspecified osteoarthritis, unspecified site; I25.10 Atherosclerotic heart disease of native coronary artery without angina pectoris; I10 Essential (primary) hypertension; E66.01 Morbid (severe) obesity due to excess calories; F41.9 Anxiety disorder, unspecified; F20.9 Schizophrenia, unspecified; F10.10 Alcohol abuse, uncomplicated; F32.9 Major depressive disorder, single episode, unspecified; F17.200 Nicotine dependence, unspecified, uncomplicated; Z86.73 Personal history of transient ischemic attack (TIA), and cerebral infarction without residual deficits; Z79.2 Long term (current) use of antibiotics; Z79.899 Other long term (current) drug therapy; Z79.84 Long term (current) use of oral hypoglycemic drugs; Z68.45 Body mass index [BMI] 70 or greater, adult; Y83.8 Other surgical procedures as the cause of abnormal reaction of the patient, or of later complication, without mention of misadventure at the time of the procedure
CPT/HCPCS: 97597; 97598

== ENCOUNTER 2020-07-21 10:20 | Day surgery (SDC) | payer MEDICAID ==
[2020-07-21] MEDS ORDERED: LIDOcaine 2% 5ml jelly ONE ×2 (11:01)
== END 2020-07-21 11:52 | disposition home or self-care (01) ==
LOC: WOUND CARE 10:20
PROVIDERS: ATTEND Nurse Practitioner
DX: T81.89XD Other complications of procedures, not elsewhere classified, subsequent encounter (principal); E11.622 Type 2 diabetes mellitus with other skin ulcer; L98.492 Non-pressure chronic ulcer of skin of other sites with fat layer exposed; L97.222 Non-pressure chronic ulcer of left calf with fat layer exposed; E11.40 Type 2 diabetes mellitus with diabetic neuropathy, unspecified; M19.90 Unspecified osteoarthritis, unspecified site; I25.10 Atherosclerotic heart disease of native coronary artery without angina pectoris; I10 Essential (primary) hypertension; E66.01 Morbid (severe) obesity due to excess calories; F41.9 Anxiety disorder, unspecified; F20.9 Schizophrenia, unspecified; F10.10 Alcohol abuse, uncomplicated; F32.9 Major depressive disorder, single episode, unspecified; F17.200 Nicotine dependence, unspecified, uncomplicated; Z86.73 Personal history of transient ischemic attack (TIA), and cerebral infarction without residual deficits; Z79.2 Long term (current) use of antibiotics; Z79.899 Other long term (current) drug therapy; Z79.84 Long term (current) use of oral hypoglycemic drugs; Z68.45 Body mass index [BMI] 70 or greater, adult; Y83.8 Other surgical procedures as the cause of abnormal reaction of the patient, or of later complication, without mention of misadventure at the time of the procedure
CPT/HCPCS: 97597

== ENCOUNTER 2020-07-24 17:40 | Emergency (ER) | payer MEDICAID ==
[~2020-07-24] VITALS: Ht 160 cm; Wt 202.3 kg
[2020-07-24 19:10] LABS: BASOPHILS # (AUTO) 0.2 X10'3 (0-0.2); BASOPHILS % (AUTO) 1.8 % (0-1); EOSINOPHILS # (AUTO) 0.1 X10'3 (0-0.9); EOSINOPHILS % (AUTO) 1.2 % (0-6); HEMATOCRIT 31.2 % (35.0-45.0); HEMOGLOBIN 10.1 g/dl (12.0-16.0); LYMPHOCYTES # (AUTO) 1.1 X10'3 (1.1-4.8); LYMPHOCYTES % (AUTO) 9.7 % (21-51); MEAN CORPUSCULAR HEMOGLOBIN 27.4 PG (27.0-31.0); MEAN CORPUSCULAR HGB CONC 32.5 g/dL (33.0-36.5); MEAN CORPUSCULAR VOLUME 84.3 FL (78-98); MEAN PLATELET VOLUME 7.8 FL (7.4-10.4); MONOCYTES # (AUTO) 0.5 X10'3 (0-0.9); MONOCYTES % (AUTO) 4.3 % (2-12); NEUTROPHILS # (AUTO) 9.7 X10'3 (1.8-7.7); PLATELET COUNT 184 X10'3 (140-440); RED CELL DISTRIBUTION WIDTH 17.8 % (11.5-14.5); WHITE BLOOD COUNT 11.7 X10'3 (4.5-11.0)
[2020-07-24 19:11] LABS: ALANINE AMINOTRANSFERASE 20 U/L (12-78); ALBUMIN 3.3 G/DL (3.4-5.0); ALBUMIN/GLOBULIN RATIO 0.8 (1.1-1.5); ALKALINE PHOSPHATASE 68 IU/L (46-116); ANION GAP 12 (8-16); ASPARTATE AMINO TRANSFERASE 6 U/L (10-37); BILIRUBIN,TOTAL 0.4 MG/DL (0.1-1.0); BLOOD UREA NITROGEN 16 MG/DL (7-18); BUN/CREATININE RATIO 18.2 (6.6-38.0); CHLORIDE 103 MMOL/L (99-107); CREATININE 0.88 MG/DL (0.40-0.90); GLUCOSE 129 MG/DL (70-104); SODIUM 140 MMOL/L (135-145); TOTAL CARBON DIOXIDE 25.1 MMOL/L (24-32); TOTAL PROTEIN 7.4 G/DL (6.4-8.2); eGFR 70 ML/MIN
[2020-07-24] MEDS ORDERED: CEPH500C5 PO (19:35)
[2020-07-24] MEDS ORDERED: cephalexin 500mg capsule PO ONE (19:35)
[2020-07-24] MEDS ORDERED: potassium Cl 20 mEq SR tablet PO ONE (19:40)
[2020-07-24 19:50] VITALS: BP 137/72
== END 2020-07-24 20:17 | disposition home or self-care (01) ==
LOC: ER 17:41
DX: L03.311 Cellulitis of abdominal wall (principal); E87.6 Hypokalemia; I10 Essential (primary) hypertension; F41.9 Anxiety disorder, unspecified; F31.9 Bipolar disorder, unspecified; F20.9 Schizophrenia, unspecified; Z98.890 Other specified postprocedural states; Z79.2 Long term (current) use of antibiotics; Z79.899 Other long term (current) drug therapy
CPT/HCPCS: 36415; 80053; 84145; 85025; 99283

== ENCOUNTER 2020-07-28 11:35 | Day surgery (SDC) | payer MEDICAID ==
[~2020-07-28 11:35] MED LIST changes: +CEPH500C5 PO
[2020-07-28] MEDS ORDERED: LIDOcaine 2% 5ml jelly ONE (12:20)
== END 2020-07-28 13:26 | disposition home or self-care (01) ==
LOC: WOUND CARE 11:35
PROVIDERS: ATTEND Nurse Practitioner
DX: T81.89XD Other complications of procedures, not elsewhere classified, subsequent encounter (principal); S31.109D Unspecified open wound of abdominal wall, unspecified quadrant without penetration into peritoneal cavity, subsequent encounter; E11.622 Type 2 diabetes mellitus with other skin ulcer; L98.492 Non-pressure chronic ulcer of skin of other sites with fat layer exposed; L97.222 Non-pressure chronic ulcer of left calf with fat layer exposed; E11.40 Type 2 diabetes mellitus with diabetic neuropathy, unspecified; M19.90 Unspecified osteoarthritis, unspecified site; I25.10 Atherosclerotic heart disease of native coronary artery without angina pectoris; I10 Essential (primary) hypertension; E66.01 Morbid (severe) obesity due to excess calories; F41.9 Anxiety disorder, unspecified; F20.9 Schizophrenia, unspecified; F10.10 Alcohol abuse, uncomplicated; F17.200 Nicotine dependence, unspecified, uncomplicated; F32.9 Major depressive disorder, single episode, unspecified; Z86.73 Personal history of transient ischemic attack (TIA), and cerebral infarction without residual deficits; Z79.2 Long term (current) use of antibiotics; Z79.899 Other long term (current) drug therapy; Z79.84 Long term (current) use of oral hypoglycemic drugs; Z68.45 Body mass index [BMI] 70 or greater, adult; Y83.8 Other surgical procedures as the cause of abnormal reaction of the patient, or of later complication, without mention of misadventure at the time of the procedure; X58.XXXD Exposure to other specified factors, subsequent encounter
CPT/HCPCS: 97597

== ENCOUNTER 2020-08-12 12:30 | Day surgery (SDC) | payer MEDICAID ==
[2020-08-12] MEDS ORDERED: LIDOcaine 2% 5ml jelly ONE (12:57)
== END 2020-08-12 13:49 | disposition home or self-care (01) ==
LOC: WOUND CARE 12:30
PROVIDERS: ATTEND Nurse Practitioner
DX: T81.89XD Other complications of procedures, not elsewhere classified, subsequent encounter (principal); S31.109D Unspecified open wound of abdominal wall, unspecified quadrant without penetration into peritoneal cavity, subsequent encounter; E11.622 Type 2 diabetes mellitus with other skin ulcer; L98.492 Non-pressure chronic ulcer of skin of other sites with fat layer exposed; L97.222 Non-pressure chronic ulcer of left calf with fat layer exposed; E11.40 Type 2 diabetes mellitus with diabetic neuropathy, unspecified; M19.90 Unspecified osteoarthritis, unspecified site; I25.10 Atherosclerotic heart disease of native coronary artery without angina pectoris; I10 Essential (primary) hypertension; E66.01 Morbid (severe) obesity due to excess calories; F41.9 Anxiety disorder, unspecified; F20.9 Schizophrenia, unspecified; F10.10 Alcohol abuse, uncomplicated; F17.200 Nicotine dependence, unspecified, uncomplicated; F32.9 Major depressive disorder, single episode, unspecified; Z86.73 Personal history of transient ischemic attack (TIA), and cerebral infarction without residual deficits; Z98.890 Other specified postprocedural states; Z79.2 Long term (current) use of antibiotics; Z79.899 Other long term (current) drug therapy; Z79.84 Long term (current) use of oral hypoglycemic drugs; Z68.45 Body mass index [BMI] 70 or greater, adult; Y83.8 Other surgical procedures as the cause of abnormal reaction of the patient, or of later complication, without mention of misadventure at the time of the procedure; X58.XXXD Exposure to other specified factors, subsequent encounter
CPT/HCPCS: 97597

== ENCOUNTER 2020-08-19 13:45 | Outpatient (CLI) | payer MEDICAID ==
[2020-08-19] MEDS ORDERED: LIDOcaine 2% 5ml jelly ONE (14:16)
== END 2020-08-19 15:30 | disposition home or self-care (01) ==
LOC: WOUND CARE 13:45
PROVIDERS: ATTEND Nurse Practitioner
DX: T81.89XD Other complications of procedures, not elsewhere classified, subsequent encounter (principal); S31.109D Unspecified open wound of abdominal wall, unspecified quadrant without penetration into peritoneal cavity, subsequent encounter; E11.622 Type 2 diabetes mellitus with other skin ulcer; L98.492 Non-pressure chronic ulcer of skin of other sites with fat layer exposed; L97.222 Non-pressure chronic ulcer of left calf with fat layer exposed; E11.40 Type 2 diabetes mellitus with diabetic neuropathy, unspecified; M19.90 Unspecified osteoarthritis, unspecified site; I25.10 Atherosclerotic heart disease of native coronary artery without angina pectoris; I10 Essential (primary) hypertension; E66.01 Morbid (severe) obesity due to excess calories; F41.9 Anxiety disorder, unspecified; F20.9 Schizophrenia, unspecified; F10.10 Alcohol abuse, uncomplicated; F17.200 Nicotine dependence, unspecified, uncomplicated; F32.9 Major depressive disorder, single episode, unspecified; Z86.73 Personal history of transient ischemic attack (TIA), and cerebral infarction without residual deficits; Z98.890 Other specified postprocedural states; Z79.2 Long term (current) use of antibiotics; Z79.899 Other long term (current) drug therapy; Z79.84 Long term (current) use of oral hypoglycemic drugs; Z68.45 Body mass index [BMI] 70 or greater, adult; Y83.8 Other surgical procedures as the cause of abnormal reaction of the patient, or of later complication, without mention of misadventure at the time of the procedure; X58.XXXD Exposure to other specified factors, subsequent encounter
CPT/HCPCS: 97597

== ENCOUNTER → 2020-08-29 | Outpatient (CLI) | payer MEDICAID ==
[~2020-08-29] MED LIST changes: +ACET-1059 PO; +AMOX-580 PO; +ARIP30TA PO; +ATOR20TA66 PO; +BUSP30TA2 PO; +COLL30OI TOP; +DOXY-224 PO; +LIDOcaine 2% 5ml jelly ONE; +METO25TA6 PO; +MIRT-116 PO; -MIRT15TA PO; +NICO-731 TD; +PALI6TAB PO
== END | disposition home or self-care (01) ==
LOC: EDSTATUS 08-26 10:40 → WOUND CARE 11:30
PROVIDERS: ATTEND Nurse Practitioner Family
DX: T81.89XD Other complications of procedures, not elsewhere classified, subsequent encounter (principal); S31.109D Unspecified open wound of abdominal wall, unspecified quadrant without penetration into peritoneal cavity, subsequent encounter; E11.622 Type 2 diabetes mellitus with other skin ulcer; L98.492 Non-pressure chronic ulcer of skin of other sites with fat layer exposed; L97.222 Non-pressure chronic ulcer of left calf with fat layer exposed; E11.40 Type 2 diabetes mellitus with diabetic neuropathy, unspecified; M19.90 Unspecified osteoarthritis, unspecified site; I25.10 Atherosclerotic heart disease of native coronary artery without angina pectoris; I10 Essential (primary) hypertension; G47.33 Obstructive sleep apnea (adult) (pediatric); M79.89 Other specified soft tissue disorders; E66.01 Morbid (severe) obesity due to excess calories; F41.9 Anxiety disorder, unspecified; E78.5 Hyperlipidemia, unspecified; F20.9 Schizophrenia, unspecified; F10.10 Alcohol abuse, uncomplicated; F32.9 Major depressive disorder, single episode, unspecified; F17.210 Nicotine dependence, cigarettes, uncomplicated; Z98.890 Other specified postprocedural states; Z86.73 Personal history of transient ischemic attack (TIA), and cerebral infarction without residual deficits; Z79.2 Long term (current) use of antibiotics; Z79.899 Other long term (current) drug therapy; Z79.84 Long term (current) use of oral hypoglycemic drugs; Z68.45 Body mass index [BMI] 70 or greater, adult; Z86.14 Personal history of Methicillin resistant Staphylococcus aureus infection; Y83.8 Other surgical procedures as the cause of abnormal reaction of the patient, or of later complication, without mention of misadventure at the time of the procedure; X58.XXXD Exposure to other specified factors, subsequent encounter
CPT/HCPCS: 97597; 97598

== ENCOUNTER 2020-09-09 11:43 | Inpatient (IN) | payer MEDICAID ==
[~2020-09-09] VITALS: Ht 160 cm; Wt 204.5 kg
[~2020-09-09 11:43] MED LIST changes: -ACET-1059 PO; -AMOX-580 PO; -ARIP30TA PO; -ATOR20TA66 PO; -BUSP30TA2 PO; -COLL30OI TOP; -DOXY-224 PO; -LIDOcaine 2% 5ml jelly ONE; -METO25TA6 PO; -NICO-731 TD; -PALI6TAB PO
[2020-09-09] MEDS ORDERED: LIDOcaine 2% 5ml jelly ONE (12:26)
[2020-09-09] MEDS ORDERED: magnesium 2GM in 50ml NS 50 ML IV PRN ×2 (14:40→18:00)
[2020-09-09] MEDS ORDERED: mag hydrox/Alum hydrox/simeth 30ml oral suspension PO PRN (14:40)
[2020-09-09] MEDS ORDERED: potassium CL 10mEq/100ml bag 100 ML IV PRN ×4 (14:40→18:00)
[2020-09-09] MEDS ORDERED: ondansetron/PF 4mg/2ml inj IV PRN (14:40)
[2020-09-09] MEDS ORDERED: acetaminophen 325mg tablet PO PRN ×2 (14:40)
[2020-09-09] MEDS ORDERED: magnesium hydroxide 30ml (MOM) UD suspension PO PRN (14:40)
[2020-09-09] MEDS ORDERED: magnesium Cl slow-release 64mg tablet PO PRN ×2 (14:40→18:00)
[2020-09-09] MEDS ORDERED: HYDROcodone/acetaminophen 5mg/325mg tablet PO PRN (14:40)
[2020-09-09] MEDS ORDERED: potassium Cl 20 mEq SR tablet PO PRN ×3 (14:40→18:00)
[2020-09-09] MEDS ORDERED: magnesium 4gm in 100ml NS 100 ML IV PRN ×2 (14:40→18:00)
[2020-09-09] MEDS ORDERED: bisacodyl 10mg suppository rectal RC PRN (14:40)
--- NOTE | 2020-09-09 15:00 | NUR ---
RECD REPORT FROM [facility]. STATES ONLY THE ABD DRG SHOULD BE CHANGED, LEAVE ALL OTHER DRG ALONE, OK FOR 7 DAYS. WILL MAKE MISC ORDER.
[2020-09-09 15:34] LABS: BASOPHILS % (AUTO) 0.4 % (0-1); EOSINOPHILS # (AUTO) 0.2 X10'3 (0-0.9); EOSINOPHILS % (AUTO) 1.3 % (0-6); HEMOGLOBIN 9.6 g/dl (12.0-16.0); LYMPHOCYTES # (AUTO) 1.5 X10'3 (1.1-4.8); LYMPHOCYTES % (AUTO) 12.5 % (21-51); MEAN CORPUSCULAR HEMOGLOBIN 27.8 PG (27.0-31.0); MEAN CORPUSCULAR HGB CONC 32.2 g/dL (33.0-36.5); MEAN CORPUSCULAR VOLUME 86.4 FL (78-98); MEAN PLATELET VOLUME 7.5 FL (7.4-10.4); MONOCYTES # (AUTO) 0.5 X10'3 (0-0.9); MONOCYTES % (AUTO) 4.4 % (2-12); NEUTROPHILS % (AUTO) 81.4 % (42-75); PLATELET COUNT 228 X10'3 (140-440); RED BLOOD COUNT 3.47 X10'6 (4.20-5.60); RED CELL DISTRIBUTION WIDTH 18.5 % (11.5-14.5); WHITE BLOOD COUNT 12.3 X10'3 (4.5-11.0)
[2020-09-09 15:48] LABS: PARTIAL THROMBOPLASTIN TIME 28 SECONDS (22-32)
[2020-09-09 15:59] LABS: ALANINE AMINOTRANSFERASE 15 U/L (12-78); ALBUMIN 3.2 G/DL (3.4-5.0); ALBUMIN/GLOBULIN RATIO 0.8 (1.1-1.5); ALKALINE PHOSPHATASE 78 IU/L (46-116); ANION GAP 10 (8-16); ASPARTATE AMINO TRANSFERASE 7 U/L (10-37); BILIRUBIN,TOTAL 0.5 MG/DL (0.1-1.0); BLOOD UREA NITROGEN 15 MG/DL (7-18); CALCIUM 8.2 MG/DL (8.5-10.1); CHLORIDE 105 MMOL/L (99-107); CREATININE 0.79 MG/DL (0.40-0.90); GLUCOSE 89 MG/DL (70-104); MAGNESIUM 1.8 MG/DL (1.5-2.4); PHOSPHORUS 3.4 MG/DL (2.3-4.5); POTASSIUM 3.2 MMOL/L (3.5-5.1); SODIUM 139 MMOL/L (135-145); TOTAL CARBON DIOXIDE 24.1 MMOL/L (24-32); TOTAL PROTEIN 7.2 G/DL (6.4-8.2); eGFR 80 ML/MIN
[2020-09-09] MEDS ORDERED: METO25TA6 PO (16:17)
[2020-09-09] MEDS: piperacillin/tazo 3.375gm/50ml 50 ML IV SCH (16:21)
[2020-09-09] MEDS ORDERED: vancomycin/NS 1 GM ADD-VANTAGE 250 ML X 1 DOSE IV ONE (16:50)
[2020-09-09] MEDS ORDERED: BUSP30TA2 PO (17:25)
[2020-09-09] MEDS ORDERED: PALI6TAB PO (17:25)
[2020-09-09] MEDS ORDERED: COLL30OI TOP (17:25)
[2020-09-09] MEDS ORDERED: ACET-1059 PO (17:25)
[2020-09-09] MEDS ORDERED: ARIP30TA PO (17:25)
--- NOTE | 2020-09-09 17:53 | NUR ---
PAGER ID: [phone] MESSAGE: BELA ONOFRE. NEED K REP PROTOCOL . SURGICAL [facility] [id number]
[2020-09-09 18:00] VITALS: BP 145/73
--- NOTE | 2020-09-09 18:39 | NUR ---
Problems reprioritized. Patient report given, questions answered & plan of care reviewed with JORGE ALBERTO AZUL RN.
--- NOTE | 2020-09-09 18:40 | NUR ---
Patient in room [facility] 345. I have received report from KIYA STEPHENS and had the opportunity to ask questions and assume patient care.
[2020-09-09] MEDS: K and/or MAG REPLACEMENT MC SCH ×2 (20:00)
[2020-09-09] MEDS ORDERED: temazepam 15mg capsule PO PRN (21:00)
[2020-09-09] MEDS: potassium Cl 20 mEq SR tablet PO PRN (21:14)
[2020-09-10] VITALS: BP 140/61
[2020-09-10] MEDS: piperacillin/tazo 3.375gm/50ml 50 ML IV SCH ×3 (00:33→17:42)
[2020-09-10] MEDS: vancomycin/NS 1 GM ADD-VANTAGE 250 ML X 1 DOSE IV SCH ×3 (00:39→16:14)
[2020-09-10] MEDS: potassium Cl 20 mEq SR tablet PO PRN (00:46)
[2020-09-10 05:07] LABS: BASOPHILS # (AUTO) 0.1 X10'3 (0-0.2); BASOPHILS % (AUTO) 0.6 % (0-1); EOSINOPHILS # (AUTO) 0.2 X10'3 (0-0.9); EOSINOPHILS % (AUTO) 1.8 % (0-6); HEMATOCRIT 28.7 % (35.0-45.0); LYMPHOCYTES # (AUTO) 1.5 X10'3 (1.1-4.8); LYMPHOCYTES % (AUTO) 11.9 % (21-51); MEAN CORPUSCULAR HEMOGLOBIN 26.9 PG (27.0-31.0); MEAN CORPUSCULAR HGB CONC 31.5 g/dL (33.0-36.5); MEAN CORPUSCULAR VOLUME 85.4 FL (78-98); MEAN PLATELET VOLUME 7.9 FL (7.4-10.4); MONOCYTES # (AUTO) 0.7 X10'3 (0-0.9); MONOCYTES % (AUTO) 5.5 % (2-12); NEUTROPHILS % (AUTO) 80.2 % (42-75); PLATELET COUNT 245 X10'3 (140-440); RED BLOOD COUNT 3.36 X10'6 (4.20-5.60); RED CELL DISTRIBUTION WIDTH 18.5 % (11.5-14.5); WHITE BLOOD COUNT 12.4 X10'3 (4.5-11.0)
[2020-09-10 05:18] LABS: ALANINE AMINOTRANSFERASE 15 U/L (12-78); ALBUMIN 2.8 G/DL (3.4-5.0); ALBUMIN/GLOBULIN RATIO 0.7 (1.1-1.5); ALKALINE PHOSPHATASE 79 IU/L (46-116); ANION GAP 8 (8-16); ASPARTATE AMINO TRANSFERASE 3 U/L (10-37); BILIRUBIN,TOTAL 0.4 MG/DL (0.1-1.0); BLOOD UREA NITROGEN 18 MG/DL (7-18); BUN/CREATININE RATIO 22.5 (6.6-38.0); CALCIUM 8.4 MG/DL (8.5-10.1); CHLORIDE 107 MMOL/L (99-107); CHOL/HDL RATIO 4.1 (0.00-4.99); CHOLESTEROL 148 MG/DL (0-200); GLUCOSE 118 MG/DL (70-104); HDL CHOLESTEROL 36 MG/DL (35-60); LDL CHOLESTEROL 102 MG/DL (50-100); MAGNESIUM 1.7 MG/DL (1.5-2.4); POTASSIUM 3.9 MMOL/L (3.5-5.1); SODIUM 139 MMOL/L (135-145); TOTAL CARBON DIOXIDE 24.3 MMOL/L (24-32); TOTAL PROTEIN 6.9 G/DL (6.4-8.2); TRIGLYCERIDES 80 MG/DL (20-135); eGFR 79 ML/MIN
--- NOTE | 2020-09-10 06:34 | NUR ---
Problems reprioritized. Patient report given, questions answered & plan of care reviewed with MITCH STEPHENS.
--- NOTE | 2020-09-10 06:45 | NUR ---
Patient in room [facility] 345. I have received report from KAT Holm and had the opportunity to ask questions and assume patient care.
[2020-09-10 08:00] VITALS: BP 142/72
[2020-09-10] MEDS: K and/or MAG REPLACEMENT MC SCH ×4 (08:00→20:00)
[2020-09-10] MEDS: enoxaparin 40mg/0.4ml syringe SUBCUT SCH (08:49)
[2020-09-10] MEDS: HYDROcodone/acetaminophen 10/325mg tab PO PRN ×2 (09:50→15:19)
[2020-09-10] MEDS ORDERED: pneumococcal 23-VAL P-sac vacc 25 mcg/0.5ml vial IMVAC ONE (10:00)
[2020-09-10 11:00] VITALS: BP 130/71
[2020-09-10 12:00] VITALS: BP 141/70
--- NOTE | 2020-09-10 13:47 | NUR ---
Pt requesting home medication for anxiety. informed. PAGER ID: [phone] MESSAGE: [facility]. Pt: Kemal. RM: 345-B Can you please review and update home meds? pt requesting Abilify and Buspirone now. Thanks.
--- NOTE | 2020-09-10 15:58 | NUR ---
PAGER ID: [phone] MESSAGE: [facility] 0560. Pt: Kemal. RM: 345-B Pt continues to be very anxious. Can you pls address her med rec? thanks
[2020-09-10] MEDS ORDERED: VANCOMYCIN LEVEL IV ONE (16:30)
--- NOTE | 2020-09-10 16:38 | NUR ---
Vanco and zosyn schedule one hour apart. pt have only one PIV available, pt is a hard stick. intent to place a second IV x2 with not success. vanco was administered around 1600. stopped prior blood draw for vanco trough. pharmacy informed and okayed.
[2020-09-10 18:00] VITALS: BP 118/52
--- NOTE | 2020-09-10 18:24 | NUR ---
Patient in room [facility] 345. I have received report from Kylah STEPHENS and had the opportunity to ask questions and assume patient care.
--- NOTE | 2020-09-10 18:24 | NUR ---
Problems reprioritized. Patient report given, questions answered & plan of care reviewed with KAT Sol. Pt continues to anxious. Med rec has not been addressed yet. page out to Dr. Crocker. PAGER ID: [phone] MESSAGE: [facility] 6334. Pt: Kemal. RM: 345-A. sorry to keep paging, but pt is getting more anxious and also asking for nicotine patch. its change of shift, Sweta will be the incoming nurse. thanks.
[2020-09-10] MEDS ORDERED: LORazepam 1 MG tablet PO PRN (18:50)
[2020-09-10] MEDS: lactobacillus rhamnosus 10,000 MMU CELLS/CAPSULE PO SCH (19:32)
[2020-09-10] MEDS: nicotine 14mg patch - 24hr TD SCH (19:33)
--- NOTE | 2020-09-10 20:12 | NUR ---
Pt sleeps with CPAP. Addendum: 09/10/20 at 2223 by Blanca BRIGGS Amended: Links added.
[2020-09-11] MEDS: VANCOmycin 1250MG/NS 250ml Bag 250 ML IV SCH ×3 (00:18→18:34)
[2020-09-11 00:36] VITALS: BP 139/77
[2020-09-11] MEDS: piperacillin/tazo 3.375gm/50ml 50 ML IV SCH ×3 (02:32→20:37)
--- NOTE | 2020-09-11 06:00 | NUR ---
Student documentation: I have reviewed and agree with all interventions, assessments performed and documented by MARSHA BURGOS. Student Medication Administration: For this medication-pass time frame, all medication were reviewed, dispensed, administered and documented per hospital policy by MARSHA BURGOS.
--- NOTE | 2020-09-11 06:05 | NUR ---
Problems reprioritized. Patient report given, questions answered & plan of care reviewed with Vidya STEPHENS.
--- NOTE | 2020-09-11 06:05 | NUR ---
Patient in room [facility] 345B. I have received report from AKT MUÑOZ and had the opportunity to ask questions and assume patient care.
[2020-09-11 07:00] VITALS: BP 123/66
[2020-09-11 07:04] LABS: ALANINE AMINOTRANSFERASE 11 U/L (12-78); ALBUMIN 2.7 G/DL (3.4-5.0); ALBUMIN/GLOBULIN RATIO 0.6 (1.1-1.5); ALKALINE PHOSPHATASE 76 IU/L (46-116); ANION GAP 10 (8-16); ASPARTATE AMINO TRANSFERASE 7 U/L (10-37); BILIRUBIN,TOTAL 0.5 MG/DL (0.1-1.0); BLOOD UREA NITROGEN 19 MG/DL (7-18); BUN/CREATININE RATIO 27.9 (6.6-38.0); CALCIUM 8.4 MG/DL (8.5-10.1); CHLORIDE 106 MMOL/L (99-107); CREATININE 0.68 MG/DL (0.40-0.90); GLUCOSE 107 MG/DL (70-104); MAGNESIUM 1.9 MG/DL (1.5-2.4); POTASSIUM 3.7 MMOL/L (3.5-5.1); SODIUM 138 MMOL/L (135-145); TOTAL CARBON DIOXIDE 21.8 MMOL/L (24-32); TOTAL PROTEIN 7.2 G/DL (6.4-8.2); eGFR > 90 ML/MIN
[2020-09-11 07:08] LABS: BASOPHILS % (AUTO) 0.5 % (0-1); EOSINOPHILS # (AUTO) 0.2 X10'3 (0-0.9); EOSINOPHILS % (AUTO) 2.5 % (0-6); HEMATOCRIT 30.1 % (35.0-45.0); HEMOGLOBIN 9.4 g/dl (12.0-16.0); LYMPHOCYTES # (AUTO) 1.2 X10'3 (1.1-4.8); LYMPHOCYTES % (AUTO) 13.8 % (21-51); MEAN CORPUSCULAR HEMOGLOBIN 26.8 PG (27.0-31.0); MEAN CORPUSCULAR HGB CONC 31.2 g/dL (33.0-36.5); MEAN CORPUSCULAR VOLUME 85.8 FL (78-98); MEAN PLATELET VOLUME 7.8 FL (7.4-10.4); MONOCYTES # (AUTO) 0.4 X10'3 (0-0.9); NEUTROPHILS # (AUTO) 6.9 X10'3 (1.8-7.7); NEUTROPHILS % (AUTO) 78.2 % (42-75); PLATELET COUNT 248 X10'3 (140-440); RED BLOOD COUNT 3.51 X10'6 (4.20-5.60); RED CELL DISTRIBUTION WIDTH 18.8 % (11.5-14.5); WHITE BLOOD COUNT 8.9 X10'3 (4.5-11.0)
[2020-09-11] MEDS: K and/or MAG REPLACEMENT MC SCH ×4 (07:51→20:00)
[2020-09-11] MEDS: atorvastatin 20mg tablet PO SCH (08:20)
[2020-09-11] MEDS: lactobacillus rhamnosus 10,000 MMU CELLS/CAPSULE PO SCH ×2 (08:20→20:38)
[2020-09-11] MEDS: enoxaparin 40mg/0.4ml syringe SUBCUT SCH (08:21)
[2020-09-11] MEDS: nicotine 14mg patch - 24hr TD SCH (08:21)
[2020-09-11] MEDS: HYDROcodone/acetaminophen 10/325mg tab PO PRN (08:30)
[2020-09-11 08:50] LABS: PLATELET ESTIMATE NORMAL
[2020-09-11 08:51] LABS: ANISOCYTOSIS 2+; POLYCHROMASIA FEW; TEAR DROP CELLS FEW
[2020-09-11] MEDS ORDERED: docusate sod 100mg capsule PO PRN (09:55)
[2020-09-11] MEDS ORDERED: sennosides 8.6mg tablet PO PRN (09:55)
[2020-09-11] MEDS ORDERED: cyclobenzaprine 10mg tablet PO PRN (09:55)
[2020-09-11 11:00] VITALS: BP 142/59
[2020-09-11] MEDS: gabapentin 300mg capsule PO SCH ×3 (13:07→20:38)
[2020-09-11] MEDS: busPIRone 15mg tablet PO SCH ×3 (13:07→20:38)
[2020-09-11] MEDS: ARIPIPRAZOLE 15 MG TABLET PO SCH (13:07)
[2020-09-11] MEDS ORDERED: VANCOmycin 1250MG/NS 250ml Bag 250 ML IV SCH (16:00)
--- NOTE | 2020-09-11 18:00 | NUR ---
Patient in room [facility] 345. I have received report from DOMINIC STEPHENS and had the opportunity to ask questions and assume patient care.
[2020-09-11] MEDS: nystatin 15 GM powder TP SCH ×2 (18:24→20:39)
[2020-09-11 19:00] VITALS: BP 150/65
--- NOTE | 2020-09-11 19:01 | NUR ---
Problems reprioritized. Patient report given, questions answered & plan of care reviewed with KAT MUÑOZ.
[2020-09-11] MEDS: metoprolol tartrate 25mg tablet PO SCH (20:38)
[2020-09-11] MEDS ORDERED: mirtazapine 15mg tablet PO SCH (21:00)
[2020-09-12] VITALS: BP 145/75
[2020-09-12] MEDS ORDERED: VANCOMYCIN LEVEL IV ONE (00:30)
[2020-09-12] MEDS: VANCOmycin 1250MG/NS 250ml Bag 250 ML IV SCH ×2 (00:41→08:27)
[2020-09-12 01:10] LABS: ALANINE AMINOTRANSFERASE 17 U/L (12-78); ALBUMIN 2.7 G/DL (3.4-5.0); ALBUMIN/GLOBULIN RATIO 0.6 (1.1-1.5); ALKALINE PHOSPHATASE 82 IU/L (46-116); ANION GAP 9 (8-16); ASPARTATE AMINO TRANSFERASE 9 U/L (10-37); BILIRUBIN,TOTAL 0.4 MG/DL (0.1-1.0); BLOOD UREA NITROGEN 17 MG/DL (7-18); BUN/CREATININE RATIO 23.6 (6.6-38.0); CALCIUM 8.8 MG/DL (8.5-10.1); CHLORIDE 104 MMOL/L (99-107); CREATININE 0.72 MG/DL (0.40-0.90); GLUCOSE 111 MG/DL (70-104); MAGNESIUM 1.6 MG/DL (1.5-2.4); POTASSIUM 3.7 MMOL/L (3.5-5.1); SODIUM 138 MMOL/L (135-145); TOTAL CARBON DIOXIDE 24.7 MMOL/L (24-32); VANCOMYCIN,TROUGH 19.1 UG/ML (6.0-14.0); eGFR 89 ML/MIN
[2020-09-12] MEDS: HYDROcodone/acetaminophen 10/325mg tab PO PRN ×2 (01:16→08:15)
[2020-09-12 02:29] LABS: BASOPHILS # (AUTO) 0.1 X10'3 (0-0.2); BASOPHILS % (AUTO) 0.7 % (0-1); EOSINOPHILS # (AUTO) 0.3 X10'3 (0-0.9); EOSINOPHILS % (AUTO) 3.3 % (0-6); HEMATOCRIT 31.3 % (35.0-45.0); LYMPHOCYTES # (AUTO) 1.6 X10'3 (1.1-4.8); LYMPHOCYTES % (AUTO) 17.3 % (21-51); MEAN CORPUSCULAR HEMOGLOBIN 27.2 PG (27.0-31.0); MEAN CORPUSCULAR VOLUME 85.1 FL (78-98); MEAN PLATELET VOLUME 7.6 FL (7.4-10.4); MONOCYTES # (AUTO) 0.4 X10'3 (0-0.9); MONOCYTES % (AUTO) 4.5 % (2-12); NEUTROPHILS % (AUTO) 74.2 % (42-75); PLATELET COUNT 291 X10'3 (140-440); RED BLOOD COUNT 3.68 X10'6 (4.20-5.60); RED CELL DISTRIBUTION WIDTH 18.2 % (11.5-14.5); WHITE BLOOD COUNT 9.4 X10'3 (4.5-11.0)
[2020-09-12] MEDS: piperacillin/tazo 3.375gm/50ml 50 ML IV SCH ×2 (03:18→11:00)
--- NOTE | 2020-09-12 06:15 | NUR ---
Problems reprioritized. Patient report given, questions answered & plan of care reviewed with Adilia STEPHENS.
--- NOTE | 2020-09-12 06:26 | NUR ---
Patient in room [facility] 345. I have received report from KAT Sol and had the opportunity to ask questions and assume patient care.
[2020-09-12 07:00] VITALS: BP 138/77
[2020-09-12] MEDS: K and/or MAG REPLACEMENT MC SCH ×2 (08:00)
[2020-09-12] MEDS ORDERED: PALIPERIDONE 3 MG TAB.ER.24 PO SCH (08:00)
[2020-09-12] MEDS ORDERED: non-formulary drug (Collagenase Oint* (Santyl Oint*) 1 APPLIC) TOP SCH (08:00)
[2020-09-12] MEDS: ARIPIPRAZOLE 15 MG TABLET PO SCH (08:11)
[2020-09-12] MEDS: metoprolol tartrate 25mg tablet PO SCH (08:12)
[2020-09-12] MEDS: atorvastatin 20mg tablet PO SCH (08:12)
[2020-09-12] MEDS: lactobacillus rhamnosus 10,000 MMU CELLS/CAPSULE PO SCH (08:12)
[2020-09-12] MEDS: gabapentin 300mg capsule PO SCH (08:12)
[2020-09-12] MEDS: busPIRone 15mg tablet PO SCH (08:13)
[2020-09-12] MEDS: nicotine 14mg patch - 24hr TD SCH (08:16)
[2020-09-12] MEDS: nystatin 15 GM powder TP SCH (08:17)
[2020-09-12] MEDS: enoxaparin 40mg/0.4ml syringe SUBCUT SCH (08:21)
[2020-09-12] MEDS ORDERED: ATOR20TA66 PO (10:36)
[2020-09-12] MEDS ORDERED: AMOX-580 PO (10:36)
[2020-09-12] MEDS ORDERED: DOXY-224 PO (10:36)
[2020-09-12 11:57] VITALS: BP 146/83
--- NOTE | 2020-09-12 12:16 | NUR ---
Discussed with patient discharge instructions and new prescriptions. Patient alert and oriented and verbalizes understanding of discharge teaching. Patient reports no questions. Patient refuses to have discharge wound pictures taken she states, "I just got all dressed. I will call wound care and make appointment. I take care of it at home too." Patient is ready for dc and awaiting transport home. manager stars Martine arranging transport with [employer] as patient states that is her regular mode of transport. kitchen supervisor time is at 1330.
--- NOTE | 2020-09-12 13:14 | NUR ---
Patient alert and oriented with no complaints. Patient dc'd with all personal belongings with [employer].
[2020-09-12] MEDS ORDERED: NICO-731 TD (18:38)
== END 2020-09-12 13:41 | disposition home or self-care (01) | DRG 383 ==
LOC: WOUND CARE 11:43 → SUR 3N 14:36 → UNDOADMIN 14:42
PROVIDERS: ADMIT Family Medicine; ATTEND Family Medicine
PROC: 5A09357 Assistance with Respiratory Ventilation, Less than 24 Consecutive Hours, Continuous Positive Airway Pressure (ICD-10-PCS; principal; 2020-09-09)
PROC: 5A09357 Assistance with Respiratory Ventilation, Less than 24 Consecutive Hours, Continuous Positive Airway Pressure (ICD-10-PCS; 2020-09-10)
PROC: 3E0234Z Introduction of Serum, Toxoid and Vaccine into Muscle, Percutaneous Approach (ICD-10-PCS; 2020-09-10)
DX: L03.818 Cellulitis of other sites (principal); M79.3 Panniculitis, unspecified; E66.01 Morbid (severe) obesity due to excess calories; E78.5 Hyperlipidemia, unspecified; Z68.45 Body mass index [BMI] 70 or greater, adult; F17.210 Nicotine dependence, cigarettes, uncomplicated; F20.9 Schizophrenia, unspecified; S31.105A Unspecified open wound of abdominal wall, periumbilic region without penetration into peritoneal cavity, initial encounter; X58.XXXA Exposure to other specified factors, initial encounter; D64.9 Anemia, unspecified; F31.9 Bipolar disorder, unspecified; F41.9 Anxiety disorder, unspecified; G47.33 Obstructive sleep apnea (adult) (pediatric); I10 Essential (primary) hypertension; Z79.899 Other long term (current) drug therapy; Z86.14 Personal history of Methicillin resistant Staphylococcus aureus infection; Z23 Encounter for immunization; Z71.6 Tobacco abuse counseling; Y93.89 Activity, other specified; Y92.89 Other specified places as the place of occurrence of the external cause; Y99.8 Other external cause status
CPT/HCPCS: 36415; 80053; 80061; 80202; 83036; 83605; 83735; 83880; 84100; 84443; 85008; 85025; 85610; 85730; 87040; 87081; 90732; 94660; 94760; 97161; 97530; 97597; G0378; J1650; J2543; J3370

== ENCOUNTER 2020-09-16 11:30 | Outpatient (CLI) | payer MEDICAID ==
[~2020-09-16 11:30] MED LIST changes: +ACET-1059 PO; +AMOX-580 PO; +ARIP30TA PO; -ARIP30TA7 PO; +ATOR20TA66 PO; +BUSP30TA2 PO; -BUSP30TA3 PO; -CEPH250T PO; -CEPH500C5 PO; +COLL30OI TOP; +DOXY-224 PO; -METO-539 PO; +METO25TA6 PO; +NICO-731 TD; -PALI1.5T PO; +PALI6TAB PO; -PANT40TA54 PO; -TOP100T PO; -[UNRECOGNIZED DRUG - OTHER] TOP
[2020-09-16] MEDS ORDERED: LIDOcaine 2% 5ml jelly ONE (12:30)
== END 2020-09-16 23:59 | disposition home or self-care (01) ==
LOC: WOUND CARE 11:30 → EDSTATUS 11:40 → WOUND CARE 23:59
PROVIDERS: ATTEND Nurse Practitioner
DX: T81.89XD Other complications of procedures, not elsewhere classified, subsequent encounter (principal); S31.109D Unspecified open wound of abdominal wall, unspecified quadrant without penetration into peritoneal cavity, subsequent encounter; E11.622 Type 2 diabetes mellitus with other skin ulcer; L98.492 Non-pressure chronic ulcer of skin of other sites with fat layer exposed; L97.222 Non-pressure chronic ulcer of left calf with fat layer exposed; E11.40 Type 2 diabetes mellitus with diabetic neuropathy, unspecified; M19.90 Unspecified osteoarthritis, unspecified site; I25.10 Atherosclerotic heart disease of native coronary artery without angina pectoris; I10 Essential (primary) hypertension; E66.01 Morbid (severe) obesity due to excess calories; F41.9 Anxiety disorder, unspecified; F17.210 Nicotine dependence, cigarettes, uncomplicated; F20.9 Schizophrenia, unspecified; F10.10 Alcohol abuse, uncomplicated; F32.9 Major depressive disorder, single episode, unspecified; Z86.73 Personal history of transient ischemic attack (TIA), and cerebral infarction without residual deficits; Z98.890 Other specified postprocedural states; Z79.2 Long term (current) use of antibiotics; Z79.899 Other long term (current) drug therapy; Z79.84 Long term (current) use of oral hypoglycemic drugs; Z68.45 Body mass index [BMI] 70 or greater, adult; Y83.8 Other surgical procedures as the cause of abnormal reaction of the patient, or of later complication, without mention of misadventure at the time of the procedure; X58.XXXD Exposure to other specified factors, subsequent encounter; E78.5 Hyperlipidemia, unspecified; G47.33 Obstructive sleep apnea (adult) (pediatric); M79.89 Other specified soft tissue disorders; Z86.14 Personal history of Methicillin resistant Staphylococcus aureus infection
CPT/HCPCS: 97597; G0463

== ENCOUNTER 2020-09-23 13:25 | Outpatient (CLI) | payer MEDICAID ==
[2020-09-23] MEDS ORDERED: LIDOcaine 2% 5ml jelly ONE (14:11)
== END 2020-09-23 23:59 | disposition home or self-care (01) ==
LOC: WOUND CARE 13:25
PROVIDERS: ATTEND Nurse Practitioner
DX: T81.89XD Other complications of procedures, not elsewhere classified, subsequent encounter (principal); E11.622 Type 2 diabetes mellitus with other skin ulcer; L98.492 Non-pressure chronic ulcer of skin of other sites with fat layer exposed; L97.222 Non-pressure chronic ulcer of left calf with fat layer exposed; S31.109D Unspecified open wound of abdominal wall, unspecified quadrant without penetration into peritoneal cavity, subsequent encounter; E11.40 Type 2 diabetes mellitus with diabetic neuropathy, unspecified; M19.90 Unspecified osteoarthritis, unspecified site; I25.10 Atherosclerotic heart disease of native coronary artery without angina pectoris; I10 Essential (primary) hypertension; E66.01 Morbid (severe) obesity due to excess calories; E78.5 Hyperlipidemia, unspecified; G47.33 Obstructive sleep apnea (adult) (pediatric); M79.89 Other specified soft tissue disorders; Z86.14 Personal history of Methicillin resistant Staphylococcus aureus infection; F41.9 Anxiety disorder, unspecified; F17.210 Nicotine dependence, cigarettes, uncomplicated; F20.9 Schizophrenia, unspecified; F10.10 Alcohol abuse, uncomplicated; F32.9 Major depressive disorder, single episode, unspecified; Z86.73 Personal history of transient ischemic attack (TIA), and cerebral infarction without residual deficits; Z98.890 Other specified postprocedural states; Z79.2 Long term (current) use of antibiotics; Z79.899 Other long term (current) drug therapy; Z79.84 Long term (current) use of oral hypoglycemic drugs; Z68.45 Body mass index [BMI] 70 or greater, adult; Y83.8 Other surgical procedures as the cause of abnormal reaction of the patient, or of later complication, without mention of misadventure at the time of the procedure; X58.XXXD Exposure to other specified factors, subsequent encounter
CPT/HCPCS: 97597

== ENCOUNTER 2020-10-03 13:02 | Outpatient (CLI) | payer MEDICAID ==
[2020-10-03] MEDS ORDERED: LIDOcaine 2% 5ml jelly ONE (13:54)
== END 2020-10-03 23:59 | disposition home or self-care (01) ==
LOC: WOUND CARE 13:02
PROVIDERS: ATTEND Nurse Practitioner Family
DX: T81.89XD Other complications of procedures, not elsewhere classified, subsequent encounter (principal); E11.622 Type 2 diabetes mellitus with other skin ulcer; L98.492 Non-pressure chronic ulcer of skin of other sites with fat layer exposed; L97.222 Non-pressure chronic ulcer of left calf with fat layer exposed; S31.109D Unspecified open wound of abdominal wall, unspecified quadrant without penetration into peritoneal cavity, subsequent encounter; E11.40 Type 2 diabetes mellitus with diabetic neuropathy, unspecified; M19.90 Unspecified osteoarthritis, unspecified site; I25.10 Atherosclerotic heart disease of native coronary artery without angina pectoris; I10 Essential (primary) hypertension; E66.01 Morbid (severe) obesity due to excess calories; E78.5 Hyperlipidemia, unspecified; G47.33 Obstructive sleep apnea (adult) (pediatric); M79.89 Other specified soft tissue disorders; F41.9 Anxiety disorder, unspecified; F17.210 Nicotine dependence, cigarettes, uncomplicated; F10.10 Alcohol abuse, uncomplicated; F20.9 Schizophrenia, unspecified; F32.9 Major depressive disorder, single episode, unspecified; Z86.14 Personal history of Methicillin resistant Staphylococcus aureus infection; Z86.73 Personal history of transient ischemic attack (TIA), and cerebral infarction without residual deficits; Z98.890 Other specified postprocedural states; Z79.2 Long term (current) use of antibiotics; Z79.899 Other long term (current) drug therapy; Z79.84 Long term (current) use of oral hypoglycemic drugs; Z68.45 Body mass index [BMI] 70 or greater, adult; Y83.8 Other surgical procedures as the cause of abnormal reaction of the patient, or of later complication, without mention of misadventure at the time of the procedure; X58.XXXD Exposure to other specified factors, subsequent encounter
CPT/HCPCS: 97597

== ENCOUNTER 2020-10-14 12:55 | Outpatient (CLI) | payer MEDICAID ==
[2020-10-14] MEDS ORDERED: LIDOcaine 2% 5ml jelly ONE (13:22)
== END 2020-10-14 23:59 | disposition home or self-care (01) ==
LOC: WOUND CARE 12:55 → EDSTATUS 13:00 → WOUND CARE 23:59
PROVIDERS: ATTEND Nurse Practitioner Family
DX: T81.89XD Other complications of procedures, not elsewhere classified, subsequent encounter (principal); E11.622 Type 2 diabetes mellitus with other skin ulcer; L98.492 Non-pressure chronic ulcer of skin of other sites with fat layer exposed; L97.222 Non-pressure chronic ulcer of left calf with fat layer exposed; S31.109D Unspecified open wound of abdominal wall, unspecified quadrant without penetration into peritoneal cavity, subsequent encounter; E11.40 Type 2 diabetes mellitus with diabetic neuropathy, unspecified; M19.90 Unspecified osteoarthritis, unspecified site; I25.10 Atherosclerotic heart disease of native coronary artery without angina pectoris; I10 Essential (primary) hypertension; E66.01 Morbid (severe) obesity due to excess calories; E78.5 Hyperlipidemia, unspecified; G47.33 Obstructive sleep apnea (adult) (pediatric); M79.89 Other specified soft tissue disorders; F41.9 Anxiety disorder, unspecified; F17.210 Nicotine dependence, cigarettes, uncomplicated; F10.10 Alcohol abuse, uncomplicated; F20.9 Schizophrenia, unspecified; F32.9 Major depressive disorder, single episode, unspecified; Z86.14 Personal history of Methicillin resistant Staphylococcus aureus infection; Z86.73 Personal history of transient ischemic attack (TIA), and cerebral infarction without residual deficits; Z79.2 Long term (current) use of antibiotics; Z79.899 Other long term (current) drug therapy; Z79.84 Long term (current) use of oral hypoglycemic drugs; Z68.45 Body mass index [BMI] 70 or greater, adult; Y83.8 Other surgical procedures as the cause of abnormal reaction of the patient, or of later complication, without mention of misadventure at the time of the procedure
CPT/HCPCS: 97597

== ENCOUNTER 2020-10-21 11:52 | Outpatient (CLI) | payer MEDICAID ==
[2020-10-21] MEDS ORDERED: LIDOcaine 2% 5ml jelly ONE (12:15)
== END 2020-10-21 23:59 | disposition home or self-care (01) ==
LOC: WOUND CARE 11:52 → EDSTATUS 13:00 → WOUND CARE 23:59
PROVIDERS: ATTEND Nurse Practitioner
DX: T81.89XD Other complications of procedures, not elsewhere classified, subsequent encounter (principal); E11.622 Type 2 diabetes mellitus with other skin ulcer; L98.492 Non-pressure chronic ulcer of skin of other sites with fat layer exposed; L97.222 Non-pressure chronic ulcer of left calf with fat layer exposed; S31.109D Unspecified open wound of abdominal wall, unspecified quadrant without penetration into peritoneal cavity, subsequent encounter; E11.40 Type 2 diabetes mellitus with diabetic neuropathy, unspecified; M19.90 Unspecified osteoarthritis, unspecified site; I25.10 Atherosclerotic heart disease of native coronary artery without angina pectoris; I10 Essential (primary) hypertension; E66.01 Morbid (severe) obesity due to excess calories; E78.5 Hyperlipidemia, unspecified; G47.33 Obstructive sleep apnea (adult) (pediatric); M79.89 Other specified soft tissue disorders; F41.9 Anxiety disorder, unspecified; F17.210 Nicotine dependence, cigarettes, uncomplicated; F10.10 Alcohol abuse, uncomplicated; F20.9 Schizophrenia, unspecified; F32.9 Major depressive disorder, single episode, unspecified; Z86.14 Personal history of Methicillin resistant Staphylococcus aureus infection; Z86.73 Personal history of transient ischemic attack (TIA), and cerebral infarction without residual deficits; Z98.890 Other specified postprocedural states; Z79.2 Long term (current) use of antibiotics; Z79.899 Other long term (current) drug therapy; Z79.84 Long term (current) use of oral hypoglycemic drugs; Z68.45 Body mass index [BMI] 70 or greater, adult; Y83.8 Other surgical procedures as the cause of abnormal reaction of the patient, or of later complication, without mention of misadventure at the time of the procedure; X58.XXXD Exposure to other specified factors, subsequent encounter
CPT/HCPCS: 11042; 11045

== ENCOUNTER 2020-11-02 13:05 | Emergency (ER) | payer MEDICAID ==
[~2020-11-02] VITALS: Ht 160 cm; Wt 205.0 kg
[2020-11-02] MEDS ORDERED: DOXY100C76 PO (16:00)
[2020-11-02 16:32] VITALS: BP 136/100
== END 2020-11-02 16:30 | disposition home or self-care (01) ==
LOC: ER 13:06
DX: L03.311 Cellulitis of abdominal wall (principal); I10 Essential (primary) hypertension; F41.9 Anxiety disorder, unspecified; F31.9 Bipolar disorder, unspecified; F20.9 Schizophrenia, unspecified; Z98.890 Other specified postprocedural states; Z79.2 Long term (current) use of antibiotics; Z79.899 Other long term (current) drug therapy
CPT/HCPCS: 99283

== ENCOUNTER 2020-11-11 13:12 | Outpatient (CLI) | payer MEDICAID ==
[~2020-11-11 13:12] MED LIST changes: +DOXY100C76 PO
[2020-11-11] MEDS ORDERED: LIDOcaine 2% 5ml jelly ONE (13:52)
[2020-11-11] MEDS ORDERED: ALBU18HF2 INH (16:56)
[2020-11-11] MEDS ORDERED: PRED20TA PO (16:56)
== END 2020-11-11 23:59 | disposition home or self-care (01) ==
LOC: WOUND CARE 13:12
PROVIDERS: ATTEND Nurse Practitioner
DX: T81.89XD Other complications of procedures, not elsewhere classified, subsequent encounter (principal); E11.622 Type 2 diabetes mellitus with other skin ulcer; L98.492 Non-pressure chronic ulcer of skin of other sites with fat layer exposed; L97.222 Non-pressure chronic ulcer of left calf with fat layer exposed; S31.109D Unspecified open wound of abdominal wall, unspecified quadrant without penetration into peritoneal cavity, subsequent encounter; E11.40 Type 2 diabetes mellitus with diabetic neuropathy, unspecified; M19.90 Unspecified osteoarthritis, unspecified site; I25.10 Atherosclerotic heart disease of native coronary artery without angina pectoris; I10 Essential (primary) hypertension; E66.01 Morbid (severe) obesity due to excess calories; E78.5 Hyperlipidemia, unspecified; G47.33 Obstructive sleep apnea (adult) (pediatric); M79.89 Other specified soft tissue disorders; F41.9 Anxiety disorder, unspecified; F17.210 Nicotine dependence, cigarettes, uncomplicated; F10.10 Alcohol abuse, uncomplicated; F20.9 Schizophrenia, unspecified; F32.9 Major depressive disorder, single episode, unspecified; Z86.14 Personal history of Methicillin resistant Staphylococcus aureus infection; Z86.73 Personal history of transient ischemic attack (TIA), and cerebral infarction without residual deficits; Z98.890 Other specified postprocedural states; Z79.2 Long term (current) use of antibiotics; Z79.899 Other long term (current) drug therapy; Z79.84 Long term (current) use of oral hypoglycemic drugs; Z68.45 Body mass index [BMI] 70 or greater, adult; Y83.8 Other surgical procedures as the cause of abnormal reaction of the patient, or of later complication, without mention of misadventure at the time of the procedure; X58.XXXD Exposure to other specified factors, subsequent encounter
CPT/HCPCS: 97597; 97598

== ENCOUNTER 2020-11-11 14:23 | Emergency (ER) | payer MEDICAID ==
[~2020-11-11] VITALS: Ht 160 cm; Wt 204.6 kg
[2020-11-11] MEDS ORDERED: ipratropium/albuterol 3ml nebule NEB ONE (14:55)
[2020-11-11] MEDS ORDERED: albuterol 2.5 MG/3 ML nebule NEB ONE (14:55)
[2020-11-11 15:45] VITALS: BP 194/107
[2020-11-11] MEDS ORDERED: ALBU18HF2 INH (16:56)
[2020-11-11] MEDS ORDERED: PRED20TA PO (16:56)
[2020-11-11] MEDS ORDERED: predniSONE 20 mg tablet PO ONE (17:00)
== END 2020-11-11 18:11 | disposition home or self-care (01) ==
LOC: ER 14:24
DX: R06.2 Wheezing (principal); R06.02 Shortness of breath; I10 Essential (primary) hypertension; F41.9 Anxiety disorder, unspecified; F31.9 Bipolar disorder, unspecified; F20.9 Schizophrenia, unspecified; F17.200 Nicotine dependence, unspecified, uncomplicated; Z85.9 Personal history of malignant neoplasm, unspecified; Z98.890 Other specified postprocedural states; Z79.2 Long term (current) use of antibiotics; Z79.899 Other long term (current) drug therapy
CPT/HCPCS: 71045; 94640; 99283; J7512; 94760

== ENCOUNTER → 2021-01-10 | Outpatient (CLI) | payer MEDICAID ==
[~2021-01-10] MED LIST changes: +ALBU18HF2 INH; -DOXY100C76 PO; +LIDOcaine 2% 5ml jelly ONE; +nystatin 15 GM powder TP ONE
== END | disposition home or self-care (01) ==
LOC: EDSTATUS 01-06 13:00 → WOUND CARE 12:57
PROVIDERS: ATTEND Nurse Practitioner
DX: T81.89XD Other complications of procedures, not elsewhere classified, subsequent encounter (principal); E11.622 Type 2 diabetes mellitus with other skin ulcer; L98.492 Non-pressure chronic ulcer of skin of other sites with fat layer exposed; L97.222 Non-pressure chronic ulcer of left calf with fat layer exposed; L97.821 Non-pressure chronic ulcer of other part of left lower leg limited to breakdown of skin; S31.109D Unspecified open wound of abdominal wall, unspecified quadrant without penetration into peritoneal cavity, subsequent encounter; E11.40 Type 2 diabetes mellitus with diabetic neuropathy, unspecified; M19.90 Unspecified osteoarthritis, unspecified site; I25.10 Atherosclerotic heart disease of native coronary artery without angina pectoris; I10 Essential (primary) hypertension; E66.01 Morbid (severe) obesity due to excess calories; E78.5 Hyperlipidemia, unspecified; G47.33 Obstructive sleep apnea (adult) (pediatric); M79.89 Other specified soft tissue disorders; F41.9 Anxiety disorder, unspecified; F17.210 Nicotine dependence, cigarettes, uncomplicated; F10.10 Alcohol abuse, uncomplicated; F20.9 Schizophrenia, unspecified; F32.9 Major depressive disorder, single episode, unspecified; Z86.14 Personal history of Methicillin resistant Staphylococcus aureus infection; Z86.73 Personal history of transient ischemic attack (TIA), and cerebral infarction without residual deficits; Z98.890 Other specified postprocedural states; Z79.2 Long term (current) use of antibiotics; Z79.899 Other long term (current) drug therapy; Z79.84 Long term (current) use of oral hypoglycemic drugs; Z68.45 Body mass index [BMI] 70 or greater, adult; Y83.8 Other surgical procedures as the cause of abnormal reaction of the patient, or of later complication, without mention of misadventure at the time of the procedure; X58.XXXD Exposure to other specified factors, subsequent encounter
CPT/HCPCS: 11042; 11045; 97597

== ENCOUNTER 2021-02-10 14:01 | Emergency (ER) | payer MEDICAID ==
[~2021-02-10] VITALS: Ht 160 cm; Wt 209.1 kg
[~2021-02-10 14:01] MED LIST changes: -LIDOcaine 2% 5ml jelly ONE; +LOP25T PO; -METO25TA6 PO; -nystatin 15 GM powder TP ONE; +rifampin inj. 600 MG in normal saline 100ml IV soln 100 ML IV ONE
[2021-02-10 18:37] LABS: BASOPHILS % (AUTO) 0.4 % (0-1); EOSINOPHILS # (AUTO) 0.3 X10'3 (0-0.9); EOSINOPHILS % (AUTO) 2.7 % (0-6); HEMATOCRIT 30.7 % (35.0-45.0); HEMOGLOBIN 9.6 g/dl (12.0-16.0); LYMPHOCYTES % (AUTO) 19.1 % (21-51); MEAN CORPUSCULAR HEMOGLOBIN 27.4 PG (27.0-31.0); MEAN CORPUSCULAR HGB CONC 31.2 g/dL (33.0-36.5); MEAN CORPUSCULAR VOLUME 87.8 FL (78-98); MEAN PLATELET VOLUME 7.3 FL (7.4-10.4); MONOCYTES # (AUTO) 0.5 X10'3 (0-0.9); MONOCYTES % (AUTO) 5.3 % (2-12); NEUTROPHILS # (AUTO) 7.4 X10'3 (1.8-7.7); NEUTROPHILS % (AUTO) 72.5 % (42-75); PLATELET COUNT 294 X10'3 (140-440); RED CELL DISTRIBUTION WIDTH 18.7 % (11.5-14.5); WHITE BLOOD COUNT 10.2 X10'3 (4.5-11.0)
[2021-02-10 19:45] LABS: ALANINE AMINOTRANSFERASE 12 U/L (12-78); ALBUMIN 3.2 G/DL (3.4-5.0); ALBUMIN/GLOBULIN RATIO 0.7 (1.1-1.5); ALKALINE PHOSPHATASE 67 IU/L (46-116); ANION GAP 12 (8-16); ASPARTATE AMINO TRANSFERASE 8 U/L (10-37); BILIRUBIN,TOTAL 0.4 MG/DL (0.1-1.0); BLOOD UREA NITROGEN 18 MG/DL (7-18); BUN/CREATININE RATIO 21.7 (6.6-38.0); CALCIUM 8.7 MG/DL (8.5-10.1); CHLORIDE 110 MMOL/L (99-107); CREATININE 0.83 MG/DL (0.40-0.90); GLUCOSE 100 MG/DL (70-104); POTASSIUM 3.3 MMOL/L (3.5-5.1); SODIUM 146 MMOL/L (135-145); TOTAL PROTEIN 7.6 G/DL (6.4-8.2); eGFR 75 ML/MIN
[2021-02-10] MEDS ORDERED: potassium Cl 20 mEq SR tablet PO ONE (20:00)
--- NOTE | 2021-02-10 20:03 | NUR ---
, CASSIDY PT'S MOTHER CALLED FOR UPDATE
[2021-02-10] MEDS ORDERED: CEPH250T PO (20:29)
[2021-02-10] MEDS ORDERED: SULF1TAB49 PO (20:29)
--- NOTE | 2021-02-10 20:35 | NUR ---
BG 92
[2021-02-10 20:37] LABS: PLATELET ESTIMATE NORMAL
[2021-02-10 20:38] LABS: ANISOCYTOSIS 2+; LARGE PLATELETS FEW; POLYCHROMASIA FEW; TEAR DROP CELLS FEW
--- NOTE | 2021-02-10 20:40 | NUR ---
[employer] contacted for ride home- will call back if they still have a city bus driver
[2021-02-10 21:19] VITALS: BP 179/66
== END 2021-02-10 21:20 | disposition home or self-care (01) ==
LOC: ER 14:02
DX: L03.311 Cellulitis of abdominal wall (principal); I10 Essential (primary) hypertension; F41.9 Anxiety disorder, unspecified; F31.9 Bipolar disorder, unspecified; F20.9 Schizophrenia, unspecified; Z85.9 Personal history of malignant neoplasm, unspecified; Z98.890 Other specified postprocedural states; Z79.2 Long term (current) use of antibiotics; Z79.899 Other long term (current) drug therapy
CPT/HCPCS: 36415; 80053; 82948; 83605; 84145; 85008; 85025; 87040; 96365; 99284; J3490

== ENCOUNTER 2021-05-22 14:52 | Emergency (ER) | payer MEDICAID ==
[~2021-05-22] VITALS: Ht 160 cm; Wt 210.4 kg
[~2021-05-22 14:52] MED LIST changes: -ACET-1059 PO; +ALBU17AE26 IH; -ALBU18HF2 INH; -AMOX-580 PO; -ATOR20TA66 PO; +BUSP10TA11 PO; -BUSP30TA2 PO; -COLL30OI TOP; -CYCL5TAB PO; -DOCU-267 PO; -DOXY-224 PO; +HYDR-3964 PO; -NICO-731 TD; +POTA20TA19 PO; +TOP100T PO; +VARE1TAB22 PO; -rifampin inj. 600 MG in normal saline 100ml IV soln 100 ML IV ONE
[2021-05-22] MEDS ORDERED: normal saline 1000ml 1,000 ML IV ONE (16:00)
[2021-05-22] MEDS ORDERED: morphine 4 MG/ML inj SYRINge IV ONE (16:00)
[2021-05-22] MEDS ORDERED: ondansetron 4mg rapidly disintigrating tab PO ONE (16:00)
[2021-05-22] MEDS ORDERED: clindamycin 600mg/D5W 50ml 50 ML IV ONE (16:00)
[2021-05-22 16:29] LABS: BASOPHILS % (AUTO) 0.4 % (0-1); EOSINOPHILS # (AUTO) 0.2 X10'3 (0-0.9); EOSINOPHILS % (AUTO) 1.8 % (0-6); HEMATOCRIT 31.3 % (35.0-45.0); HEMOGLOBIN 10.2 g/dl (12.0-16.0); LYMPHOCYTES # (AUTO) 1.7 X10'3 (1.1-4.8); LYMPHOCYTES % (AUTO) 17.3 % (21-51); MEAN CORPUSCULAR HEMOGLOBIN 28.3 PG (27.0-31.0); MEAN CORPUSCULAR HGB CONC 32.7 g/dL (33.0-36.5); MEAN CORPUSCULAR VOLUME 86.6 FL (78-98); MEAN PLATELET VOLUME 7.2 FL (7.4-10.4); MONOCYTES # (AUTO) 0.6 X10'3 (0-0.9); MONOCYTES % (AUTO) 5.5 % (2-12); NEUTROPHILS # (AUTO) 7.6 X10'3 (1.8-7.7); PLATELET COUNT 285 X10'3 (140-440); RED BLOOD COUNT 3.61 X10'6 (4.20-5.60); RED CELL DISTRIBUTION WIDTH 16.9 % (11.5-14.5); WHITE BLOOD COUNT 10.1 X10'3 (4.5-11.0)
[2021-05-22 16:59] LABS: ALANINE AMINOTRANSFERASE 15 U/L (12-78); ALBUMIN 3.3 G/DL (3.4-5.0); ALBUMIN/GLOBULIN RATIO 0.7 (1.1-1.5); ALKALINE PHOSPHATASE 73 IU/L (46-116); ANION GAP 9 (8-16); ASPARTATE AMINO TRANSFERASE 11 U/L (10-37); BILIRUBIN,TOTAL 0.4 MG/DL (0.1-1.0); BLOOD UREA NITROGEN 17 MG/DL (7-18); BUN/CREATININE RATIO 20.5 (6.6-38.0); CALCIUM 8.8 MG/DL (8.5-10.1); CHLORIDE 106 MMOL/L (99-107); CREATININE 0.83 MG/DL (0.40-0.90); GLUCOSE 102 MG/DL (70-104); MAGNESIUM 1.8 MG/DL (1.5-2.4); POTASSIUM 3.3 MMOL/L (3.5-5.1); SODIUM 143 MMOL/L (135-145); TOTAL CARBON DIOXIDE 27.7 MMOL/L (24-32); eGFR 75 ML/MIN
[2021-05-22] MEDS ORDERED: potassium Cl 20 mEq SR tablet PO STA (17:12)
[2021-05-22 17:35] LABS: BETA HCG,QUANTITATIVE < 1.0 mIU/ml
[2021-05-22] MEDS ORDERED: DOXYCYCLINE 100MG CAPSULE PO STA (17:48)
[2021-05-22] MEDS ORDERED: DOXY100C76 PO (17:52)
[2021-05-22] MEDS ORDERED: ONDA4TAB6 PO (17:52)
[2021-05-22] MEDS ORDERED: CLIN150C8 PO (17:52)
[2021-05-22 18:23] VITALS: BP 158/89
== END 2021-05-22 18:25 | disposition home or self-care (01) ==
LOC: ER 14:52
DX: L03.116 Cellulitis of left lower limb (principal); M79.662 Pain in left lower leg; I10 Essential (primary) hypertension; F41.9 Anxiety disorder, unspecified; F31.9 Bipolar disorder, unspecified; F20.9 Schizophrenia, unspecified; Z98.890 Other specified postprocedural states; Z79.2 Long term (current) use of antibiotics; Z85.9 Personal history of malignant neoplasm, unspecified
CPT/HCPCS: 36415; 80053; 83605; 83735; 84145; 84702; 85025; 87040; 93005; 93971; 96374; 96375; 99285; J2270; J7030; J3490

== ENCOUNTER 2021-07-04 10:15 | Inpatient (IN) | payer MEDICAID ==
[~2021-07-04] VITALS: Ht 160 cm; Wt 202.0 kg
[~2021-07-04 10:15] MED LIST changes: +CLIN150C8 PO; +ONDA4TAB6 PO
[2021-07-04] MEDS ORDERED: vancomycin/NS 1 GM ADD-VANTAGE 250 ML IV ONE (11:10)
[2021-07-04] MEDS ORDERED: piperacillin/tazo 4.5gm/100ml 100 ML IV ONE (11:13)
[2021-07-04 11:21] LABS: BASOPHILS % (AUTO) 0.4 % (0-1); EOSINOPHILS % (AUTO) 0.5 % (0-6); HEMATOCRIT 36.7 % (35.0-45.0); HEMOGLOBIN 11.9 g/dl (12.0-16.0); LYMPHOCYTES # (AUTO) 1.5 X10'3 (1.1-4.8); LYMPHOCYTES % (AUTO) 16.4 % (21-51); MEAN CORPUSCULAR HEMOGLOBIN 28.3 PG (27.0-31.0); MEAN CORPUSCULAR HGB CONC 32.3 g/dL (33.0-36.5); MEAN CORPUSCULAR VOLUME 87.6 FL (78-98); MEAN PLATELET VOLUME 7.4 FL (7.4-10.4); MONOCYTES # (AUTO) 0.9 X10'3 (0-0.9); MONOCYTES % (AUTO) 9.5 % (2-12); NEUTROPHILS # (AUTO) 6.7 X10'3 (1.8-7.7); NEUTROPHILS % (AUTO) 73.2 % (42-75); PLATELET COUNT 313 X10'3 (140-440); RED BLOOD COUNT 4.19 X10'6 (4.20-5.60); RED CELL DISTRIBUTION WIDTH 17.6 % (11.5-14.5); WHITE BLOOD COUNT 9.2 X10'3 (4.5-11.0)
[2021-07-04] MEDS ORDERED: morphine 4 MG/ML inj SYRINge IV ONE (11:30)
[2021-07-04] MEDS ORDERED: ondansetron/PF 4mg/2ml inj IV ONE (11:30)
[2021-07-04 11:31] LABS: POTASSIUM 3.2 MMOL/L (3.5-5.1); SODIUM 141 MMOL/L (135-145)
[2021-07-04 11:43] LABS: ALBUMIN 3.7 G/DL (3.4-5.0); ANION GAP 13 (8-16); BILIRUBIN,DIRECT 0.1 MG/DL (0-0.3); BLOOD UREA NITROGEN 18 MG/DL (7-18); BUN/CREATININE RATIO 23.1 (6.6-38.0); CALCIUM 8.8 MG/DL (8.5-10.1); CHLORIDE 104 MMOL/L (99-107); CREATININE 0.78 MG/DL (0.40-0.90); GLUCOSE 114 MG/DL (70-104); LIPASE < 50 U/L (73-393); TOTAL CARBON DIOXIDE 24.2 MMOL/L (24-32); eGFR 81 ML/MIN
[2021-07-04 11:59] LABS: ALANINE AMINOTRANSFERASE 18 U/L (12-78); ALBUMIN/GLOBULIN RATIO 0.7 (1.1-1.5); ALKALINE PHOSPHATASE 61 IU/L (46-116); ASPARTATE AMINO TRANSFERASE 8 U/L (10-37); BILIRUBIN,TOTAL 0.5 MG/DL (0.1-1.0); TOTAL PROTEIN 8.7 G/DL (6.4-8.2)
--- NOTE | 2021-07-04 12:43 | NUR ---
PAT TO CT[facility]
--- NOTE | 2021-07-04 13:56 | NUR ---
PATIENT BACK FROM CT AT [facility] AT THIS TIME, NO SIGNS OF DISTRESS NOTED, PAT UP TO BEDSIDE COMMODE WITHOUT ASSISTANCE.
[2021-07-04 14:22] LABS: CLARITY,URINE CLOUDY (Clear); COLOR,URINE YELLOW (Yellow); GLUCOSE, URINE NEGATIVE (Neg); KETONES,URINE NEGATIVE (Neg); LEUKOCYTE ESTERASE ,URINE NEGATIVE (Neg); NITRITES, URINE POSITIVE (Neg); OCCULT BLOOD,URINE NEGATIVE (Neg); PROTEIN,URINE 30 mg/dl (Neg); UROBILINOGEN,URINE 0.2 E.U/dL (0.2-1.0)
[2021-07-04 14:23] LABS: UA COLLECTION TYPE VOIDED
[2021-07-04] MEDS ORDERED: FERR325T32 PO (14:43)
[2021-07-04] MEDS ORDERED: MELO-102 PO (14:43)
[2021-07-04 14:50] LABS: BACTERIA,URINE 4+ /HPF (Neg); MUCUS STRANDS FEW /LPF (Neg); SQUAMOUS EPITHELIAL CELL,UR MODERATE /LPF (FEW)
[2021-07-04] MEDS ORDERED: ipratropium/albuterol 3ml nebule NEB PRN (14:50)
[2021-07-04] MEDS ORDERED: mag hydrox/Alum hydrox/simeth 30ml oral suspension PO PRN (14:50)
[2021-07-04] MEDS ORDERED: potassium Cl 20 mEq SR tablet PO PRN ×2 (14:50)
[2021-07-04] MEDS ORDERED: magnesium 2GM in 50ml NS 50 ML IV PRN (14:50)
[2021-07-04] MEDS ORDERED: magnesium 4gm in 100ml NS 100 ML IV PRN (14:50)
[2021-07-04] MEDS ORDERED: albuterol 2.5 MG/3 ML nebule NEB PRN (14:50)
[2021-07-04] MEDS ORDERED: morphine 2 MG/ML inj. syringe IV PRN ×2 (14:50)
[2021-07-04] MEDS ORDERED: ondansetron/PF 4mg/2ml inj IV PRN (14:50)
[2021-07-04] MEDS ORDERED: bisacodyl 10mg suppository rectal RC PRN (14:50)
[2021-07-04] MEDS ORDERED: potassium Cl 40MEQ/1/2NS 520ml 520 ML IV PRN ×2 (14:50)
[2021-07-04 14:51] LABS: RBC,URINE 0-2 /HPF (0-2); WBC,URINE 0-4 /HPF (0-4)
[2021-07-04] MEDS ORDERED: LIDOcaine 2% 10ml TOPICAL JELLY (Urojet) MM ONE (15:00)
[2021-07-04] MEDS ORDERED: HYDROmorphone inj. 0.5 MG/0.5 ML DISP.SYRIN IV PRN (15:30)
[2021-07-04] MEDS: potassium Cl 20mEq in NS 1,000 ML IV SCH (15:31)
[2021-07-04] MEDS: HYDROmorphone 1 mg/ml syringe IV PRN ×2 (17:19→21:09)
[2021-07-04] MEDS: busPIRone 15mg tablet PO SCH ×2 (17:55→21:00)
[2021-07-04] MEDS ORDERED: piperacillin/tazo 4.5gm/100ml 100 ML IV SCH (20:00)
[2021-07-04] MEDS: metoprolol tartrate 25mg tablet PO SCH (20:00)
[2021-07-04] MEDS: gabapentin 300mg capsule PO SCH (20:00)
[2021-07-04] MEDS: K and/or MAG REPLACEMENT MC SCH (20:00)
[2021-07-04] MEDS: mirtazapine 15mg tablet PO SCH (21:00)
[2021-07-04] MEDS: enoxaparin 40mg/0.4ml syringe SQ SCH (22:13)
[2021-07-05] VITALS (20 sets, daily range): BP systolic 88–211; BP diastolic 58–109
--- NOTE | 2021-07-05 | NUR ---
PT TEARFUL, REPORTS SHE IS HAVING PAIN.
[2021-07-05] MEDS: potassium Cl 20mEq in NS 1,000 ML IV SCH ×3 (01:20→22:05)
[2021-07-05] MEDS: HYDROmorphone 1 mg/ml syringe IV PRN ×2 (01:21→05:10)
[2021-07-05 04:36] LABS: BASOPHILS % (AUTO) 0.4 % (0-1); EOSINOPHILS # (AUTO) 0.1 X10'3 (0-0.9); EOSINOPHILS % (AUTO) 0.5 % (0-6); HEMATOCRIT 32.8 % (35.0-45.0); HEMOGLOBIN 10.4 g/dl (12.0-16.0); LYMPHOCYTES # (AUTO) 1.1 X10'3 (1.1-4.8); LYMPHOCYTES % (AUTO) 11.9 % (21-51); MEAN CORPUSCULAR HEMOGLOBIN 27.8 PG (27.0-31.0); MEAN CORPUSCULAR HGB CONC 31.6 g/dL (33.0-36.5); MEAN CORPUSCULAR VOLUME 88.1 FL (78-98); MEAN PLATELET VOLUME 7.4 FL (7.4-10.4); MONOCYTES # (AUTO) 0.8 X10'3 (0-0.9); NEUTROPHILS # (AUTO) 7.5 X10'3 (1.8-7.7); NEUTROPHILS % (AUTO) 79.2 % (42-75); PLATELET COUNT 266 X10'3 (140-440); RED BLOOD COUNT 3.73 X10'6 (4.20-5.60); RED CELL DISTRIBUTION WIDTH 17.7 % (11.5-14.5); WHITE BLOOD COUNT 9.5 X10'3 (4.5-11.0)
--- NOTE | 2021-07-05 05:00 | NUR ---
PT REPORTS PAIN IS GETTING WORSE. SHE IS ANXIOUS ABOUT HAVING SEVERE PAIN AGAIN, WILL ADMINISTER DILAUDID.
[2021-07-05 05:13] LABS: ALANINE AMINOTRANSFERASE 14 U/L (12-78); ALBUMIN 3.2 G/DL (3.4-5.0); ALBUMIN/GLOBULIN RATIO 0.8 (1.1-1.5); ALKALINE PHOSPHATASE 65 IU/L (46-116); ANION GAP 13 (8-16); ASPARTATE AMINO TRANSFERASE 6 U/L (10-37); BILIRUBIN,TOTAL 0.4 MG/DL (0.1-1.0); BLOOD UREA NITROGEN 20 MG/DL (7-18); BUN/CREATININE RATIO 27.4 (6.6-38.0); CALCIUM 8.1 MG/DL (8.5-10.1); CHLORIDE 108 MMOL/L (99-107); CREATININE 0.73 MG/DL (0.40-0.90); GLUCOSE 113 MG/DL (70-104); MAGNESIUM 1.8 MG/DL (1.5-2.4); POTASSIUM 3.5 MMOL/L (3.5-5.1); SODIUM 145 MMOL/L (135-145); TOTAL CARBON DIOXIDE 24.3 MMOL/L (24-32); TOTAL PROTEIN 7.3 G/DL (6.4-8.2); eGFR 87 ML/MIN
[2021-07-05] MEDS ORDERED: BUPIVAcaine/PF 2.5mg/ml (0.25%) 10ml vial ONE (07:04)
--- NOTE | 2021-07-05 07:26 | NUR ---
Pt arrived to surgical floor to hospital via hospital bed. Settled in room 351, call light in reach.
[2021-07-05] MEDS: K and/or MAG REPLACEMENT MC SCH ×2 (08:00→19:45)
[2021-07-05] MEDS: busPIRone 15mg tablet PO SCH ×4 (09:30→21:00)
[2021-07-05] MEDS: gabapentin 300mg capsule PO SCH ×2 (09:30→20:00)
[2021-07-05] MEDS: metoprolol tartrate 25mg tablet PO SCH ×2 (09:31→20:00)
[2021-07-05] MEDS ORDERED: midazolam 1 mg/ML 2ml injection ONE (12:45)
[2021-07-05] MEDS ORDERED: fentaNYL /PF 50mcg/ml 5ml ampule ONE (12:45)
[2021-07-05] MEDS ORDERED: succinylcholine 20mg/ml inj IV ONE (12:46)
[2021-07-05] MEDS ORDERED: sevoflurane 250ml liquid IH ONE (12:46)
[2021-07-05] MEDS ORDERED: propofol inj 20 ML IV ONE (12:51)
[2021-07-05] MEDS ORDERED: ringers solution, lacted 1,000 ML IV SCH (14:00)
[2021-07-05] MEDS ORDERED: ondansetron/PF 4mg/2ml inj IV PRN (14:00)
[2021-07-05] MEDS ORDERED: morphine 4 MG/ML inj SYRINge IV PRN (14:00)
[2021-07-05] MEDS ORDERED: morphine 2 MG/ML inj. syringe IV PRN (14:00)
[2021-07-05] MEDS ORDERED: bacitracin 15gm ointment TP ONE (14:33)
[2021-07-05] MEDS ORDERED: rocuronium 10mg/ml inj IV ONE ×3 (14:50)
[2021-07-05] MEDS ORDERED: ceFOXitin 1000 MG inj ONE ×2 (14:51)
[2021-07-05] MEDS: nystatin/triamcinolone cream 15gm TP SCH (14:55)
--- NOTE | 2021-07-05 15:00 | NUR ---
Received from OR via , accompanied by Anesthesiologist and report given by Anesthesiolgist. PATIENT SEDATED , NO S/S OF PAIN OTHER HTN SEDATION MEDS STARTED SEE EMAR, HTN OTHER V/S STABLE ALTHOUGH PATIENT IS VENTILATED SEE RT NOTES FOR SETTINGS. FIO2 DECREASED FROM 50 TO 35%. ET TUBE AT 23CM AT TEETH. F/C DRAINING CLEAR YELLOW URINE. 20G LUE / ART LINE TO RUE. CL TRIPLE LUMEN TO RIGHT NECK. SCD ON. NG TO RIGHT NARES INTERMITTENT LWS WITH MINIMAL OUTPUT. LARGE ABDOMEN DRESSING CDI. FENTYNAL AND VERCED GTT RUNNING PER PROTICALS
[2021-07-05 15:09] LABS: ABG BASE EXCESS -1.5 mmol/L (-2.0-2.0); ABG HCO3 24.2 mmol/L (22.0-26.0); ABG OXYGEN SATURATION 98.4 % (94-97); ABG PCO2 (T) 44.4 mmHg (32.0-45.0); ABG PO2 (T) 140.4 mmHg (75.0-100.0); FCOHb 0.7 % (0.0-3.9); FMetHb 0.3 % (0.0-1.5); FO2Hb 97.4 % (94-97); PEEP 5 cm H2O; RESPIRATORY RATE 16 b/min; TIDAL VOLUME 500 mL; TOTAL HEMOGLOBIN 11.7 G/dl (12.0-16.0)
[2021-07-05] MEDS: midazolam 100mg in NS 100ml 100 ML IV PRN ×2 (15:25→21:12)
[2021-07-05] MEDS ORDERED: labetalol 20mg/4ml (5mg/ml) syringe IV PRN (15:30)
--- NOTE | 2021-07-05 16:00 | NUR ---
arrived to 2039 via bed report from [facility] in recovery room, placed on monitors, Vitals stable Abd wound drsg CDI.
--- NOTE | 2021-07-05 16:00 | NUR ---
PATIENT SEDATED , NO S/S OF PAIN, HTN RESOLVING, V/S STABLE ALTHOUGH PATIENT IS VENTILATED SEE RT NOTES FOR SETTINGS. FIO2 35%. ET TUBE AT 23CM REDUCED BY DR LEE TO 22CM AT TEETH. F/C DRAINING CLEAR YELLOW URINE. 20G LUE / ART LINE TO RUE. CL TRIPLE LUMEN TO RIGHT NECK. SCD ON. NG TO RIGHT NARES INTERMITTENT LWS WITH MINIMAL OUTPUT. LARGE ABDOMEN DRESSING CDI. FENTANYL AND VERSED GTT RUNNING PER PROTICALS. PATIENT TAKEN TO 241 WITH ALL BELONGINGS AND HOOKED UP TO MONITORS IN ROOM AND REPORT GIVEN TO TOOLMAKER WHO HAS TAKEN OVER PATIENT CARE.
[2021-07-05] MEDS: FENTANYL-0.9 % NACL/PF 100 ML IV PRN ×2 (18:30→22:31)
--- NOTE | 2021-07-05 18:30 | NUR ---
Patient in room ICU 2040. I have received report from Jameel STEPHENS and had the opportunity to ask questions and assume patient care.
[2021-07-05] MEDS: enoxaparin 40mg/0.4ml syringe SQ SCH (20:00)
[2021-07-05] MEDS: mirtazapine 15mg tablet PO SCH (21:00)
[2021-07-06] VITALS (24 sets, daily range): BP systolic 93–157; BP diastolic 44–82
[2021-07-06] MEDS: FENTANYL-0.9 % NACL/PF 100 ML IV PRN ×3 (02:46→10:47)
[2021-07-06 02:48] LABS: BASOPHILS # (AUTO) 0.1 X10'3 (0-0.2); BASOPHILS % (AUTO) 0.6 % (0-1); EOSINOPHILS # (AUTO) 0.1 X10'3 (0-0.9); EOSINOPHILS % (AUTO) 0.8 % (0-6); HEMATOCRIT 31.6 % (35.0-45.0); HEMOGLOBIN 10.1 g/dl (12.0-16.0); LYMPHOCYTES # (AUTO) 1.3 X10'3 (1.1-4.8); LYMPHOCYTES % (AUTO) 13.4 % (21-51); MEAN CORPUSCULAR HEMOGLOBIN 28.4 PG (27.0-31.0); MEAN CORPUSCULAR HGB CONC 31.8 g/dL (33.0-36.5); MEAN CORPUSCULAR VOLUME 89.1 FL (78-98); MEAN PLATELET VOLUME 7.6 FL (7.4-10.4); MONOCYTES # (AUTO) 0.9 X10'3 (0-0.9); MONOCYTES % (AUTO) 8.7 % (2-12); NEUTROPHILS # (AUTO) 7.5 X10'3 (1.8-7.7); NEUTROPHILS % (AUTO) 76.5 % (42-75); PLATELET COUNT 252 X10'3 (140-440); RED BLOOD COUNT 3.55 X10'6 (4.20-5.60); RED CELL DISTRIBUTION WIDTH 17.8 % (11.5-14.5); WHITE BLOOD COUNT 9.8 X10'3 (4.5-11.0)
[2021-07-06 03:08] LABS: ABG BASE EXCESS -4.1 mmol/L (-2.0-2.0); ABG HCO3 21.9 mmol/L (22.0-26.0); ABG OXYGEN SATURATION 96.7 % (94-97); ABG PCO2 (T) 46.1 mmHg (32.0-45.0); ABG PO2 (T) 103.7 mmHg (75.0-100.0); ALLEN'S TEST POSITIVE; FCOHb 0.7 % (0.0-3.9); FMetHb 0.4 % (0.0-1.5); FO2Hb 95.6 % (94-97); PATIENT TEMPERATURE 38.2; PEEP 5 cm H2O; RESPIRATORY RATE 20 b/min; TIDAL VOLUME 400 mL; TOTAL HEMOGLOBIN 11.4 G/dl (12.0-16.0)
[2021-07-06 03:09] LABS: ALANINE AMINOTRANSFERASE 13 U/L (12-78); ALBUMIN 2.5 G/DL (3.4-5.0); ALBUMIN/GLOBULIN RATIO 0.6 (1.1-1.5); ALKALINE PHOSPHATASE 57 IU/L (46-116); ANION GAP 10 (8-16); ASPARTATE AMINO TRANSFERASE 9 U/L (10-37); BILIRUBIN,TOTAL 0.5 MG/DL (0.1-1.0); BLOOD UREA NITROGEN 19 MG/DL (7-18); BUN/CREATININE RATIO 27.1 (6.6-38.0); CALCIUM 7.6 MG/DL (8.5-10.1); CHLORIDE 111 MMOL/L (99-107); GLUCOSE 102 MG/DL (70-104); MAGNESIUM 1.7 MG/DL (1.5-2.4); PHOSPHORUS 3.1 MG/DL (2.3-4.5); POTASSIUM 3.2 MMOL/L (3.5-5.1); SODIUM 146 MMOL/L (135-145); TOTAL CARBON DIOXIDE 25.4 MMOL/L (24-32); TOTAL PROTEIN 6.7 G/DL (6.4-8.2); eGFR > 90 ML/MIN
[2021-07-06] MEDS: midazolam 100mg in NS 100ml 100 ML IV PRN (05:08)
--- NOTE | 2021-07-06 06:30 | NUR ---
Patient in room ICU 2040. I have received report from freedom and had the opportunity to ask questions and assume patient care.
--- NOTE | 2021-07-06 06:42 | NUR ---
Patient in room ICU 2040. I have received report from Rivka STEPHENS and had the opportunity to ask questions and assume patient care.
[2021-07-06] MEDS: K and/or MAG REPLACEMENT MC SCH ×2 (08:00→19:20)
[2021-07-06] MEDS: potassium Cl 20mEq in NS 1,000 ML IV SCH ×3 (08:22→23:01)
[2021-07-06] MEDS: vancomycin/NS 1 GM ADD-VANTAGE 250 ML IV SCH ×2 (09:27→17:19)
[2021-07-06] MEDS: potassium Cl 40MEQ/250ML bag 270 ML IV PRN (09:29)
[2021-07-06] MEDS: gabapentin 300mg capsule PO SCH ×2 (09:29→19:46)
[2021-07-06] MEDS: metoprolol tartrate 25mg tablet PO SCH ×2 (09:29→19:47)
[2021-07-06] MEDS: busPIRone 15mg tablet PO SCH ×4 (09:29→21:58)
[2021-07-06] MEDS: pantoprazole 40 MG vial IV SCH (09:33)
--- NOTE | 2021-07-06 10:00 | NUR ---
pt restless at times, c/o pain in belly- fentanyl bolus given. versed from 11 to 5 in anticipation of weaning as dr rodriguez states that belly is closed and ok to wean. after 15 minutes- pt is restless, c/o inability to breathe- versed bolus given.- pt calmed
--- NOTE | 2021-07-06 11:14 | NUR ---
Initial: Pt intubated admit DX SBO w/ incarcerated hernia s/p OR for bowel resection and hernia repair yesterday per EMR. NPO at this time w/ NG in place -830ml output past 24 hours per per EMR. Receiving electrolyte replacement per protocol. Will monitor for nutrition support needs if prolonged intubation; IF anticipated to be NPO 5-7 days without bowel function return consider PN to meet wound healing needs post-op. Rec: 1. consider trickle EN using Vital High Protein at 10ml/hr IF prolonged intubation post-op; advance as medically indicated to 65ml/hr goal 2. IF prolonged NPO post-op at least 5-7 days without GI function return consider PN to meet nutrition needs 3. bowel care per rx 4. upon extubation; advance diet as medically indicated to low-residue Addendum: 07/06/21 at [address] Amended: Links added.
[2021-07-06] MEDS ORDERED: fluconazole 40mg/ml oral suspension 35ml bottle PO SCH (14:00)
--- NOTE | 2021-07-06 14:00 | NUR ---
pts weaning parameters called to md- ok for extubation
[2021-07-06] MEDS ORDERED: naloxone 0.4 mg/ml inj IV PRN (14:05)
[2021-07-06] MEDS ORDERED: racepinephrine 11.25mg/0.5ml nebule NEB PRN (14:05)
[2021-07-06] MEDS ORDERED: ipratropium/albuterol 3ml nebule NEB PRN (14:05)
[2021-07-06] MEDS ORDERED: CADD PCA waste documentation MC PRN (14:05)
[2021-07-06] MEDS ORDERED: normal saline 1000ml 1,000 ML IV SCH (14:05)
[2021-07-06] MEDS: nystatin/triamcinolone cream 15gm TP SCH (14:16)
[2021-07-06] MEDS ORDERED: fluconazole 10 MG/1 ML 35ml oral suspension PO SCH (14:29)
--- NOTE | 2021-07-06 14:45 | NUR ---
pt severely agitated, biting on ett, removing restraints, sitting up in bed. RT called- extubated to 3lnc. pt calm, cooperative.. dilaudid cadd started.
[2021-07-06] MEDS: ipratropium/albuterol 3ml nebule NEB SCH ×2 (14:49→21:07)
[2021-07-06] MEDS: HYDROmorph./NS 0.2 mg/ml CADD 100 ML IV SCH ×5 (15:46→23:00)
--- NOTE | 2021-07-06 17:00 | NUR ---
k replaced earlier today. pt given a few ice chips- tolerated well. pt placed on marcia bed., assisted with turns- wound care to left knee.
[2021-07-06] MEDS ORDERED: furosemide 40mg/4ml inj ONE (17:57)
--- NOTE | 2021-07-06 18:30 | NUR ---
Patient in room ICU 2040. I have received report from Rivka STEPHENS and had the opportunity to ask questions and assume patient care.
[2021-07-06] MEDS: mineral oil/petrolatum ophthal oint EACHEYE SCH (19:20)
[2021-07-06] MEDS: acetaminophen 325mg tablet PO PRN ×2 (19:46→21:21)
[2021-07-06] MEDS: docusate sod 100mg capsule PO SCH (19:47)
[2021-07-06] MEDS: enoxaparin 40mg/0.4ml syringe SQ SCH (19:47)
[2021-07-06] MEDS: sennosides/docusate sodium tablet PO SCH (19:47)
[2021-07-06] MEDS: mirtazapine 15mg tablet PO SCH (21:58)
[2021-07-07] VITALS (19 sets, daily range): BP systolic 134–178; BP diastolic 62–76
[2021-07-07] MEDS: vancomycin/NS 1 GM ADD-VANTAGE 250 ML IV SCH ×2 (00:02→07:43)
[2021-07-07] MEDS: HYDROmorph./NS 0.2 mg/ml CADD 100 ML IV SCH ×12 (01:00→23:00)
[2021-07-07] MEDS: mineral oil/petrolatum ophthal oint EACHEYE SCH ×4 (02:00→20:00)
[2021-07-07] MEDS: ipratropium/albuterol 3ml nebule NEB SCH ×4 (02:50→20:20)
[2021-07-07 04:20] LABS: BASOPHILS % (AUTO) 0.3 % (0-1); EOSINOPHILS # (AUTO) 0.1 X10'3 (0-0.9); EOSINOPHILS % (AUTO) 1.3 % (0-6); HEMATOCRIT 28.7 % (35.0-45.0); HEMOGLOBIN 9.3 g/dl (12.0-16.0); LYMPHOCYTES # (AUTO) 1.3 X10'3 (1.1-4.8); LYMPHOCYTES % (AUTO) 12.2 % (21-51); MEAN CORPUSCULAR HEMOGLOBIN 28.7 PG (27.0-31.0); MEAN CORPUSCULAR HGB CONC 32.5 g/dL (33.0-36.5); MEAN CORPUSCULAR VOLUME 88.2 FL (78-98); MEAN PLATELET VOLUME 7.7 FL (7.4-10.4); MONOCYTES # (AUTO) 0.8 X10'3 (0-0.9); MONOCYTES % (AUTO) 7.3 % (2-12); NEUTROPHILS # (AUTO) 8.4 X10'3 (1.8-7.7); NEUTROPHILS % (AUTO) 78.9 % (42-75); PLATELET COUNT 235 X10'3 (140-440); RED BLOOD COUNT 3.25 X10'6 (4.20-5.60); RED CELL DISTRIBUTION WIDTH 17.6 % (11.5-14.5); WHITE BLOOD COUNT 10.6 X10'3 (4.5-11.0)
[2021-07-07 04:36] LABS: ALANINE AMINOTRANSFERASE 11 U/L (12-78); ALBUMIN 2.5 G/DL (3.4-5.0); ALBUMIN/GLOBULIN RATIO 0.7 (1.1-1.5); ALKALINE PHOSPHATASE 85 IU/L (46-116); ANION GAP 11 (8-16); ASPARTATE AMINO TRANSFERASE 8 U/L (10-37); BILIRUBIN,TOTAL 0.6 MG/DL (0.1-1.0); BLOOD UREA NITROGEN 14 MG/DL (7-18); CALCIUM 7.3 MG/DL (8.5-10.1); CHLORIDE 112 MMOL/L (99-107); CREATININE 0.61 MG/DL (0.40-0.90); GLUCOSE 95 MG/DL (70-104); MAGNESIUM 1.9 MG/DL (1.5-2.4); PHOSPHORUS 2.2 MG/DL (2.3-4.5); POTASSIUM 3.4 MMOL/L (3.5-5.1); SODIUM 146 MMOL/L (135-145); TOTAL CARBON DIOXIDE 23.5 MMOL/L (24-32); TOTAL PROTEIN 6.3 G/DL (6.4-8.2); eGFR > 90 ML/MIN
--- NOTE | 2021-07-07 06:27 | NUR ---
Problems reprioritized. Patient report given, questions answered & plan of care reviewed with Leilani STEPHENS.
--- NOTE | 2021-07-07 06:30 | NUR ---
Patient in room ICU 2040. I have received report from Urbano STEPHENS and had the opportunity to ask questions and assume patient care.
[2021-07-07] MEDS ORDERED: VANCOMYCIN LEVEL IV ONE ×2 (07:30→15:30)
[2021-07-07] MEDS: pantoprazole 40 MG vial IV SCH (07:44)
[2021-07-07] MEDS: potassium Cl 40MEQ/250ML bag 270 ML IV PRN (07:44)
[2021-07-07] MEDS: busPIRone 15mg tablet PO SCH ×4 (07:46→21:35)
[2021-07-07] MEDS: docusate sod 100mg capsule PO SCH ×2 (07:46→20:00)
[2021-07-07] MEDS: sennosides/docusate sodium tablet PO SCH ×2 (07:46→20:00)
[2021-07-07] MEDS: gabapentin 300mg capsule PO SCH ×2 (07:47→21:36)
[2021-07-07] MEDS: nystatin/triamcinolone cream 15gm TP SCH (07:47)
[2021-07-07] MEDS: metoprolol tartrate 25mg tablet PO SCH ×2 (07:47→21:41)
[2021-07-07] MEDS: K and/or MAG REPLACEMENT MC SCH ×2 (07:48→20:00)
[2021-07-07] MEDS: potassium Cl 20mEq in NS 1,000 ML IV SCH ×2 (11:22→21:37)
--- NOTE | 2021-07-07 16:50 | NUR ---
Problems reprioritized. Patient report given, questions answered & plan of care reviewed with Peyton STEPHENS. Patient stable at transfer of care.
--- NOTE | 2021-07-07 18:12 | NUR ---
Patient was received from ICU at 1720 today. Pt has dilaudid cadd and NS 20 Meq K running. She is content with call light and dilaudid button in reach. Ok to advance diet to reg per MD Scott. Pt has been able to use the commode for BM but has not urinated yet. F/C was d/c'd in ICU right before transfer. Will have oncoming shift continue to monitor.
--- NOTE | 2021-07-07 18:34 | NUR ---
Patient in room PCU 3022. I have received report from Peyton STEPHENS and had the opportunity to ask questions and assume patient care.
--- NOTE | 2021-07-07 18:40 | NUR ---
Problems reprioritized. Patient report given, questions answered & plan of care reviewed with KAT Guillen.
[2021-07-07] MEDS: mirtazapine 15mg tablet PO SCH (21:35)
[2021-07-07] MEDS: lactobacillus rhamnosus 10,000 MMU CELLS/CAPSULE PO SCH (21:35)
[2021-07-07] MEDS: enoxaparin 40mg/0.4ml syringe SQ SCH (21:36)
[2021-07-08] MEDS: HYDROmorph./NS 0.2 mg/ml CADD 100 ML IV SCH ×7 (01:00→13:00)
[2021-07-08 02:00] VITALS: BP 144/68
[2021-07-08] MEDS: mineral oil/petrolatum ophthal oint EACHEYE SCH ×4 (02:00→20:00)
[2021-07-08] MEDS: ipratropium/albuterol 3ml nebule NEB SCH ×4 (03:00→21:25)
[2021-07-08 06:00] VITALS: BP 138/66
--- NOTE | 2021-07-08 06:26 | NUR ---
Problems reprioritized. Patient report given, questions answered & plan of care reviewed with Trish STEPHENS.
[2021-07-08 07:04] LABS: BASOPHILS % (AUTO) 0.4 % (0-1); EOSINOPHILS # (AUTO) 0.3 X10'3 (0-0.9); EOSINOPHILS % (AUTO) 2.9 % (0-6); HEMATOCRIT 28.9 % (35.0-45.0); HEMOGLOBIN 9.1 g/dl (12.0-16.0); LYMPHOCYTES # (AUTO) 1.4 X10'3 (1.1-4.8); LYMPHOCYTES % (AUTO) 14.2 % (21-51); MEAN CORPUSCULAR HEMOGLOBIN 28.3 PG (27.0-31.0); MEAN CORPUSCULAR HGB CONC 31.5 g/dL (33.0-36.5); MEAN CORPUSCULAR VOLUME 89.7 FL (78-98); MEAN PLATELET VOLUME 7.9 FL (7.4-10.4); MONOCYTES # (AUTO) 0.8 X10'3 (0-0.9); MONOCYTES % (AUTO) 8.1 % (2-12); NEUTROPHILS # (AUTO) 7.5 X10'3 (1.8-7.7); NEUTROPHILS % (AUTO) 74.4 % (42-75); PLATELET COUNT 264 X10'3 (140-440); RED BLOOD COUNT 3.22 X10'6 (4.20-5.60); RED CELL DISTRIBUTION WIDTH 18.1 % (11.5-14.5); WHITE BLOOD COUNT 10.1 X10'3 (4.5-11.0)
[2021-07-08 07:32] LABS: ALANINE AMINOTRANSFERASE 10 U/L (12-78); ALBUMIN 2.2 G/DL (3.4-5.0); ALBUMIN/GLOBULIN RATIO 0.6 (1.1-1.5); ALKALINE PHOSPHATASE 91 IU/L (46-116); ANION GAP 9 (8-16); ASPARTATE AMINO TRANSFERASE 11 U/L (10-37); BILIRUBIN,TOTAL 0.4 MG/DL (0.1-1.0); BLOOD UREA NITROGEN 8 MG/DL (7-18); CALCIUM 7.3 MG/DL (8.5-10.1); CHLORIDE 111 MMOL/L (99-107); CREATININE 0.57 MG/DL (0.40-0.90); GLUCOSE 106 MG/DL (70-104); PHOSPHORUS 2.2 MG/DL (2.3-4.5); POTASSIUM 3.9 MMOL/L (3.5-5.1); SODIUM 144 MMOL/L (135-145); TOTAL PROTEIN 6.2 G/DL (6.4-8.2); eGFR > 90 ML/MIN
[2021-07-08] MEDS: docusate sod 100mg capsule PO SCH ×2 (08:00→21:09)
[2021-07-08] MEDS: K and/or MAG REPLACEMENT MC SCH ×2 (08:00→20:00)
[2021-07-08] MEDS: sennosides/docusate sodium tablet PO SCH ×2 (08:00→21:08)
[2021-07-08] MEDS: busPIRone 15mg tablet PO SCH ×4 (08:50→21:08)
[2021-07-08] MEDS: gabapentin 300mg capsule PO SCH ×2 (08:50→21:07)
[2021-07-08] MEDS: lactobacillus rhamnosus 10,000 MMU CELLS/CAPSULE PO SCH ×2 (08:50→21:01)
[2021-07-08] MEDS: metoprolol tartrate 25mg tablet PO SCH ×2 (08:50→21:05)
[2021-07-08] MEDS: potassium Cl 20mEq in NS 1,000 ML IV SCH ×2 (08:51→21:10)
[2021-07-08] MEDS: nystatin/triamcinolone cream 15gm TP SCH (08:51)
[2021-07-08 11:00] VITALS: BP 153/78
[2021-07-08 15:00] VITALS: BP 173/63
[2021-07-08] MEDS: HYDROcodone/acetaminophen 5mg/325mg tablet PO PRN ×2 (16:17→21:01)
[2021-07-08 20:00] VITALS: BP 147/60
[2021-07-08] MEDS: enoxaparin 40mg/0.4ml syringe SQ SCH (21:01)
[2021-07-08] MEDS: mirtazapine 15mg tablet PO SCH (21:08)
[2021-07-09] MEDS: HYDROcodone/acetaminophen 5mg/325mg tablet PO PRN ×4 (01:29→22:58)
[2021-07-09] MEDS: potassium Cl 20mEq in NS 1,000 ML IV SCH ×2 (02:00→14:33)
[2021-07-09] MEDS: ipratropium/albuterol 3ml nebule NEB SCH ×4 (03:58→21:13)
[2021-07-09 06:00] VITALS: BP 137/77
[2021-07-09 06:33] LABS: ALANINE AMINOTRANSFERASE 14 U/L (12-78); ALBUMIN 2.1 G/DL (3.4-5.0); ALBUMIN/GLOBULIN RATIO 0.5 (1.1-1.5); ALKALINE PHOSPHATASE 99 IU/L (46-116); ANION GAP 7 (8-16); ASPARTATE AMINO TRANSFERASE 12 U/L (10-37); BILIRUBIN,TOTAL 0.3 MG/DL (0.1-1.0); BLOOD UREA NITROGEN 9 MG/DL (7-18); BUN/CREATININE RATIO 14.1 (6.6-38.0); CHLORIDE 111 MMOL/L (99-107); CREATININE 0.64 MG/DL (0.40-0.90); GLUCOSE 107 MG/DL (70-104); MAGNESIUM 1.9 MG/DL (1.5-2.4); PHOSPHORUS 2.8 MG/DL (2.3-4.5); POTASSIUM 3.7 MMOL/L (3.5-5.1); SODIUM 143 MMOL/L (135-145); TOTAL CARBON DIOXIDE 25.3 MMOL/L (24-32); TOTAL PROTEIN 6.3 G/DL (6.4-8.2); eGFR > 90 ML/MIN
[2021-07-09 07:07] LABS: BASOPHILS # (AUTO) 0.1 X10'3 (0-0.2); BASOPHILS % (AUTO) 0.7 % (0-1); EOSINOPHILS # (AUTO) 0.3 X10'3 (0-0.9); EOSINOPHILS % (AUTO) 3.1 % (0-6); HEMATOCRIT 27.4 % (35.0-45.0); HEMOGLOBIN 8.6 g/dl (12.0-16.0); LYMPHOCYTES # (AUTO) 2.1 X10'3 (1.1-4.8); LYMPHOCYTES % (AUTO) 20.2 % (21-51); MEAN CORPUSCULAR HEMOGLOBIN 28.3 PG (27.0-31.0); MEAN CORPUSCULAR HGB CONC 31.5 g/dL (33.0-36.5); MEAN CORPUSCULAR VOLUME 89.7 FL (78-98); MEAN PLATELET VOLUME 8.3 FL (7.4-10.4); NEUTROPHILS # (AUTO) 6.8 X10'3 (1.8-7.7); PLATELET COUNT 258 X10'3 (140-440); RED BLOOD COUNT 3.05 X10'6 (4.20-5.60); RED CELL DISTRIBUTION WIDTH 17.4 % (11.5-14.5); WHITE BLOOD COUNT 10.3 X10'3 (4.5-11.0)
[2021-07-09] MEDS: metoprolol tartrate 25mg tablet PO SCH (08:00)
[2021-07-09] MEDS: nystatin/triamcinolone cream 15gm TP SCH (08:00)
[2021-07-09] MEDS: docusate sod 100mg capsule PO SCH (08:00)
[2021-07-09] MEDS: gabapentin 300mg capsule PO SCH (08:00)
[2021-07-09] MEDS: busPIRone 15mg tablet PO SCH ×3 (08:00→17:52)
[2021-07-09] MEDS: lactobacillus rhamnosus 10,000 MMU CELLS/CAPSULE PO SCH (08:00)
[2021-07-09] MEDS: K and/or MAG REPLACEMENT MC SCH ×2 (08:00→20:00)
[2021-07-09] MEDS: sennosides/docusate sodium tablet PO SCH (08:00)
[2021-07-09 11:00] VITALS: BP 150/84
--- NOTE | 2021-07-09 11:30 | NUR ---
Initial: Pt extubated 07/06, advanced to Regular diet 07/07. Pt still complains of abd pain though able to eat 100% of meals since diet advancement. Intake adequate, current diet tolerated. No N/V/D noted, LBM 07/08. No nutrition intervention implemented at this time, will continue to monitor. Rec: 1. Continue regular diet as tolerated 2. Bowel care per rx 3. Scaled wt this admit, weekly wt thereafter Addendum: 07/09/21 at [address] Amended: Links added.
[2021-07-09 15:00] VITALS: BP 148/80
--- NOTE | 2021-07-09 18:52 | NUR ---
Problems reprioritized. Patient report given, questions answered & plan of care reviewed with KAT Clifford.
[2021-07-09] MEDS: enoxaparin 40mg/0.4ml syringe SQ SCH (23:59)
[2021-07-10] VITALS: BP 154/70
[2021-07-10] MEDS: busPIRone 15mg tablet PO SCH ×5 (00:01→20:10)
[2021-07-10] MEDS: mirtazapine 15mg tablet PO SCH ×2 (00:01→20:10)
[2021-07-10] MEDS: sennosides/docusate sodium tablet PO SCH ×3 (00:01→20:10)
[2021-07-10] MEDS: docusate sod 100mg capsule PO SCH ×3 (00:02→20:10)
[2021-07-10] MEDS: potassium Cl 20mEq in NS 1,000 ML IV SCH ×2 (00:50→10:50)
[2021-07-10 03:00] VITALS: BP 155/82
[2021-07-10] MEDS: ipratropium/albuterol 3ml nebule NEB SCH ×4 (03:00→21:00)
[2021-07-10] MEDS: HYDROcodone/acetaminophen 5mg/325mg tablet PO PRN ×4 (03:01→20:14)
[2021-07-10 06:00] VITALS: BP 192/96
[2021-07-10 07:01] LABS: MAGNESIUM 1.8 MG/DL (1.5-2.4)
[2021-07-10 07:27] LABS: BASOPHILS # (AUTO) 0.1 X10'3 (0-0.2); BASOPHILS % (AUTO) 0.5 % (0-1); EOSINOPHILS # (AUTO) 0.3 X10'3 (0-0.9); EOSINOPHILS % (AUTO) 2.9 % (0-6); HEMATOCRIT 25.6 % (35.0-45.0); HEMOGLOBIN 8.3 g/dl (12.0-16.0); LYMPHOCYTES # (AUTO) 1.4 X10'3 (1.1-4.8); LYMPHOCYTES % (AUTO) 13.5 % (21-51); MEAN CORPUSCULAR HEMOGLOBIN 28.5 PG (27.0-31.0); MEAN CORPUSCULAR HGB CONC 32.6 g/dL (33.0-36.5); MEAN CORPUSCULAR VOLUME 87.2 FL (78-98); MEAN PLATELET VOLUME 8.2 FL (7.4-10.4); MONOCYTES # (AUTO) 0.9 X10'3 (0-0.9); MONOCYTES % (AUTO) 8.6 % (2-12); NEUTROPHILS % (AUTO) 74.5 % (42-75); PLATELET COUNT 288 X10'3 (140-440); RED BLOOD COUNT 2.93 X10'6 (4.20-5.60); RED CELL DISTRIBUTION WIDTH 17.3 % (11.5-14.5); WHITE BLOOD COUNT 10.7 X10'3 (4.5-11.0)
[2021-07-10 07:34] LABS: ALANINE AMINOTRANSFERASE 16 U/L (12-78); ALBUMIN 2.2 G/DL (3.4-5.0); ALBUMIN/GLOBULIN RATIO 0.5 (1.1-1.5); ALKALINE PHOSPHATASE 107 IU/L (46-116); ANION GAP 11 (8-16); ASPARTATE AMINO TRANSFERASE 12 U/L (10-37); BILIRUBIN,TOTAL 0.4 MG/DL (0.1-1.0); BLOOD UREA NITROGEN 8 MG/DL (7-18); BUN/CREATININE RATIO 13.1 (6.6-38.0); CHLORIDE 107 MMOL/L (99-107); CREATININE 0.61 MG/DL (0.40-0.90); GLUCOSE 105 MG/DL (70-104); POTASSIUM 3.7 MMOL/L (3.5-5.1); SODIUM 142 MMOL/L (135-145); TOTAL CARBON DIOXIDE 23.9 MMOL/L (24-32); TOTAL PROTEIN 6.5 G/DL (6.4-8.2); eGFR > 90 ML/MIN
--- NOTE | 2021-07-10 07:55 | NUR ---
Problems reprioritized. Patient report given, questions answered & plan of care reviewed with KAT Loera.
[2021-07-10] MEDS: K and/or MAG REPLACEMENT MC SCH ×2 (08:00→20:00)
[2021-07-10] MEDS: gabapentin 300mg capsule PO SCH ×3 (08:54→20:09)
[2021-07-10] MEDS: metoprolol tartrate 25mg tablet PO SCH ×3 (08:55→20:11)
[2021-07-10] MEDS: lactobacillus rhamnosus 10,000 MMU CELLS/CAPSULE PO SCH ×3 (08:55→20:24)
[2021-07-10] MEDS: nystatin/triamcinolone cream 15gm TP SCH (08:56)
[2021-07-10 11:00] VITALS: BP 185/101
--- NOTE | 2021-07-10 11:39 | NUR ---
Paged Dr. Ramey PAGER ID: [phone] MESSAGE: RE 3022 Ambika Sommer, BP 195/101, no PRNs. Trish STEPHESN [phone]
[2021-07-10] MEDS: cloNIDine 0.1 mg tablet PO PRN (14:21)
[2021-07-10] MEDS: amLODIPine 5mg tablet PO SCH (14:24)
[2021-07-10 15:00] VITALS: BP 156/72
[2021-07-10 18:00] VITALS: BP 154/76
[2021-07-10] MEDS: enoxaparin 40mg/0.4ml syringe SQ SCH (20:11)
[2021-07-10] MEDS ORDERED: diatr meglu/diatrizoate 30ml oral sol.-(3 dose) bottle PO ONE (21:00)
[2021-07-11] VITALS (7 sets, daily range): BP systolic 134–149; BP diastolic 53–79
[2021-07-11] MEDS: ipratropium/albuterol 3ml nebule NEB SCH ×4 (03:00→21:00)
[2021-07-11] MEDS: HYDROcodone/acetaminophen 5mg/325mg tablet PO PRN ×3 (05:22→20:14)
[2021-07-11] MEDS ORDERED: diatr meglu/diatrizoate 30ml oral sol.-(3 dose) bottle PO ONE ×3 (06:00→07:50)
--- NOTE | 2021-07-11 06:00 | NUR ---
Patient in room PCU 3022. I have received report from Stefanie STEPHENS and had the opportunity to ask questions and assume patient care.
[2021-07-11] MEDS: K and/or MAG REPLACEMENT MC SCH ×2 (07:27→20:00)
[2021-07-11] MEDS: gabapentin 300mg capsule PO SCH ×2 (08:55→20:13)
[2021-07-11] MEDS: amLODIPine 5mg tablet PO SCH (08:56)
[2021-07-11] MEDS: sennosides/docusate sodium tablet PO SCH ×2 (08:56→20:12)
[2021-07-11] MEDS: docusate sod 100mg capsule PO SCH ×2 (08:56→20:12)
[2021-07-11] MEDS: busPIRone 15mg tablet PO SCH ×4 (08:56→20:12)
[2021-07-11] MEDS: lactobacillus rhamnosus 10,000 MMU CELLS/CAPSULE PO SCH ×2 (08:56→20:14)
[2021-07-11] MEDS: metoprolol tartrate 25mg tablet PO SCH ×2 (08:57→20:13)
[2021-07-11] MEDS: nystatin/triamcinolone cream 15gm TP SCH (08:57)
[2021-07-11] MEDS ORDERED: iohexol 350MG/ML 100ml bottle IV ONE (11:34)
--- NOTE | 2021-07-11 18:40 | NUR ---
Problems reprioritized. Patient report given, questions answered & plan of care reviewed with Stefanie RN at bedside.
[2021-07-11] MEDS: mirtazapine 15mg tablet PO SCH (20:12)
[2021-07-11] MEDS: enoxaparin 40mg/0.4ml syringe SQ SCH (20:18)
[2021-07-12 02:00] VITALS: BP 135/61
[2021-07-12] MEDS: ipratropium/albuterol 3ml nebule NEB SCH ×4 (05:00→21:41)
[2021-07-12 06:00] VITALS: BP 143/67
[2021-07-12] MEDS: K and/or MAG REPLACEMENT MC SCH ×2 (08:00→20:00)
[2021-07-12] MEDS: sennosides/docusate sodium tablet PO SCH ×2 (08:38→20:14)
[2021-07-12] MEDS: metoprolol tartrate 25mg tablet PO SCH ×2 (08:39→20:18)
[2021-07-12] MEDS: lactobacillus rhamnosus 10,000 MMU CELLS/CAPSULE PO SCH ×2 (08:39→20:15)
[2021-07-12] MEDS: docusate sod 100mg capsule PO SCH ×2 (08:39→20:15)
[2021-07-12] MEDS: busPIRone 15mg tablet PO SCH ×3 (08:43→20:14)
[2021-07-12] MEDS: gabapentin 300mg capsule PO SCH ×2 (08:44→20:15)
[2021-07-12] MEDS: amLODIPine 5mg tablet PO SCH (08:44)
[2021-07-12] MEDS: HYDROcodone/acetaminophen 5mg/325mg tablet PO PRN ×3 (08:45→20:16)
[2021-07-12] MEDS: nystatin/triamcinolone cream 15gm TP SCH (08:56)
[2021-07-12 11:00] VITALS: BP 120/48
[2021-07-12] MEDS: bacitracin 15gm ointment TP SCH (14:55)
[2021-07-12 15:00] VITALS: BP 153/64
[2021-07-12] MEDS: mirtazapine 15mg tablet PO SCH (20:15)
[2021-07-12 20:19] VITALS: BP 146/64
[2021-07-12] MEDS: enoxaparin 40mg/0.4ml syringe SQ SCH (20:19)
[2021-07-12 22:00] VITALS: BP 124/58
[2021-07-13 02:00] VITALS: BP 129/61
[2021-07-13] MEDS: ipratropium/albuterol 3ml nebule NEB SCH ×4 (03:21→20:09)
--- NOTE | 2021-07-13 05:32 | NUR ---
PAGER ID: [phone] MESSAGE: Pt Ambika Sommer [facility] room 3022 Dx: small bowel obstruction with Exlap and resection and hernia repair. Pt has intermittent fevers and there's drainage from the Suture site, yellow discharge Stefanie [phone] Addendum: 07/13/21 at 0535 by Stefanie Morrison RN Dr praveena Mace to start with Dressing changes as needed
[2021-07-13 06:17] LABS: BASOPHILS % (AUTO) 0.2 % (0-1); EOSINOPHILS # (AUTO) 0.1 X10'3 (0-0.9); EOSINOPHILS % (AUTO) 0.8 % (0-6); HEMATOCRIT 26.6 % (35.0-45.0); HEMOGLOBIN 8.6 g/dl (12.0-16.0); LYMPHOCYTES # (AUTO) 0.6 X10'3 (1.1-4.8); LYMPHOCYTES % (AUTO) 4.4 % (21-51); MEAN CORPUSCULAR HEMOGLOBIN 27.8 PG (27.0-31.0); MEAN CORPUSCULAR HGB CONC 32.3 g/dL (33.0-36.5); MEAN CORPUSCULAR VOLUME 86.1 FL (78-98); MEAN PLATELET VOLUME 7.5 FL (7.4-10.4); MONOCYTES # (AUTO) 0.3 X10'3 (0-0.9); MONOCYTES % (AUTO) 2.5 % (2-12); NEUTROPHILS # (AUTO) 12.6 X10'3 (1.8-7.7); NEUTROPHILS % (AUTO) 92.1 % (42-75); PLATELET COUNT 383 X10'3 (140-440); RED BLOOD COUNT 3.08 X10'6 (4.20-5.60); RED CELL DISTRIBUTION WIDTH 17.3 % (11.5-14.5); WHITE BLOOD COUNT 13.7 X10'3 (4.5-11.0)
[2021-07-13] MEDS ORDERED: vancomycin/NS 1 GM ADD-VANTAGE 250 ML IV SCH (06:17)
[2021-07-13 06:53] LABS: ALANINE AMINOTRANSFERASE 16 U/L (12-78); ALBUMIN/GLOBULIN RATIO 0.4 (1.1-1.5); ALKALINE PHOSPHATASE 164 IU/L (46-116); ANION GAP 7 (8-16); ASPARTATE AMINO TRANSFERASE 14 U/L (10-37); BILIRUBIN,TOTAL 0.5 MG/DL (0.1-1.0); BLOOD UREA NITROGEN 10 MG/DL (7-18); BUN/CREATININE RATIO 13.5 (6.6-38.0); CHLORIDE 103 MMOL/L (99-107); CREATININE 0.74 MG/DL (0.40-0.90); GLUCOSE 126 MG/DL (70-104); SODIUM 139 MMOL/L (135-145); TOTAL CARBON DIOXIDE 28.6 MMOL/L (24-32); TOTAL PROTEIN 6.6 G/DL (6.4-8.2); eGFR 86 ML/MIN
[2021-07-13 06:59] LABS: POTASSIUM 2.8 MMOL/L (3.5-5.1)
[2021-07-13] MEDS: metoprolol tartrate 25mg tablet PO SCH ×2 (07:19→21:09)
[2021-07-13] MEDS: busPIRone 15mg tablet PO SCH ×4 (07:20→21:07)
[2021-07-13] MEDS: docusate sod 100mg capsule PO SCH ×2 (07:20→21:05)
[2021-07-13] MEDS: amLODIPine 5mg tablet PO SCH (07:20)
[2021-07-13] MEDS: gabapentin 300mg capsule PO SCH ×2 (07:20→21:09)
[2021-07-13] MEDS: lactobacillus rhamnosus 10,000 MMU CELLS/CAPSULE PO SCH ×2 (07:20→21:08)
[2021-07-13] MEDS: sennosides/docusate sodium tablet PO SCH ×2 (07:20→21:06)
[2021-07-13] MEDS: bacitracin 15gm ointment TP SCH (07:21)
[2021-07-13] MEDS: HYDROcodone/acetaminophen 5mg/325mg tablet PO PRN ×2 (07:50→13:33)
[2021-07-13] MEDS: K and/or MAG REPLACEMENT MC SCH ×3 (08:00→20:00)
[2021-07-13] MEDS: vancomycin/NS 1 GM ADD-VANTAGE 250 ML IV SCH ×2 (08:08→16:40)
[2021-07-13] MEDS: nystatin/triamcinolone cream 15gm TP SCH (08:08)
[2021-07-13] MEDS ORDERED: potassium Cl 40MEQ/1/2NS 520ml 520 ML IV PRN ×2 (09:25)
--- NOTE | 2021-07-13 09:25 | NUR ---
PAGER ID: [phone] MESSAGE: room 3022 Ambika Sommer, critical lab potassium is 2.8, i will follow protocol K replacement with 40 K-Dur tab x 3 doses. thank you, Evelyn STEPHENS [phone]
--- NOTE | 2021-07-13 09:31 | NUR ---
PAGER ID: [phone] MESSAGE: room 3022 Ambika Sommer, patient has purulent drainage from surgical wound site, sent culture to lab this morning, awaiting results, started IV ABX (zosyn and vanco). do you still want to discharge patient? thank you Evelyn STEPHENS [phone]
[2021-07-13] MEDS: potassium Cl 20 mEq SR tablet PO PRN ×3 (10:11→21:06)
[2021-07-13] MEDS: piperacillin/tazo 3.375gm/50ml 50 ML IV SCH ×2 (10:11→18:37)
[2021-07-13 11:00] VITALS: BP 123/70
[2021-07-13 15:00] VITALS: BP 132/70
--- NOTE | 2021-07-13 15:56 | NUR ---
PAGER ID: [phone] MESSAGE: room 3022, Ambika Sommer, i acknowledged ouf0ype for "blood culture PRN for fever of 100 or greater". lab does not see this order. should i put in orders for a blood culture because the patient was febrile last night? amy STEPHENS
[2021-07-13 18:00] VITALS: BP 135/71
--- NOTE | 2021-07-13 18:39 | NUR ---
svn triaged today. therapist not available
--- NOTE | 2021-07-13 18:40 | NUR ---
Patient in room PCU 3022. I have received report from SHAUNA STEPHENS and had the opportunity to ask questions and assume patient care.
[2021-07-13] MEDS: mirtazapine 15mg tablet PO SCH (21:08)
[2021-07-13] MEDS: enoxaparin 40mg/0.4ml syringe SQ SCH (21:10)
[2021-07-13 22:00] VITALS: BP 141/73
[2021-07-14] MEDS: vancomycin/NS 1 GM ADD-VANTAGE 250 ML IV SCH ×2 (00:28→09:52)
[2021-07-14] MEDS: piperacillin/tazo 3.375gm/50ml 50 ML IV SCH ×3 (01:51→16:21)
[2021-07-14 02:00] VITALS: BP 149/78
[2021-07-14] MEDS: ipratropium/albuterol 3ml nebule NEB SCH ×4 (03:00→20:41)
[2021-07-14 06:00] VITALS: BP 138/69
--- NOTE | 2021-07-14 06:30 | NUR ---
Patient in room PCU 3022. I have received report from KAT Holm and had the opportunity to ask questions and assume patient care.
--- NOTE | 2021-07-14 06:32 | NUR ---
Problems reprioritized. Patient report given, questions answered & plan of care reviewed with YUSUF STEPHENS.
[2021-07-14] MEDS ORDERED: VANCOMYCIN LEVEL IV ONE (07:30)
[2021-07-14] MEDS: sennosides/docusate sodium tablet PO SCH ×2 (08:00→20:35)
[2021-07-14] MEDS: K and/or MAG REPLACEMENT MC SCH ×4 (08:00→20:52)
[2021-07-14] MEDS: nystatin/triamcinolone cream 15gm TP SCH (08:00)
[2021-07-14] MEDS: bacitracin 15gm ointment TP SCH (08:00)
[2021-07-14] MEDS: docusate sod 100mg capsule PO SCH ×2 (08:00→20:35)
[2021-07-14] MEDS: busPIRone 15mg tablet PO SCH ×4 (09:50→20:31)
[2021-07-14] MEDS: metoprolol tartrate 25mg tablet PO SCH ×2 (09:51→20:36)
[2021-07-14] MEDS: HYDROcodone/acetaminophen 5mg/325mg tablet PO PRN ×3 (09:51→20:41)
[2021-07-14] MEDS: amLODIPine 5mg tablet PO SCH (09:51)
[2021-07-14] MEDS: gabapentin 300mg capsule PO SCH ×2 (09:51→20:32)
[2021-07-14] MEDS: lactobacillus rhamnosus 10,000 MMU CELLS/CAPSULE PO SCH ×2 (09:53→20:33)
[2021-07-14 10:09] LABS: ALANINE AMINOTRANSFERASE 18 U/L (12-78); ALBUMIN 1.9 G/DL (3.4-5.0); ALBUMIN/GLOBULIN RATIO 0.4 (1.1-1.5); ALKALINE PHOSPHATASE 145 IU/L (46-116); ANION GAP 10 (8-16); ASPARTATE AMINO TRANSFERASE 19 U/L (10-37); BILIRUBIN,TOTAL 0.3 MG/DL (0.1-1.0); BLOOD UREA NITROGEN 10 MG/DL (7-18); BUN/CREATININE RATIO 12.2 (6.6-38.0); CALCIUM 7.8 MG/DL (8.5-10.1); CHLORIDE 102 MMOL/L (99-107); CREATININE 0.82 MG/DL (0.40-0.90); GLUCOSE 141 MG/DL (70-104); MAGNESIUM 1.8 MG/DL (1.5-2.4); POTASSIUM 3.4 MMOL/L (3.5-5.1); SODIUM 140 MMOL/L (135-145); TOTAL CARBON DIOXIDE 28.2 MMOL/L (24-32); TOTAL PROTEIN 6.2 G/DL (6.4-8.2); VANCOMYCIN,TROUGH 8.5 UG/ML (6.0-14.0); eGFR 76 ML/MIN
[2021-07-14 10:57] LABS: BASOPHILS # (AUTO) 0.1 X10'3 (0-0.2); BASOPHILS % (AUTO) 0.8 % (0-1); EOSINOPHILS # (AUTO) 0.4 X10'3 (0-0.9); HEMATOCRIT 24.8 % (35.0-45.0); LYMPHOCYTES # (AUTO) 1.1 X10'3 (1.1-4.8); LYMPHOCYTES % (AUTO) 12.8 % (21-51); MEAN CORPUSCULAR HEMOGLOBIN 28.3 PG (27.0-31.0); MEAN CORPUSCULAR HGB CONC 32.1 g/dL (33.0-36.5); MEAN CORPUSCULAR VOLUME 88.3 FL (78-98); MEAN PLATELET VOLUME 7.6 FL (7.4-10.4); MONOCYTES # (AUTO) 0.9 X10'3 (0-0.9); MONOCYTES % (AUTO) 9.7 % (2-12); NEUTROPHILS # (AUTO) 6.4 X10'3 (1.8-7.7); NEUTROPHILS % (AUTO) 72.7 % (42-75); PLATELET COUNT 376 X10'3 (140-440); RED BLOOD COUNT 2.81 X10'6 (4.20-5.60); RED CELL DISTRIBUTION WIDTH 17.7 % (11.5-14.5); WHITE BLOOD COUNT 8.9 X10'3 (4.5-11.0)
[2021-07-14 11:00] VITALS: BP 129/62
[2021-07-14] MEDS: potassium Cl 20 mEq SR tablet PO PRN ×3 (13:52→20:42)
[2021-07-14 15:00] VITALS: BP 131/65
[2021-07-14 18:00] VITALS: BP 133/64
--- NOTE | 2021-07-14 18:49 | NUR ---
Problems reprioritized. Patient report given, questions answered & plan of care reviewed with KAT Finley.
[2021-07-14] MEDS: mirtazapine 15mg tablet PO SCH (20:34)
[2021-07-14] MEDS: enoxaparin 40mg/0.4ml syringe SQ SCH (20:38)
[2021-07-14 22:00] VITALS: BP 114/45
[2021-07-15] MEDS: piperacillin/tazo 3.375gm/50ml 50 ML IV SCH ×4 (01:56→23:33)
[2021-07-15 02:00] VITALS: BP 122/63
[2021-07-15] MEDS: HYDROcodone/acetaminophen 5mg/325mg tablet PO PRN ×4 (02:09→20:55)
[2021-07-15] MEDS: ipratropium/albuterol 3ml nebule NEB SCH ×3 (03:11→15:35)
--- NOTE | 2021-07-15 04:01 | NUR ---
reviewed and edited assessment
[2021-07-15 06:00] VITALS: BP 117/60
--- NOTE | 2021-07-15 06:35 | NUR ---
Problems reprioritized. Patient report given, questions answered & plan of care reviewed with KAT Rivas.
[2021-07-15 06:47] LABS: POTASSIUM 3.8 MMOL/L (3.5-5.1)
--- NOTE | 2021-07-15 07:01 | NUR ---
micro results PAGER ID: [phone] MESSAGE: room 3022 Ambika Kemal, micro results CULT BLOOD Preliminary ORGANISM(S) SEEN:GRAM NEGATIVE RODS POSITIVE BOTTLE(S):SEEN IN AEROBIC BOTTLE Evelyn STEPHENS 2223
--- NOTE | 2021-07-15 07:02 | NUR ---
Patient in room PCU 3022. I have received report from Malia STEPHENS/ Cristal Mccormack and had the opportunity to ask questions and assume patient care.
[2021-07-15] MEDS: K and/or MAG REPLACEMENT MC SCH ×4 (08:00→20:00)
[2021-07-15 08:21] LABS: BASOPHILS # (AUTO) 0.1 X10'3 (0-0.2); BASOPHILS % (AUTO) 0.9 % (0-1); EOSINOPHILS # (AUTO) 0.4 X10'3 (0-0.9); EOSINOPHILS % (AUTO) 5.1 % (0-6); HEMATOCRIT 23.7 % (35.0-45.0); HEMOGLOBIN 7.7 g/dl (12.0-16.0); LYMPHOCYTES # (AUTO) 1.5 X10'3 (1.1-4.8); LYMPHOCYTES % (AUTO) 19.2 % (21-51); MEAN CORPUSCULAR HEMOGLOBIN 28.2 PG (27.0-31.0); MEAN CORPUSCULAR HGB CONC 32.6 g/dL (33.0-36.5); MEAN CORPUSCULAR VOLUME 86.5 FL (78-98); MEAN PLATELET VOLUME 7.8 FL (7.4-10.4); MONOCYTES # (AUTO) 0.6 X10'3 (0-0.9); MONOCYTES % (AUTO) 7.2 % (2-12); NEUTROPHILS # (AUTO) 5.2 X10'3 (1.8-7.7); NEUTROPHILS % (AUTO) 67.6 % (42-75); PLATELET COUNT 394 X10'3 (140-440); RED BLOOD COUNT 2.73 X10'6 (4.20-5.60); RED CELL DISTRIBUTION WIDTH 17.8 % (11.5-14.5); WHITE BLOOD COUNT 7.7 X10'3 (4.5-11.0)
[2021-07-15 08:31] LABS: ALANINE AMINOTRANSFERASE 21 U/L (12-78); ALBUMIN 1.9 G/DL (3.4-5.0); ALBUMIN/GLOBULIN RATIO 0.5 (1.1-1.5); ALKALINE PHOSPHATASE 150 IU/L (46-116); ANION GAP 10 (8-16); ASPARTATE AMINO TRANSFERASE 19 U/L (10-37); BILIRUBIN,TOTAL 0.3 MG/DL (0.1-1.0); BLOOD UREA NITROGEN 13 MG/DL (7-18); BUN/CREATININE RATIO 17.3 (6.6-38.0); CALCIUM 7.6 MG/DL (8.5-10.1); CHLORIDE 105 MMOL/L (99-107); CREATININE 0.75 MG/DL (0.40-0.90); GLUCOSE 104 MG/DL (70-104); SODIUM 143 MMOL/L (135-145); TOTAL CARBON DIOXIDE 27.6 MMOL/L (24-32); TOTAL PROTEIN 6.1 G/DL (6.4-8.2); eGFR 84 ML/MIN
[2021-07-15] MEDS: busPIRone 15mg tablet PO SCH ×4 (08:54→22:04)
[2021-07-15] MEDS: docusate sod 100mg capsule PO SCH ×2 (08:54→22:02)
[2021-07-15 08:55] LABS: ANISOCYTOSIS 1+; PLATELET ESTIMATE NORMAL; TOTAL CELLS COUNTED 100
[2021-07-15] MEDS: gabapentin 300mg capsule PO SCH ×2 (08:55→22:01)
[2021-07-15] MEDS: metoprolol tartrate 25mg tablet PO SCH ×2 (08:55→22:04)
[2021-07-15] MEDS: sennosides/docusate sodium tablet PO SCH ×2 (08:55→20:00)
[2021-07-15] MEDS: amLODIPine 5mg tablet PO SCH (08:55)
[2021-07-15] MEDS: lactobacillus rhamnosus 10,000 MMU CELLS/CAPSULE PO SCH ×2 (08:55→22:02)
[2021-07-15 08:57] LABS: HYPOCHROMASIA 1+
[2021-07-15] MEDS: bacitracin 15gm ointment TP SCH (08:58)
[2021-07-15] MEDS: nystatin/triamcinolone cream 15gm TP SCH (08:59)
--- NOTE | 2021-07-15 10:48 | NUR ---
Reassessment: Pt briefly with a decline in PO intake documented with average 50-75% PO intake 07/11-07/12 however with 100% PO intake surrounding meals. D/w dietary to send double protein TID for satiety and increased protein needs. LBM 07/13, receiving routine bowel care with additional PRN bowel care available. Will continue to follow and monitor need for further nutrition intervention. Rec: 1. Continue regular diet 2. Double eggs WB, double meat BIDLD 3. Routine bowel care 4. Scaled wt this admit, weekly scaled wts thereafter Addendum: 07/15/21 at [address] Amended: Links added.
[2021-07-15 11:00] VITALS: BP 129/60
[2021-07-15 15:00] VITALS: BP 121/48
[2021-07-15] MEDS ORDERED: VANCOMYCIN LEVEL IV ONE (15:30)
[2021-07-15 18:00] VITALS: BP 126/54
--- NOTE | 2021-07-15 19:01 | NUR ---
Patient in room U 3022. I have received report from SHAUNA STEPHENS and had the opportunity to ask questions and assume patient care. Addendum: 07/15/21 at 1901 by Jessie Fregoso RN Amended: Links added.
[2021-07-15 22:00] VITALS: BP 127/61
[2021-07-15] MEDS: mirtazapine 15mg tablet PO SCH (22:01)
[2021-07-15] MEDS: cloNIDine 0.1 mg tablet PO PRN (22:04)
[2021-07-15] MEDS: enoxaparin 40mg/0.4ml syringe SQ SCH (22:05)
--- NOTE | 2021-07-16 00:30 | NUR ---
SKIN CARE DONE LIEN CHANGE DONE AND CALAZIME CREAM APPLIED TO BACK AND BOTTOM. PT USING PURE WICC HAD 1000CC OT AND NEW ONE APPLIED. THEN DRESSING CHANGED TO ABD PER ORDERS AND ALSO BACK OF LEFT KNEE DONE WELL. AFTER COMPLETION PT PUT BACK ON CPAP. TOLERATED WELL.
[2021-07-16 02:00] VITALS: BP 117/53
--- NOTE | 2021-07-16 03:26 | NUR ---
PT RESTING EYES CLOSED NO S&S OF DISTRESS PURE WICC IN PLACE.
[2021-07-16 06:00] VITALS: BP 113/60
--- NOTE | 2021-07-16 06:28 | NUR ---
Problems reprioritized. Patient report given, questions answered & plan of care reviewed with SHAUNA STEPHENS. Addendum: 07/16/21 at 0629 by Jessie Fregoso RN Amended: Links added.
[2021-07-16 06:54] LABS: BASOPHILS % (AUTO) 0.5 % (0-1); EOSINOPHILS # (AUTO) 0.6 X10'3 (0-0.9); EOSINOPHILS % (AUTO) 5.9 % (0-6); HEMATOCRIT 25.7 % (35.0-45.0); HEMOGLOBIN 8.2 g/dl (12.0-16.0); LYMPHOCYTES # (AUTO) 1.8 X10'3 (1.1-4.8); LYMPHOCYTES % (AUTO) 18.9 % (21-51); MEAN CORPUSCULAR HEMOGLOBIN 27.8 PG (27.0-31.0); MEAN CORPUSCULAR HGB CONC 32.1 g/dL (33.0-36.5); MEAN CORPUSCULAR VOLUME 86.7 FL (78-98); MEAN PLATELET VOLUME 7.6 FL (7.4-10.4); MONOCYTES # (AUTO) 0.7 X10'3 (0-0.9); MONOCYTES % (AUTO) 6.9 % (2-12); NEUTROPHILS # (AUTO) 6.5 X10'3 (1.8-7.7); NEUTROPHILS % (AUTO) 67.8 % (42-75); PLATELET COUNT 497 X10'3 (140-440); RED BLOOD COUNT 2.96 X10'6 (4.20-5.60); RED CELL DISTRIBUTION WIDTH 17.1 % (11.5-14.5); WHITE BLOOD COUNT 9.6 X10'3 (4.5-11.0)
--- NOTE | 2021-07-16 07:11 | NUR ---
Patient in room PCU 3022. I have received report from Jessie STEPHENS and had the opportunity to ask questions and assume patient care.
[2021-07-16 07:14] LABS: ALANINE AMINOTRANSFERASE 21 U/L (12-78); ALBUMIN 1.9 G/DL (3.4-5.0); ALBUMIN/GLOBULIN RATIO 0.4 (1.1-1.5); ALKALINE PHOSPHATASE 158 IU/L (46-116); ANION GAP 10 (8-16); ASPARTATE AMINO TRANSFERASE 16 U/L (10-37); BILIRUBIN,TOTAL 0.3 MG/DL (0.1-1.0); BLOOD UREA NITROGEN 11 MG/DL (7-18); BUN/CREATININE RATIO 13.1 (6.6-38.0); CALCIUM 7.9 MG/DL (8.5-10.1); CHLORIDE 105 MMOL/L (99-107); CREATININE 0.84 MG/DL (0.40-0.90); GLUCOSE 106 MG/DL (70-104); MAGNESIUM 1.9 MG/DL (1.5-2.4); SODIUM 144 MMOL/L (135-145); TOTAL CARBON DIOXIDE 29.2 MMOL/L (24-32); TOTAL PROTEIN 6.4 G/DL (6.4-8.2); eGFR 74 ML/MIN
[2021-07-16] MEDS: amLODIPine 5mg tablet PO SCH (07:58)
[2021-07-16] MEDS: gabapentin 300mg capsule PO SCH ×2 (07:58→21:20)
[2021-07-16] MEDS: docusate sod 100mg capsule PO SCH ×2 (07:59→21:21)
[2021-07-16] MEDS: busPIRone 15mg tablet PO SCH ×4 (07:59→21:00)
[2021-07-16] MEDS: metoprolol tartrate 25mg tablet PO SCH ×2 (07:59→21:23)
[2021-07-16] MEDS: bacitracin 15gm ointment TP SCH (07:59)
[2021-07-16] MEDS: lactobacillus rhamnosus 10,000 MMU CELLS/CAPSULE PO SCH ×2 (07:59→21:20)
[2021-07-16] MEDS: sennosides/docusate sodium tablet PO SCH ×2 (07:59→21:24)
[2021-07-16 08:00] LABS: HYPOCHROMASIA 1+; PLATELET ESTIMATE INCREASED; POLYCHROMASIA 1+; TOTAL CELLS COUNTED 100
[2021-07-16] MEDS: K and/or MAG REPLACEMENT MC SCH ×4 (08:00→20:00)
[2021-07-16] MEDS: nystatin/triamcinolone cream 15gm TP SCH (08:00)
[2021-07-16] MEDS: HYDROcodone/acetaminophen 5mg/325mg tablet PO PRN ×4 (08:08→21:25)
[2021-07-16] MEDS: ipratropium/albuterol 3ml nebule NEB SCH ×3 (08:24→23:51)
[2021-07-16] MEDS: piperacillin/tazo 3.375gm/50ml 50 ML IV SCH ×2 (09:42→18:01)
[2021-07-16 11:00] VITALS: BP 113/54
[2021-07-16 15:00] VITALS: BP 115/60
[2021-07-16 19:00] VITALS: BP 131/71
[2021-07-16] MEDS: enoxaparin 40mg/0.4ml syringe SQ SCH (21:22)
[2021-07-16] MEDS: mirtazapine 15mg tablet PO SCH (21:25)
[2021-07-16 23:00] VITALS: BP 125/55
[2021-07-17 03:00] VITALS: BP 131/64
[2021-07-17] MEDS: ipratropium/albuterol 3ml nebule NEB SCH ×2 (04:10→08:26)
[2021-07-17 06:00] VITALS: BP 150/54
[2021-07-17 06:32] LABS: BASOPHILS # (AUTO) 0.1 X10'3 (0-0.2); BASOPHILS % (AUTO) 0.9 % (0-1); EOSINOPHILS # (AUTO) 0.6 X10'3 (0-0.9); EOSINOPHILS % (AUTO) 5.7 % (0-6); HEMATOCRIT 27.2 % (35.0-45.0); HEMOGLOBIN 8.6 g/dl (12.0-16.0); LYMPHOCYTES % (AUTO) 18.1 % (21-51); MEAN CORPUSCULAR HEMOGLOBIN 27.9 PG (27.0-31.0); MEAN CORPUSCULAR HGB CONC 31.7 g/dL (33.0-36.5); MEAN CORPUSCULAR VOLUME 88.1 FL (78-98); MEAN PLATELET VOLUME 7.4 FL (7.4-10.4); MONOCYTES # (AUTO) 0.8 X10'3 (0-0.9); MONOCYTES % (AUTO) 7.2 % (2-12); NEUTROPHILS # (AUTO) 7.4 X10'3 (1.8-7.7); NEUTROPHILS % (AUTO) 68.1 % (42-75); PLATELET COUNT 523 X10'3 (140-440); RED BLOOD COUNT 3.09 X10'6 (4.20-5.60); RED CELL DISTRIBUTION WIDTH 16.9 % (11.5-14.5); WHITE BLOOD COUNT 10.8 X10'3 (4.5-11.0)
[2021-07-17 07:17] LABS: ALANINE AMINOTRANSFERASE 19 U/L (12-78); ALBUMIN/GLOBULIN RATIO 0.5 (1.1-1.5); ALKALINE PHOSPHATASE 139 IU/L (46-116); ANION GAP 9 (8-16); ASPARTATE AMINO TRANSFERASE 15 U/L (10-37); BILIRUBIN,TOTAL 0.2 MG/DL (0.1-1.0); BLOOD UREA NITROGEN 12 MG/DL (7-18); BUN/CREATININE RATIO 14.6 (6.6-38.0); CALCIUM 8.2 MG/DL (8.5-10.1); CHLORIDE 106 MMOL/L (99-107); CREATININE 0.82 MG/DL (0.40-0.90); GLUCOSE 109 MG/DL (70-104); SODIUM 144 MMOL/L (135-145); TOTAL CARBON DIOXIDE 28.8 MMOL/L (24-32); TOTAL PROTEIN 6.3 G/DL (6.4-8.2); eGFR 76 ML/MIN
[2021-07-17 07:22] LABS: ANISOCYTOSIS 1+; HYPOCHROMASIA 1+; NUCLEATED RED BLOOD CELLS 1 /100WBC (0-0); PLATELET ESTIMATE INCREASED; POLYCHROMASIA 1+; TOTAL CELLS COUNTED 100
[2021-07-17] MEDS: K and/or MAG REPLACEMENT MC SCH ×2 (08:00)
[2021-07-17] MEDS: piperacillin/tazo 3.375gm/50ml 50 ML IV SCH ×2 (08:55)
[2021-07-17] MEDS: lactobacillus rhamnosus 10,000 MMU CELLS/CAPSULE PO SCH (08:55)
[2021-07-17] MEDS: busPIRone 15mg tablet PO SCH ×2 (08:55→13:15)
[2021-07-17] MEDS: sennosides/docusate sodium tablet PO SCH (08:55)
[2021-07-17] MEDS: gabapentin 300mg capsule PO SCH (08:56)
[2021-07-17] MEDS: metoprolol tartrate 25mg tablet PO SCH (08:56)
[2021-07-17] MEDS: docusate sod 100mg capsule PO SCH (08:56)
[2021-07-17] MEDS: amLODIPine 5mg tablet PO SCH (08:56)
[2021-07-17] MEDS: nystatin/triamcinolone cream 15gm TP SCH (08:59)
[2021-07-17] MEDS: bacitracin 15gm ointment TP SCH (08:59)
[2021-07-17] MEDS ORDERED: LEVO750T46 PO (10:46)
[2021-07-17 11:00] VITALS: BP 144/70
[2021-07-17] MEDS: HYDROcodone/acetaminophen 5mg/325mg tablet PO PRN (13:17)
== END 2021-07-17 16:56 | disposition home health service (06) | DRG 227 ==
LOC: ER 10:15 → ED HOLD 14:53 → SUR 3N 07-05 07:30 → ICU 2S 07-05 15:52 → PCU 3S 07-07 17:00
PROVIDERS: ADMIT Family Medicine; ATTEND Family Medicine
PROC: 0D9670Z Drainage of Stomach with Drainage Device, Via Natural or Artificial Opening (ICD-10-PCS; 2021-07-04)
PROC: 0WQF0ZZ Repair Abdominal Wall, Open Approach (ICD-10-PCS; principal; 2021-07-05 12:46)
PROC: 5A09357 Assistance with Respiratory Ventilation, Less than 24 Consecutive Hours, Continuous Positive Airway Pressure (ICD-10-PCS; 2021-07-08)
PROC: 5A09357 Assistance with Respiratory Ventilation, Less than 24 Consecutive Hours, Continuous Positive Airway Pressure (ICD-10-PCS; 2021-07-09)
PROC: 5A09357 Assistance with Respiratory Ventilation, Less than 24 Consecutive Hours, Continuous Positive Airway Pressure (ICD-10-PCS; 2021-07-10)
PROC: 5A09357 Assistance with Respiratory Ventilation, Less than 24 Consecutive Hours, Continuous Positive Airway Pressure (ICD-10-PCS; 2021-07-11)
PROC: BW211ZZ Computerized Tomography (CT Scan) of Abdomen and Pelvis using Low Osmolar Contrast (ICD-10-PCS; 2021-07-11)
PROC: 5A09357 Assistance with Respiratory Ventilation, Less than 24 Consecutive Hours, Continuous Positive Airway Pressure (ICD-10-PCS; 2021-07-12)
PROC: 5A09357 Assistance with Respiratory Ventilation, Less than 24 Consecutive Hours, Continuous Positive Airway Pressure (ICD-10-PCS; 2021-07-13)
PROC: 5A09357 Assistance with Respiratory Ventilation, Less than 24 Consecutive Hours, Continuous Positive Airway Pressure (ICD-10-PCS; 2021-07-14)
PROC: 5A09357 Assistance with Respiratory Ventilation, Less than 24 Consecutive Hours, Continuous Positive Airway Pressure (ICD-10-PCS; 2021-07-15)
PROC: 5A09357 Assistance with Respiratory Ventilation, Less than 24 Consecutive Hours, Continuous Positive Airway Pressure (ICD-10-PCS; 2021-07-16)
DX: K43.6 Other and unspecified ventral hernia with obstruction, without gangrene (principal); J96.21 Acute and chronic respiratory failure with hypoxia; E87.2 Acidosis; D63.8 Anemia in other chronic diseases classified elsewhere; L03.311 Cellulitis of abdominal wall; D62 Acute posthemorrhagic anemia; Z68.45 Body mass index [BMI] 70 or greater, adult; E11.9 Type 2 diabetes mellitus without complications; E66.01 Morbid (severe) obesity due to excess calories; F20.9 Schizophrenia, unspecified; F31.9 Bipolar disorder, unspecified; G47.33 Obstructive sleep apnea (adult) (pediatric); B96.20 Unspecified Escherichia coli [E. coli] as the cause of diseases classified elsewhere; B96.5 Pseudomonas (aeruginosa) (mallei) (pseudomallei) as the cause of diseases classified elsewhere; Z20.822 Contact with and (suspected) exposure to COVID-19; S80.919A Unspecified superficial injury of unspecified knee, initial encounter; X58.XXXA Exposure to other specified factors, initial encounter; E87.6 Hypokalemia; S31.109A Unspecified open wound of abdominal wall, unspecified quadrant without penetration into peritoneal cavity, initial encounter; F41.9 Anxiety disorder, unspecified; M54.9 Dorsalgia, unspecified; I10 Essential (primary) hypertension; Z78.1 Physical restraint status; Z82.0 Family history of epilepsy and other diseases of the nervous system; Z82.3 Family history of stroke; Z82.49 Family history of ischemic heart disease and other diseases of the circulatory system; Z87.891 Personal history of nicotine dependence; Z79.899 Other long term (current) drug therapy; Y93.89 Activity, other specified; Y92.89 Other specified places as the place of occurrence of the external cause; Y99.8 Other external cause status
CPT/HCPCS: 36415; 36600; 71045; 74018; 74177; 74248; 76937; 80048; 80053; 80076; 80202; 81001; 82803; 82948; 83605; 83690; 83735; 84100; 85007; 85018; 85025; 86885; 86900; 86901; 86922; 87040; 87070; 87077; 87081; 87186; 87635; 94002; 94003; 94640; 94760; 94799; 96365; 96375; 97110; 97161; 97530; 99285; A4618; A6253; A7000; C9113; G0378; J0330; J0694; J1170; J1650; J1940; J2250; J2270; J2405; J2543; J2704; J3010; J3370; J3480; J3490; J7030; J7120; J7999; Q9963; Q9967

== ENCOUNTER 2021-07-21 10:26 | Emergency (ER) | payer MEDICAID ==
[~2021-07-21] VITALS: Ht 160 cm; Wt 209.1 kg
[~2021-07-21 10:26] MED LIST changes: -ARIP30TA PO; -CLIN150C8 PO; +FERR325T32 PO; +LEVO750T46 PO; +MELO-102 PO; -ONDA4TAB6 PO; -PALI6TAB PO; -POTA20TA19 PO; -SENN8.6T19 PO; -TOP100T PO; -VARE1TAB22 PO
[2021-07-21 12:41] LABS: BASOPHILS # (AUTO) 0.1 X10'3 (0-0.2); BASOPHILS % (AUTO) 0.9 % (0-1); EOSINOPHILS # (AUTO) 0.3 X10'3 (0-0.9); EOSINOPHILS % (AUTO) 2.6 % (0-6); HEMATOCRIT 27.9 % (35.0-45.0); HEMOGLOBIN 8.7 g/dl (12.0-16.0); LYMPHOCYTES # (AUTO) 1.8 X10'3 (1.1-4.8); LYMPHOCYTES % (AUTO) 17.4 % (21-51); MEAN CORPUSCULAR HEMOGLOBIN 28.1 PG (27.0-31.0); MEAN CORPUSCULAR HGB CONC 31.2 g/dL (33.0-36.5); MEAN PLATELET VOLUME 6.8 FL (7.4-10.4); MONOCYTES # (AUTO) 0.5 X10'3 (0-0.9); MONOCYTES % (AUTO) 4.4 % (2-12); NEUTROPHILS # (AUTO) 7.6 X10'3 (1.8-7.7); NEUTROPHILS % (AUTO) 74.7 % (42-75); PLATELET COUNT 507 X10'3 (140-440); RED CELL DISTRIBUTION WIDTH 18.2 % (11.5-14.5); WHITE BLOOD COUNT 10.2 X10'3 (4.5-11.0)
[2021-07-21 12:57] LABS: PARTIAL THROMBOPLASTIN TIME 29 SECONDS (22-32)
[2021-07-21] MEDS ORDERED: iohexol 300mg/ml 100ml inj. ONE (12:59)
[2021-07-21 13:02] LABS: ALANINE AMINOTRANSFERASE 24 U/L (12-78); ALBUMIN 2.8 G/DL (3.4-5.0); ALBUMIN/GLOBULIN RATIO 0.6 (1.1-1.5); ALKALINE PHOSPHATASE 119 IU/L (46-116); ANION GAP 9 (8-16); ASPARTATE AMINO TRANSFERASE 14 U/L (10-37); BILIRUBIN,DIRECT 0.1 MG/DL (0-0.3); BILIRUBIN,TOTAL 0.2 MG/DL (0.1-1.0); BLOOD UREA NITROGEN 14 MG/DL (7-18); BUN/CREATININE RATIO 12.6 (6.6-38.0); CALCIUM 8.5 MG/DL (8.5-10.1); CHLORIDE 109 MMOL/L (99-107); CREATININE 1.11 MG/DL (0.40-0.90); GLUCOSE 98 MG/DL (70-104); LIPASE < 50 U/L (73-393); POTASSIUM 3.5 MMOL/L (3.5-5.1); SODIUM 144 MMOL/L (135-145); TOTAL CARBON DIOXIDE 26.2 MMOL/L (24-32); TOTAL PROTEIN 7.4 G/DL (6.4-8.2); eGFR 54 ML/MIN
[2021-07-21 13:05] VITALS: BP 130/80
[2021-07-21] MEDS ORDERED: Dakins solution (1/4 strength) 473ml solution TP ONE (13:30)
== END 2021-07-21 14:33 | disposition home or self-care (01) ==
LOC: ER 10:27
DX: L03.311 Cellulitis of abdominal wall (principal); I10 Essential (primary) hypertension; F41.9 Anxiety disorder, unspecified; F31.9 Bipolar disorder, unspecified; F20.9 Schizophrenia, unspecified; Z85.9 Personal history of malignant neoplasm, unspecified; Z98.890 Other specified postprocedural states; Z79.2 Long term (current) use of antibiotics; Z79.899 Other long term (current) drug therapy
CPT/HCPCS: 36415; 80048; 80076; 83605; 83690; 85025; 85610; 85730; 99283; Q9967

== ENCOUNTER 2021-07-22 10:02 | Emergency (ER) | payer MEDICAID ==
[~2021-07-22] VITALS: Ht 160 cm; Wt 209.1 kg
[~2021-07-22 10:02] MED LIST changes: -ALBU17AE26 IH
[2021-07-22 11:35] LABS: BASOPHILS # (AUTO) 0.1 X10'3 (0-0.2); BASOPHILS % (AUTO) 1.1 % (0-1); EOSINOPHILS # (AUTO) 0.2 X10'3 (0-0.9); EOSINOPHILS % (AUTO) 2.4 % (0-6); HEMATOCRIT 28.3 % (35.0-45.0); HEMOGLOBIN 8.9 g/dl (12.0-16.0); LYMPHOCYTES # (AUTO) 1.8 X10'3 (1.1-4.8); LYMPHOCYTES % (AUTO) 18.5 % (21-51); MEAN CORPUSCULAR HEMOGLOBIN 28.7 PG (27.0-31.0); MEAN CORPUSCULAR HGB CONC 31.6 g/dL (33.0-36.5); MEAN CORPUSCULAR VOLUME 91.1 FL (78-98); MEAN PLATELET VOLUME 7.1 FL (7.4-10.4); MONOCYTES # (AUTO) 0.4 X10'3 (0-0.9); MONOCYTES % (AUTO) 4.5 % (2-12); NEUTROPHILS # (AUTO) 7.3 X10'3 (1.8-7.7); NEUTROPHILS % (AUTO) 73.5 % (42-75); PLATELET COUNT 444 X10'3 (140-440); RED CELL DISTRIBUTION WIDTH 18.7 % (11.5-14.5); WHITE BLOOD COUNT 9.9 X10'3 (4.5-11.0)
[2021-07-22 11:48] LABS: ALANINE AMINOTRANSFERASE 22 U/L (12-78); ALBUMIN 2.9 G/DL (3.4-5.0); ALBUMIN/GLOBULIN RATIO 0.6 (1.1-1.5); ALKALINE PHOSPHATASE 113 IU/L (46-116); ANION GAP 13 (8-16); ASPARTATE AMINO TRANSFERASE 10 U/L (10-37); BILIRUBIN,DIRECT 0.1 MG/DL (0-0.3); BILIRUBIN,TOTAL 0.2 MG/DL (0.1-1.0); BLOOD UREA NITROGEN 16 MG/DL (7-18); BUN/CREATININE RATIO 13.4 (6.6-38.0); CALCIUM 8.6 MG/DL (8.5-10.1); CHLORIDE 109 MMOL/L (99-107); CREATININE 1.19 MG/DL (0.40-0.90); GLUCOSE 105 MG/DL (70-104); LIPASE < 50 U/L (73-393); POTASSIUM 3.7 MMOL/L (3.5-5.1); SODIUM 146 MMOL/L (135-145); TOTAL CARBON DIOXIDE 24.2 MMOL/L (24-32); TOTAL PROTEIN 7.7 G/DL (6.4-8.2); eGFR 50 ML/MIN
[2021-07-22 12:19] LABS: PARTIAL THROMBOPLASTIN TIME 26 SECONDS (22-32)
--- NOTE | 2021-07-22 13:58 | NUR ---
Pt given and understands d/c instructions. IV d/c'd, catheter was intact. Large abd dressing changed. Abd wound gapping, with granulating tissule, and a lot of thick purulent matter. Pt requested a wheelchair to the lobby.
[2021-07-22 14:00] VITALS: BP 132/70
== END 2021-07-22 14:02 | disposition home or self-care (01) ==
LOC: ER 10:03
DX: T81.89XA Other complications of procedures, not elsewhere classified, initial encounter (principal); I10 Essential (primary) hypertension; F41.9 Anxiety disorder, unspecified; F32.9 Major depressive disorder, single episode, unspecified; F20.9 Schizophrenia, unspecified; Z79.899 Other long term (current) drug therapy; Z20.822 Contact with and (suspected) exposure to COVID-19
CPT/HCPCS: 80048; 80076; 83690; 85025; 85610; 85730; 87635; 99283; C9803

== ENCOUNTER 2022-09-28 11:36 | Emergency (ER) | payer MEDICAID ==
[~2022-09-28] VITALS: Ht 160 cm; Wt 181.8 kg
[~2022-09-28 11:36] MED LIST changes: -LEVO750T46 PO
[2022-09-28 12:38] LABS: BASOPHILS # (AUTO) 0.1 X10'3 (0-0.2); BASOPHILS % (AUTO) 0.6 % (0-1); EOSINOPHILS # (AUTO) 0.2 X10'3 (0-0.9); EOSINOPHILS % (AUTO) 2.3 % (0-6); HEMATOCRIT 33.7 % (35.0-45.0); HEMOGLOBIN 10.7 g/dl (12.0-16.0); LYMPHOCYTES % (AUTO) 19.5 % (21-51); MEAN CORPUSCULAR HEMOGLOBIN 27.1 PG (27.0-31.0); MEAN CORPUSCULAR HGB CONC 31.9 g/dL (33.0-36.5); MEAN PLATELET VOLUME 7.3 FL (7.4-10.4); MONOCYTES # (AUTO) 0.5 X10'3 (0-0.9); MONOCYTES % (AUTO) 4.7 % (2-12); NEUTROPHILS # (AUTO) 7.3 X10'3 (1.8-7.7); NEUTROPHILS % (AUTO) 72.9 % (42-75); PLATELET COUNT 256 X10'3 (140-440); RED BLOOD COUNT 3.96 X10'6 (4.20-5.60); RED CELL DISTRIBUTION WIDTH 15.8 % (11.5-14.5)
[2022-09-28 12:50] LABS: HCG SERUM QL NEGATIVE
[2022-09-28 12:57] LABS: ALANINE AMINOTRANSFERASE 16 U/L (12-78); ALBUMIN 3.5 G/DL (3.4-5.0); ALBUMIN/GLOBULIN RATIO 0.9 (1.1-1.5); ALKALINE PHOSPHATASE 83 IU/L (46-116); ANION GAP 7 (8-16); ASPARTATE AMINO TRANSFERASE 9 U/L (10-37); BILIRUBIN,TOTAL 0.3 MG/DL (0.1-1.0); BLOOD UREA NITROGEN 16 MG/DL (7-18); BUN/CREATININE RATIO 21.1 (6.6-38.0); CALCIUM 8.9 MG/DL (8.5-10.1); CHLORIDE 107 MMOL/L (99-107); CREATININE 0.76 MG/DL (0.40-0.90); GLUCOSE 99 MG/DL (70-104); POTASSIUM 4.2 MMOL/L (3.5-5.1); SODIUM 142 MMOL/L (135-145); TOTAL CARBON DIOXIDE 28.4 MMOL/L (24-32); TOTAL PROTEIN 7.5 G/DL (6.4-8.2); eGFR 83 ML/MIN
[2022-09-28 13:05] LABS: MAGNESIUM 1.9 MG/DL (1.5-2.4)
[2022-09-28] MEDS ORDERED: iohexol 350MG/ML 100ml bottle IV ONE (14:00)
[2022-09-28] MEDS ORDERED: AMLO5TAB PO (15:54)
[2022-09-28] MEDS ORDERED: amLODIPine 5mg tablet PO ONE (15:55)
[2022-09-28 17:46] VITALS: BP 177/88
== END 2022-09-28 17:49 | disposition home or self-care (01) ==
LOC: ER 11:36
DX: R42 Dizziness and giddiness (principal); I10 Essential (primary) hypertension; J98.01 Acute bronchospasm; F31.9 Bipolar disorder, unspecified; F20.9 Schizophrenia, unspecified; Z79.899 Other long term (current) drug therapy
CPT/HCPCS: 36415; 71045; 71275; 80053; 83735; 84484; 84703; 85025; 93005; 99285; J3490; Q9967

== ENCOUNTER 2023-09-30 10:44 | Emergency (ER) | payer MEDICAID ==
[~2023-09-30] VITALS: Ht 160 cm; Wt 216.4 kg
[~2023-09-30 10:44] MED LIST changes: +AMLO5TAB PO; -MIRT-116 PO; +MIRT-142 PO
[2023-09-30 11:02] VITALS: BP 156/99; PULSE 94; O2SAT 95
[2023-09-30] MEDS ORDERED: ketorolac trometh. 30mg/ml inj. IM ONE (13:00)
[2023-09-30] MEDS ORDERED: HYDR-3965 PO (13:05)
[2023-09-30] MEDS ORDERED: IBUP-1984 PO (13:05)
[2023-09-30] MEDS ORDERED: CLIN300C3 PO (13:05)
[2023-09-30 17:59] VITALS: RESP 18
--- NOTE | 2023-09-30 18:06 | NUR ---
I have reviewed and agree with all interventions, assessments performed and documented by Celsa Che LVN
[2023-09-30 18:14] VITALS: TEMP 97.9
== END 2023-09-30 18:15 | disposition home or self-care (01) ==
LOC: ER 10:45
DX: K04.7 Periapical abscess without sinus (principal); F17.200 Nicotine dependence, unspecified, uncomplicated; F31.9 Bipolar disorder, unspecified; I10 Essential (primary) hypertension; F20.9 Schizophrenia, unspecified; Z90.49 Acquired absence of other specified parts of digestive tract; Z79.899 Other long term (current) drug therapy
CPT/HCPCS: 96372; 99283; J1885

== ENCOUNTER 2024-02-20 14:48 | Outpatient (CLI) | payer MEDICAID | END 2024-02-20 23:59 | disposition home or self-care (01) | LOC: RAD 14:48 | PROVIDERS: ATTEND Family Medicine | DX: M79.622 Pain in left upper arm (principal) | CPT/HCPCS: 73060 ==

== ENCOUNTER 2024-03-07 15:13 | Emergency (ER) | payer MEDICAID ==
[~2024-03-07] VITALS: Ht 160 cm; Wt 175.0 kg
[2024-03-07 15:22] VITALS: TEMP 98.6
[2024-03-07 16:01] LABS: BASOPHILS # (AUTO) 0.1 X10'3 (0-0.2); BASOPHILS % (AUTO) 0.8 % (0-1); EOSINOPHILS # (AUTO) 0.3 X10'3 (0-0.9); EOSINOPHILS % (AUTO) 2.1 % (0-6); HEMATOCRIT 40.9 % (35.0-45.0); HEMOGLOBIN 13.4 g/dl (12.0-16.0); LYMPHOCYTES % (AUTO) 23.1 % (21-51); MEAN CORPUSCULAR HEMOGLOBIN 29.6 PG (27.0-31.0); MEAN CORPUSCULAR HGB CONC 32.8 g/dL (33.0-36.5); MEAN CORPUSCULAR VOLUME 90.3 FL (78-98); MEAN PLATELET VOLUME 7.3 FL (7.4-10.4); MONOCYTES # (AUTO) 0.5 X10'3 (0-0.9); PLATELET COUNT 224 X10'3 (140-440); RED BLOOD COUNT 4.53 X10'6 (4.20-5.60); RED CELL DISTRIBUTION WIDTH 15.5 % (11.5-14.5); WHITE BLOOD COUNT 12.8 X10'3 (4.5-11.0)
[2024-03-07 16:24] LABS: ANION GAP 10 (8-16); BLOOD UREA NITROGEN 17 MG/DL (7-18); BUN/CREATININE RATIO 17.9 (10.0-20.0); CALCIUM 9.1 MG/DL (8.5-10.1); CHLORIDE 102 MMOL/L (99-107); CREATININE 0.95 MG/DL (0.40-0.90); GLUCOSE 102 MG/DL (70-104); POTASSIUM 3.8 MMOL/L (3.5-5.1); PRO BRAIN NATRIURETIC PEPTIDE < 30 PG/ML (0-125); SODIUM 140 MMOL/L (135-145); TOTAL CARBON DIOXIDE 28.4 MMOL/L (24-32); eCRCL 61 ML/MIN; eGFR 63 ML/MIN
[2024-03-07] MEDS: normal saline 1000ml 1,000 ML IV ONE (18:08)
[2024-03-07 18:51] VITALS: BP 150/98; PULSE 79; RESP 20; O2SAT 97
== END 2024-03-07 19:36 | disposition home or self-care (01) ==
LOC: ER 15:14
DX: R00.2 Palpitations (principal); R42 Dizziness and giddiness; F31.9 Bipolar disorder, unspecified; F17.200 Nicotine dependence, unspecified, uncomplicated; Z79.899 Other long term (current) drug therapy; Z79.2 Long term (current) use of antibiotics
CPT/HCPCS: 36415; 71045; 80048; 83880; 84484; 85025; 93005; 96360; 99285; J7030

== ENCOUNTER 2024-11-26 16:52 | Emergency (ER) | payer MEDICAID ==
[~2024-11-26] VITALS: Ht 160 cm; Wt 182.5 kg
[~2024-11-26 16:52] MED LIST changes: +GABA-1405 PO; -GABA600T13 PO
[2024-11-26 17:31] LABS: URINE HCG NEGATIVE (NEG)
[2024-11-26 17:48] LABS: BASOPHILS # (AUTO) 0.1 X10'3 (0-0.2); BASOPHILS % (AUTO) 0.8 % (0-1); EOSINOPHILS # (AUTO) 0.2 X10'3 (0-0.9); EOSINOPHILS % (AUTO) 1.6 % (0-6); HEMATOCRIT 39.7 % (35.0-45.0); HEMOGLOBIN 13.4 g/dl (12.0-16.0); LYMPHOCYTES # (AUTO) 2.6 X10'3 (1.1-4.8); LYMPHOCYTES % (AUTO) 17.4 % (21-51); MEAN CORPUSCULAR HEMOGLOBIN 30.3 PG (27.0-31.0); MEAN CORPUSCULAR HGB CONC 33.7 g/dL (33.0-36.5); MEAN CORPUSCULAR VOLUME 89.8 FL (78-98); MEAN PLATELET VOLUME 7.6 FL (7.4-10.4); MONOCYTES # (AUTO) 0.7 X10'3 (0-0.9); MONOCYTES % (AUTO) 4.8 % (2-12); NEUTROPHILS # (AUTO) 11.2 X10'3 (1.8-7.7); NEUTROPHILS % (AUTO) 75.4 % (42-75); PLATELET COUNT 309 X10'3 (140-440); RED BLOOD COUNT 4.42 X10'6 (4.20-5.60); RED CELL DISTRIBUTION WIDTH 15.4 % (11.5-14.5); WHITE BLOOD COUNT 14.8 X10'3 (4.5-11.0)
[2024-11-26 17:49] LABS: BILIRUBIN,URINE NEGATIVE (Neg); CLARITY,URINE CLEAR (Clear); COLOR,URINE YELLOW (Yellow); GLUCOSE, URINE NEGATIVE (Neg); KETONES,URINE NEGATIVE (Neg); LEUKOCYTE ESTERASE ,URINE NEGATIVE (Neg); NITRITES, URINE NEGATIVE (Neg); OCCULT BLOOD,URINE NEGATIVE (Neg); PROTEIN,URINE NEGATIVE (Neg)
[2024-11-26 17:53] LABS: UA COLLECTION TYPE NON-SPECIFIED
[2024-11-26 18:02] LABS: ALANINE AMINOTRANSFERASE 23 U/L (12-78); ALBUMIN 4.1 G/DL (3.4-5.0); ALBUMIN/GLOBULIN RATIO 0.9 (1.1-1.5); ALKALINE PHOSPHATASE 98 IU/L (46-116); ANION GAP 9 (8-16); ASPARTATE AMINO TRANSFERASE 13 U/L (10-37); BILIRUBIN,TOTAL 0.5 MG/DL (0.1-1.0); BLOOD UREA NITROGEN 8 MG/DL (7-18); BUN/CREATININE RATIO 9.2 (10.0-20.0); CALCIUM 8.9 MG/DL (8.5-10.1); CHLORIDE 102 MMOL/L (99-107); CREATININE 0.87 MG/DL (0.40-0.90); GLUCOSE 129 MG/DL (70-104); LIPASE 16 U/L (16-77); POTASSIUM 3.4 MMOL/L (3.5-5.1); SODIUM 139 MMOL/L (135-145); TOTAL CARBON DIOXIDE 27.9 MMOL/L (24-32); TOTAL PROTEIN 8.7 G/DL (6.4-8.2); eCRCL 67 ML/MIN; eGFR 70 ML/MIN
[2024-11-27 01:00] VITALS: PULSE 86
[2024-11-27] MEDS: HYDROcodone/acetaminophen 10/325mg tab PO ONE (01:31)
[2024-11-27] MEDS ORDERED: ARIP30TA3 PO (01:35)
[2024-11-27] MEDS ORDERED: HYDR-3686 PO (01:35)
[2024-11-27 02:01] VITALS: BP 132/74; RESP 15; TEMP 98; O2SAT 96
== END 2024-11-27 02:17 | disposition home or self-care (01) ==
LOC: ER 16:52
DX: R10.84 Generalized abdominal pain (principal); I10 Essential (primary) hypertension; I25.10 Atherosclerotic heart disease of native coronary artery without angina pectoris; F20.9 Schizophrenia, unspecified; F41.9 Anxiety disorder, unspecified; F32.A Depression, unspecified; Z79.899 Other long term (current) drug therapy; Z98.890 Other specified postprocedural states
CPT/HCPCS: 36415; 74018; 80053; 81003; 81025; 83690; 84145; 85025; 99284